=== PATIENT | male | born 1960 | race Caucasian/White ===

== ENCOUNTER → 2018-07-19 | Outpatient (CLI) | payer OTHER, SELFPAY ==
[2018-07-11 08:14] VITALS: BMI 28.7
--- NOTE | 2018-07-19 13:03 | RAD_ITS ---
STUDY: X-RAY - LUMBAR SPINE REASON FOR EXAM: Male, 58 years old. Chronic low back pain. TECHNIQUE: AP and lateral view(s) of the lumbar spine were obtained. COMPARISON: None FINDINGS: Normal lumbar lordosis. There is mild levoscoliosis. There is minimal retrolisthesis of L1 over L2 and L2 over L3. There is mild anterior wedging of T12 and L1 vertebrae with mild endplate spondylosis. Normal disc space heights. There is no demonstrated fracture. There is atherosclerotic calcification of the abdominal aorta without a demonstrated aneurysm. RAD/Lumbar Spine 2 or 3 Views IMPRESSION: Degenerative changes of the spine, as detailed above. Electronically Signed: Gordy Vogt MD at 13:05 EDT Tel , Service support ,
--- NOTE | 2018-07-19 13:12 | RAD_ITS ---
STUDY: X-RAY - SACRUM/COCCYX REASON FOR EXAM: Male, 58 years old. Chronic low back pain. TECHNIQUE: 3 view(s) of the sacrum and coccyx were obtained. COMPARISON: None. FINDINGS: Normal bilateral sacroiliac joints. Normal visualized sacral ala and fused sacral bodies. Normal sacrococcygeal junction with a normal angulation. Normal coccygeal segments. Metallic densities are seen overlying the left side of the pelvis. RAD/Sacrum-Coccyx min 2 Views IMPRESSION: No demonstrated acute changes. Electronically Signed: Gordy Vogt MD at 13:06 EDT Tel , Service support ,
== END | disposition home or self-care (01) ==
LOC: RAD 13:00
PROVIDERS: Family Provider Family Medicine; PCP Family Medicine; Referring Provider Anesthesiology Pain Medicine; Visit Provider Anesthesiology Pain Medicine
DX: M54.9 Dorsalgia, unspecified (principal)
CPT/HCPCS: 72100; 72220

== ENCOUNTER → 2018-10-02 | Outpatient (CLI) | payer OTHER, SELFPAY ==
[2018-07-25 16:03] VITALS: BMI 29.2
[2018-10-02 16:36] LABS: Amphetamine Urine VISTA NEGATIVE (<1000 ng/mL); Barbiturate Urine VISTA NEGATIVE (< 200 ng/mL); Benzodiazepine Urine VISTA NEGATIVE (< 200 ng/mL); Cocaine Urine VISTA NEGATIVE (< 300 ng/mL); Ecstacy Urine VISTA NEGATIVE (< 500 ng/mL); Methadone Urine VISTA NEGATIVE (< 300 ng/mL); PCP Urine VISTA NEGATIVE (< 25 ng/mL); THC Urine VISTA NEGATIVE (< 50 ng/mL); Vista UDS pH Range 6
== END | disposition home or self-care (01) ==
LOC: LAB 14:42
PROVIDERS: Family Provider Family Medicine; PCP Family Medicine; Referring Provider Anesthesiology Pain Medicine; Visit Provider Anesthesiology Pain Medicine
DX: F11.20 Opioid dependence, uncomplicated (principal)
CPT/HCPCS: 80307

== ENCOUNTER → 2019-07-02 | Outpatient (CLI) | payer OTHER, SELFPAY ==
[2019-07-02 11:38] VITALS: BMI 29.2
[2019-07-02 13:54] LABS: ALB/GLOB Ratio 0.9 RATIO (0.9-2.4); AST(SGOT) 19 U/L (15-37); Alanine Aminotransfer ALT/SGPT 36 U/L (16-61); Albumin, Serum 3.7 g/dL (3.2-5.0); Alkaline Phosphatase 107 U/L (45-117); Anion Gap 4 (5-15); BUN 7 mg/dL (7-18); BUN/Creat Ratio 6.1 RATIO (10-20); Calcium,Total 9.7 mg/dL (8.5-10.1); Chloride 101 mmol/L (98-107); Creatinine, Serum 1.15 mg/dL (0.70-1.30); EST Glomerular Filtration Rate 69 mL/min (>60); Est Glom Filt Rate - Afr Amer 83 mL/min (>60); Globulin 4.2 g/dL (2.2-4.2); Glucose 264 mg/dL (74-106); Protein, Total 7.9 g/dL (6.4-8.2); Sodium Level 136 mmol/L (136-145); Uric Acid 6.1 mg/dL (3.5-7.2)
== END | disposition home or self-care (01) ==
LOC: LABSPEC 12:43
PROVIDERS: PCP Family Medicine; Referring Provider Family Medicine; Visit Provider Family Medicine
DX: M10.9 Gout, unspecified (principal)
CPT/HCPCS: 80053; 84550

== ENCOUNTER → 2019-11-06 08:49 | Outpatient (CLI) | payer OTHER, SELFPAY ==
[2019-08-13 15:53] VITALS: BMI 29.2
[2019-11-06 13:02] LABS: Hemoglobin A1c 6.3 % (3.8-5.6)
== END ==
LOC: BIMLAB 08:50
PROVIDERS: PCP Family Medicine; Referring Provider Family Medicine; Visit Provider Family Medicine
DX: E11.65 Type 2 diabetes mellitus with hyperglycemia (principal)
CPT/HCPCS: 36415; 83036

== ENCOUNTER → 2021-12-28 | Outpatient (CLI) | payer OTHER, SELFPAY ==
[2021-12-28 08:17] LABS: Bacteria 0 SEEN /hpf (None Seen); Mucous, Urine 0 SEEN /hpf (<or=2+); Squamous Epithelial Cells - UA 0 SEEN /hpf (0-5); White Blood Cells 0 SEEN /hpf (0-5)
[2021-12-28 12:02] LABS: Color, Urine Yellow (Yellow); Glucose, Dipstick Normal (Normal); Ketone-Dipstick Negative (Negative); Leukocyte Esterase-Dipstick Negative /ul (Negative); Nitrite-Dipstick Negative (Negative); Occult Blood-Urine 50 /ul (Negative); Protein-Dipstick 500 mg/dl (Negative); Specific Gravity, Urine 1.015 (1.002-1.030); Urine Bilirubin Dipstick Negative (Negative); Urine Clarity Clear (Clear); Urine Urobilinogen Normal (Normal)
[2021-12-28 12:19] LABS: BNP,B-Type NATRIURETIC PEPTIDE 41.8 pg/mL (0-100)
[2021-12-28 12:28] LABS: Red Blood Cells-Urine 0-5 SEEN /hpf (0-5)
[2021-12-28 12:35] LABS: ALB/GLOB Ratio 0.7 RATIO (0.9-2.4); AST(SGOT) 11 U/L (15-37); Alanine Aminotransfer ALT/SGPT 18 U/L (16-61); Albumin, Serum 2.7 g/dL (3.2-5.0); Alkaline Phosphatase 142 U/L (45-117); Anion Gap 5 (5-15); BUN 18 mg/dL (7-18); BUN/Creat Ratio 8.1 RATIO (10-20); Calcium,Total 8.8 mg/dL (8.5-10.1); Chloride 113 mmol/L (98-107); Creatinine, Serum 2.23 mg/dL (0.70-1.30); EST Glomerular Filtration Rate 32 mL/min (>60); Est Glom Filt Rate - Afr Amer 39 mL/min (>60); Globulin 3.7 g/dL (2.2-4.2); Glucose 125 mg/dL (74-106); Potassium 3.7 mmol/L (3.5-5.1); Protein, Total 6.4 g/dL (6.4-8.2); Sodium Level 143 mmol/L (136-145); Thyroid Stim Hormone (TSH) 5.42 uIU/mL (0.358-3.74)
== END | disposition home or self-care (01) ==
LOC: BIMLAB 08:17
PROVIDERS: PCP Family Medicine; Referring Provider Family Medicine; Visit Provider Family Medicine
DX: R60.9 Edema, unspecified (principal); E11.9 Type 2 diabetes mellitus without complications; I10 Essential (primary) hypertension
CPT/HCPCS: 36415; 80053; 81001; 82043; 82570; 83880; 84443

== ENCOUNTER 2022-01-26 09:41 | Outpatient (CLI) | payer OTHER, SELFPAY ==
[2022-01-26 13:30] LABS: Protein, Urine (Random) 1451.7 mg/dL (<11.9); Protein:Creat Ratio 9809 mg/g CRE (0-200); Uric Acid 6.4 mg/dL (3.5-7.2)
[2022-01-27 20:27] LABS: ANTINUCLEAR ANTIBODIES DIRECT Negative (Negative)
[2022-01-30 13:07] LABS: PROEL- A/G Ratio 0.7 (0.7-1.7); PROEL- Albumin 2.5 g/dL (2.9-4.4); PROEL- Alpha-1 Globulin 0.3 g/dL (0.0-0.4); PROEL- Gamma Globulin 1.4 g/dL (0.4-1.8); PROEL- Globulin, Total 3.7 g/dL (2.2-3.9); PROEL- TOTAL PROTEIN 6.2 g/dL (6.0-8.5); PROELU- Albumin, Urine 64.2 % (.); PROELU- Alpha-1-Globulin,Ur 6.9 % (.); PROELU- Alpha-2-Globulin,Ur 8.4 % (.); PROELU- Beta Globulin, Ur 10.8 % (.); PROELU- Gamma Globulin, Ur 9.7 % (.)
[2022-01-30 17:39] LABS: Complement C3 147 mg/dL (82-167)
[2022-02-01 14:38] LABS: Anti-Nuclear Antibody Test Negative (.)
== END 2022-01-26 23:59 | disposition home or self-care (01) ==
LOC: POLAB3 09:42
PROVIDERS: PCP Family Medicine; Visit Provider Internal Medicine Nephrology
DX: N18.32 Chronic kidney disease, stage 3b (principal); R80.9 Proteinuria, unspecified; M10.9 Gout, unspecified
CPT/HCPCS: 36415; 82570; 84156; 84165; 84166; 84550; 86038; 86160

== ENCOUNTER 2022-02-13 14:15 | Outpatient (CLI) | payer OTHER, SELFPAY ==
--- NOTE | 2022-02-13 14:21 | US_ITS ---
HISTORY: KIDNEY DISEASE. TECHNIQUE: Velazquez scale and color doppler images were obtained of the kidneys. 84 images. COMPARISON: None. FINDINGS: RIGHT KIDNEY: 13.2 cm in length with a cortical thickness of 2.2 cm. Echogenicity unremarkable. No hydronephrosis. 3 mm lower pole calculus. LEFT KIDNEY: 13.2 cm in length with a cortical thickness of 1.8 cm. Echogenicity unremarkable. No hydronephrosis. 3 mm upper pole calculus. URINARY BLADDER: Partially distended at 134 cc with 3-4 mm wall thickness. Bilateral ureteral jets visualized. PROSTATE GLAND: 3.7 x 3.7 x 5.5 cm. SPLEEN:15.1 cm in length. Mild perisplenic free fluid. US/Kidney and Bladder IMPRESSION: Small nonobstructing bilateral renal calculi. Mildly enlarged prostate gland. Splenomegaly with mild perisplenic ascites. Electronically Signed: Christiana Antony MD at 15:15 EST ,
== END 2022-02-13 23:59 | disposition home or self-care (01) ==
LOC: US 14:18
PROVIDERS: PCP Family Medicine; Referring Provider Internal Medicine Nephrology; Visit Provider Internal Medicine Nephrology
DX: N18.32 Chronic kidney disease, stage 3b (principal)
CPT/HCPCS: 76770

== ENCOUNTER → 2022-02-28 | Outpatient (CLI) | payer OTHER, SELFPAY ==
[2022-02-28 07:39] LABS: Albumin, Serum 2.3 g/dL (3.2-5.0); BUN 15 mg/dL (7-18); BUN/Creat Ratio 5.9 RATIO (10-20); Calcium,Total 8.6 mg/dL (8.5-10.1); Chloride 112 mmol/L (98-107); Creatinine, Serum 2.53 mg/dL (0.70-1.30); EST Glomerular Filtration Rate 28 mL/min (>60); Est Glom Filt Rate - Afr Amer 33 mL/min (>60); Glucose 110 mg/dL (74-106); Phosphorus 3.2 mg/dL (2.5-4.9); Potassium 2.9 mmol/L (3.5-5.1); Sodium Level 144 mmol/L (136-145)
== END | disposition home or self-care (01) ==
PROVIDERS: PCP Family Medicine; Referring Provider Internal Medicine Nephrology; Visit Provider Internal Medicine Nephrology
DX: N04.9 Nephrotic syndrome with unspecified morphologic changes (principal)
CPT/HCPCS: 36415; 80069

== ENCOUNTER 2024-06-27 04:57 | Inpatient (IN) | payer MEDICAID, SELFPAY ==
[2024-06-27] VITALS (52 sets, daily range): BP systolic 78–166; BP diastolic 48–85; PULSE 55–124; RESP 12–34; TEMP 36.2–36.9; O2SAT 88–100; BMI 28.4; BMI 28.5; BMI 28.3
--- NOTE | 2024-06-27 05:03 | RAD_ITS ---
PROCEDURE: CHEST 1 VIEW (PORTABLE) 06/27/2024 REASON FOR EXAM: SOB TECHNIQUE: Frontal view of the chest. COMPARISON: None. FINDINGS: The cardiac silhouette is mildly enlarged. Moderate interstitial pulmonary congestion. Minimal bilateral pleural effusions. Passive atelectatic airspace disease in the lower lobes. Mild degenerative joint disease. Normal mediastinum and jordy. Normal visualized pulmonary arteries. Normal visualized aortic arch and descending thoracic aorta. Mild diffuse spondylosis of the visualized thoracic spine. Normal visualized ribs, clavicles, and shoulders. There is no demonstrated abnormality of the visualized soft tissue structures of the upper abdomen. RAD/Chest 1 View (Portable) IMPRESSION: 1. The cardiac silhouette is mildly enlarged. 2. Moderate interstitial pulmonary congestion. 3. Minimal bilateral pleural effusions. 4. Passive atelectatic airspace disease in the lower lobes. 5. Mild degenerative joint disease. Reading Location[facility] [address]
--- NOTE | 2024-06-27 05:03 | EKG12_ITS ---
Test Reason : DYSRHYTHMIA Blood Pressure : */* mmHG Vent. Rate : 91 BPM Atrial Rate : 91 BPM P-R Int : 106 ms QRS Dur : 118 ms QT Int : 392 ms P-R-T Axes : 41 11 228 degrees QTcB Int : 482 ms Sinus rhythm with short AL Non-specific intra-ventricular conduction delay Marked ST abnormality, possible inferior subendocardial injury Marked ST abnormality, possible anterior subendocardial injury Prolonged QT Abnormal ECG Confirmed by OCTAVIANO BALDWIN, ORTEGA ([id number]), features editor JAMES SMITH ([id number]) on 06/30/2024 8:41:46 AM Referred By: Confirmed By: ORTEGA BRUMFIELD MD
--- NOTE | 2024-06-27 05:06 | EDS_ITS ---
HPI History of Present Illness Chief Complaint: Shortness of Breath Informant: patient Narrative Narrative: Patient is 64-year-old male with history of type 2 diabetes mellitus, hypertension, nephrotic syndrome, CKD 4 and tobacco use presenting with shortness of breath. Patient woke his up early this morning because he was having a hard time breathing. called 911. When EMS arrived patient was in the low 70s on room air (he does not wear home air at baseline). He was not responding well to nonrebreather and was placed on CPAP for EMS. They did give him a breathing treatment with no significant improvement of symptoms for the patient. His O2 saturation did finally come up with CPAP. Patient tells me that he felt fine yesterday. He notes he has had a cough but states he had pneumonia in April to them a while to recover from that. He has chronic swelling of his legs but denies any acute change in it. No fevers or chills reported. Denies any recent sick contacts URI symptoms. Denies any history of DVT or PE. He denies any chest pain and just states that he is having a hard time breathing. EMS does report that he was very diaphoretic when they arrived. [facility] Medical History Tobacco use HTN (hypertension) HTN (hypertension) Hearing problem Back problem Seasonal allergies Home Medications ?Medication ?Instructions ?Recorded ?Last Taken ?Type blood sugar diagnostic (Accu-Chek #10 ea 07/09/19 Unkn own History Erika Plus test strips) blood-glucose meter (Accu-Chek #1 ea 07/09/19 Unknown History Erika Plus Meter) blood pressure monitor (Blood #1 ea 09/29/21 Unknown R x Pressure Kit) compr.stocking,knee,long,large #12 ea 09/29/21 Unknown Rx amlodipine 10 mg tablet 10 mg PO DAILY #30 tabs 07/04 Unknown Rx valsartan 320 mg tablet 320 mg PO DAILY #30 tabs 07/04 Unknown Rx Allergy/AdvReac Type Severity Reaction Status Date / Time ciprofloxacin (From Cipro) Allergy Hives Verified 06/27/24 05:05 ciprofloxacin HCl (From Allergy Hives Verified 06/27/24 05:05 Cipro) meperidine HCl (From Demerol) AdvReac Other Verified 06/27/24 05:05 Family History Other Hypertension Surgical History History of hernia repair Social History Smoking Status: Heavy Smoker (>10/day) Tobacco: How many years used: 20 second hand exposure: Yes alcohol intake: never substance use type: does not use what type of physical activity do you participate in: walking frequency: daily duration: 60-90 minutes/day ROS ROS ED ROS Narrative Review of systems is limited secondary to patient's acute respiratory distress Constitutional Constitutional ED: Reports sweats Cardiovascular Cardiovascular: Denies chest pain or palpitations Respiratory/Chest Respiratory/Chest: Reports cough and dyspnea Gastrointestinal Gastrointestinal: Denies vomiting EXAM Physical Exam Const Vital Signs: 06/27/24 04:58 06/27/24 05:00 06/27/24 05:02 Temperature 97.2 F L 97.2 F L Temperature Source Oral Oral Pulse Rate 91 92 91 Respiratory Rate 33 H 34 H 30 H Respiratory Effort Respiratory Pattern Tachypnea Blood Pressure 166/67 H 166/67 H Blood Pressure Mean 100 100 Pulse Ox 100 99 100 Oxygen Delivery Method Bi-pap Bi-pap Oxygen Flow Rate (L/min) Fraction of Inspired Oxygen (FIO2) 70 06/27/24 05:03 06/27/24 05:07 06/27/24 05:28 Temperature Temperature Source Pulse Rate 92 Respiratory Rate 21 H Respiratory Effort Short of Breath Labored Respiratory Pattern Tachypnea Blood Pressure 154/66 H Blood Pressure Mean 95 Pulse Ox 96 Oxygen Delivery Method Bi-pap Bi-pap Bi-pap Oxygen Flow Rate (L/min) Fraction of Inspired Oxygen (FIO2) 06/27/24 05:30 06/27/24 05:54 06/27/24 06:00 Temperature Temperature Source Pulse Rate 90 89 90 Respiratory Rate 22 H 23 H 21 H Respiratory Effort Respiratory Pattern Blood Pressure 162/67 H 135/64 H Blood Pressure Mean 98 87 Pulse Ox 96 95 96 Oxygen Delivery Method Bi-pap Bi-pap Bi-pap Oxygen Flow Rate (L/min) Fraction of Inspired Oxygen (FIO2) 06/27/24 06:03 06/27/24 06:28 06/27/24 06:30 Temperature 97.2 F L Temperature Source Pulse Rate 88 88 94 Respiratory Rate 21 H 24 H Respiratory Effort Respiratory Pattern Blood Pressure 135/64 H 142/69 H 142/69 H Blood Pressure Mean 87 93 Pulse Ox 96 91 Oxygen Delivery Method Nasal Cannula Oxygen Flow Rate (L/min) 2 Fraction of Inspired Oxygen (FIO2) 06/27/24 06:30 06/27/24 06:52 06/27/24 06:58 Temperature Temperature Source Pulse Rate 85 87 Respiratory Rate 19 H 23 H Respiratory Effort Respiratory Pattern Blood Pressure 144/63 H 144/63 H Blood Pressure Mean 90 90 Pulse Ox 93 95 94 Oxygen Delivery Method Nasal Cannula Nasal Cannula Nasal Cannula Oxygen Flow Rate (L/min) 2 2 2 Fraction of Inspired Oxygen (FIO2) Constitutional Narrative: Patient is in acute respiratory distress upon arrival HEENT Reports moist mucous membranes Eyes PERRL and EOMs intact bilaterally Neck Neck Narrative: JVD present Resp Resp Narrative: Tachypneic. Coarse breath sounds at the bases. No wheezing appreciated. Cardio regular rate and regular rhythm GI non-tender and non-distended Extremity Extremity Narrative: Chronic appearing pitting edema of the lower extremities General Extremety ED: Yes edema; Negative for tenderness General Extremity: edema Neuro oriented x3 Sensorium / Orientation: alert Motor Exam: general weakness Psych mental status grossly normal Skin Skin Narrative: Sallow complexion. Changes of the stomach consistent with erythema ab igne MDM MDM MDM Narrative Medical decision making narrative: Patient evaluated for acute onset of difficulty breathing. Upon arrival patient is acute respiratory distress requiring BiPAP. His breath sounds are coarse but not overly wet. They are diminished at the bases. Do not appreciate any wheezing. Suspect this is more fluid or cardiogenic. Patient's vital signs otherwise significant for mild tachycardia and hype rtension. He is tachypneic. EKG shows a strain pattern. Chart review shows that patient has not had blood work in years does of a history of nephrotic syndrome but due to financial constraints has not been able to follow-up or have any blood work. He was treated for pneumonia at the beginning of April. Differential includes flash pulmonary edema, CHF exacerbation, nephrotic syndrome, fluid overload, metabolic acidosis, acute renal failure, sepsis (suspect less likely as he does not have fever or report any recent infectious symptoms), symptomatic anemia and COPD exacerbation/pneumonia. Chest x-ray 1 view reviewed by myself shows pleural effusions and pulmonary vascular congestion. Patient is given IV Lasix and started on nitro drip to decrease preload. CBC shows a leukocytosis as well as anemia with hemoglobin 8.2. Patient denies any abnormal bleeding. Does not know of any history of anemia. Suspect the leukocytosis reactive at this point. BMP shows renal failure with a creatinine of 9.20 and a BUN of 70. His anion gap is 18 and his bicarb is 8.6. Potassium is actually normal. Lactate elevated at 2.6 however I do not think this is sepsis I think this is more secondary to his acute respiratory decompensation. While in the ER patient's work of breathing significantly improved. Transitioned to nasal cannula. He continues to be tachypneic but I suspect this is compensation for his metabolic acidosis and associated with fluid overload/pulmonary vascular congestion. I spoke with Dr. Rush, nephrology. He will see the patient. He recommends 2 amps of bicarb (100 mill equivalents). He will provide further recommendations when he sees the patient. Page out for admission to hospitalist. Lab Data Labs: Laboratory Results - last 24 hr 06/27/24 05:05 WBC 13.6 H RBC 2.85 L Hgb 8.2 L Hct 25.7 L MCV 90.2 MCH 28.8 MCHC 31.9 L RDW Std Deviation 54.5 H RDW Coeff of Hallie 16.4 H Plt Count 290 MPV 10.6 Immature Gran % (Auto) 0.700 Neut % (Auto) 62.9 Lymph % (Auto) 22.5 Ramsey % (Auto) 4.4 Eos % (Auto) 8.6 H Baso % (Auto) 0.9 Absolute Neuts (auto) 8.6 H Absolute Lymphs (auto) 3.07 Nucleated RBC % 0 Sodium 137 Potassium 4.6 Chloride 110 H Carbon Dioxide 8.6 L* Anion Gap 18 H BUN 70 H Creatinine 9.20 H* Estim Creat Clear Calc 8.76 L* Est GFR (MDRD) Non-Af 6 L BUN/Creatinine Ratio 7.6 L Glucose 198 H Lactic Acid 2.6 H* Calcium 8.0 ABG Data ABG results: ABG 06/27/24 05:20 Specimen Type ART Sample Site R Radial pH 7.02 L* Bicarbonate Actual 9.5 L Total CO2 11 Base Excess -22 L O2 Saturation 99 O2 % 70.0 ABG pCO2 37.2 ABG pO2 214 H Alberto Test Positive O2 Delivery Device BiPAP Vent Mode Not entered Crit Call To/Read Back Yes Blood Gas Notified Whom [facility] Blood Gas Notified Time 05:22:20 Clinical Comments 25/12 14 70% Radiography Diagnostic Testing: Clinical Impression(s) from Imaging Studies Chest X-Ray 06/27/24 05:03 IMPRESSION: 1. The cardiac silhouette is mildly enlarged. 2. Moderate interstitial pulmonary congestion. 3. Minimal bilateral pleural effusions. 4. Passive atelectatic airspace disease in the lower lobes. 5. Mild degenerative joint disease. Reading Location: [place] [address] Rhythm Strip Rhythm Strip: Sinus Rhythm Rate: 91 Ectopy: None EKG Initial EKG: Attestation: I personally reviewed and interpreted this EKG as follows: Comments: Normal sinus rhythm at a rate of 91 bpm Normal axis Strain pattern with ST depressions in the inferior as well as precordial leads with no reciprocal changes No prior EKG available for comparison Critical Care Time Critical Care Time: Yes Critical care time (excluding procedures): 30-74 minutes (50), Discussing w/Patient &/or Family/Licensed Dispensing Optician, Discussing w/Consultants (Nephrology ), Arranging Admission or Transfer and Performing Direct Patient Care at Bedside (Titrating bipap/ O2 ) Discharge Plan Triage Chief Complaint: Shortness of Breath ED Provider: Radhika Solano Dx/Rx/DC Orders Clinical Impression: Acute hypoxemic respiratory failure, Acute renal failure, Metabolic acidosis, Pulmonary vascular congestion Prescriptions: No Action (DME) blood-glucose meter [Accu-Chek Erika Plus Meter] Misc See Rx Instructions .ROUTE .MEDSUPPLY Qty: 1 Rx Instructions: As directed once daily (DME) blood sugar diagnostic [Accu-Chek Erika Plus test strp] Strip See Rx Instructions .ROUTE .MEDSUPPLY Qty: 10 Rx Instructions: As directed once daily (DME) blood pressure monitor [Blood Pressure Kit] Kit See Rx Instructions .Route Qty: 1 0RF Rx Instructions: Check blood pressure twice a day (DME) compr.stocking,knee,long,large Misc See Rx Instructions .Route Qty: 12 0RF Rx Instructions: wear daily 20-30mmHg valsartan 320 mg tablet 320 mg PO DAILY Qty: 30 2RF amlodipine 10 mg tablet 10 mg PO DAILY Qty: 30 2RF Primary Care Provider: Omar Trejo Referrals: Omar Trejo, [Primary Care Provider] - Print Language: [place] Disposition Disposition: Acute Care [facility]
[2024-06-27 05:12] LABS: Absolute Lymphocyte Count 3.07 X10^3/uL (0.83-4.51); Absolute Neutrophil Count 8.6 X10^3/uL (2.0-7.7); Basophil# 0.12 X10^3/uL; Basophil% 0.9 % (0-1); Eosinophil# 1.17 X10^3/uL; Eosinophils% 8.6 % (0-5); Hematocrit 25.7 % (40-54); Hemoglobin 8.2 g/dL (13.0-16.5); Lymphocyte # 3.07 X10^3/ul (0.83-4.51); Lymphocyte % 22.5 % (19-41); Mean Corp Hgb Conc 31.9 g/dL (32-36); Mean Corpuscular Hgb 28.8 pg (27.0-32.0); Mean Corpuscular Volume 90.2 fL (80-94); Mean Platelet Vol. 10.6 fl (6.2-12.0); Monocyte% 4.4 % (0-10); NRBC Flagged by Analyzer 0 % (0-5); Neutrophil # 8.58 X10^3/uL (2.7-7.7); Neutrophil % 62.9 % (47-70); Platelet Count 290 K/mm3 (150-450); RBC Distribution Width CV 16.4 % (11.6-14.6); RBC Distribution Width SD 54.5 fl (35.1-43.9); Red Blood Count 2.85 M/mm3 (4.6-6.2); White Blood Count 13.6 K/mm3 (4.4-11.0)
[2024-06-27 05:25] LABS: Allen Test Positive; Base Excess -22 mmol/L (-2 to +2); Bicarbonate 9.5 mmol/L (22-26); Blood Gas Specimen Type ART; Comment 16/10 14 70%; Mode Not entered; O2 Delivery Device BiPAP; PO2 214 mmHG (75-100); SITE R Radial; SO2 99 % (95-99); Total Carbon Dioxide 11 mmol/L; pCO2 37.2 mmHg (35-45); pH 7.02 (7.35-7.45)
[2024-06-27] MEDS: Furosemide 40 MG/4 ML Vial IV (05:44)
[2024-06-27 06:23] LABS: Lactic Acid 2.6 mmol/L (0.0-2.0)
[2024-06-27 06:24] LABS: Anion Gap 18 (5-15); BUN 70 mg/dL (4-19); BUN/Creat Ratio 7.6 RATIO (10-20); Carbon Dioxide 8.6 mmol/L (21.0-32.0); Chloride 110 mmol/L (98-108); EST Glomerular Filtration Rate 6 (>60); Estimated Creatinine Clearance 8.76 ml/min (50-250); Glucose 198 mg/dL (70-99); Potassium 4.6 mmol/L (3.3-5.1); Sodium Level 137 mmol/L (133-145)
[2024-06-27] MEDS: Nitroglycerin Infusion 250 ML 3 MG CONT INF (06:28)
--- NOTE | 2024-06-27 07:11 | ED.RN ---
Nitro IV administration time delayed due to no functioning IV pumps being in the ER. Hospitalist was made aware and brought more pumps upon request.
[2024-06-27 07:23] LABS: Pro- Brain NATRIURETIC PEPTIDE 48591 pg/mL (<=900); Troponin T High Sensitivity 67 ng/L (<=22)
[2024-06-27] MEDS: Sodium Bicarbonate 8.4% 50 ML Syringe 100 MEQ IV (07:52)
--- NOTE | 2024-06-27 08:16 | PCM.CONS.R ---
Assessment & Plan Assessment/Plan (1) LG (acute kidney injury): (2) CKD (chronic kidney disease) stage 4, GFR 15-29 ml/min: (3) Acute metabolic acidosis: (4) Acute hypoxic respiratory failure: PLAN: Plan Assessment/Plan: The patient is a 64-year-old male with past history of CKD stage G4, type 2 diabetes mellitus, and hypertension. Patient presents to the hospital with acute hypoxic respiratory failure. Checks x-ray shows bilateral pleural effusion with pulmonary vascular congestion. He was also found to have severe renal dysfunction with creatinine of 9.20 mg/dL and severe acute metabolic acidosis with bicarbonate level of 9 mmol/L. Nephrology is asked to see the patient because of LG on CKD. Acute kidney injury on chronic kidney disease stage G4. Patient has known CKD although he has not been followed by nephrology as outpatient. Based on review of available record it appears that he has been resistant to laboratory checks to monitor renal function as outpatient as well. Serum creatinine was already 3.53 mg/dL, EGFR 28 mL/min on 02/28/2022. Patient had 2+ proteinuria in February 2022 as well. Urine albumin to creatinine ratio was already 9.8 g/g at that time. My suspicion is that he has progression of CKD which is likely due to diabetic kidney disease given prior history of proteinuria. Disease. Given pulmonary edema and pleural effusion along with severe metabolic acidosis, the patient would benefit from starting dialysis today. His respiratory status will be easier to control with volume removal with hemodialysis. Metabolic acidosis will be treated with hemodialysis which will help decrease the work of breathing as well. Once vascular access is established, we will plan on dialyzing the patient today with volume removal. We will start with 2.5-hour treatment time and lower blood flow to avoid dialysis disequilibrium. We will dialyze patient again tomorrow as well with longer treatment time and higher blood flow. I have low suspicion for reversible causes of LG. However, I will check UA and renal ultrasound to be complete. Acute metabolic acidosis. Patient presented with serum bicarbonate level of 9 mmol/L. Metabolic acidosis was likely due to LG on CKD. Patient denies diarrhea. Current severe metabolic acidosis is likely contributing to increased work of breathing. Hemodialysis will help control acidosis without giving him more volume with sodium bicarbonate particularly since he is already volume overloaded. Acute hypoxic respiratory failure. Patient is likely volume overloaded due to kidney failure. Will dialyze patient today. Will remove excess fluid with hemodialysis. Treatment of acute metabolic acidosis should also help with work of breathing. Patient does have high troponin, and cardiology reconsulted. I suspect he has type II NSTEMI given significantly decreased renal function. He will probably need echocardiogram as well. Nephrology plan was discussed with Christopher Hatfield RN and Gaston MORALES from hemodialysis. HPI Consult Data Date of Consult: 06/27/24 HPI Narrative Reason for Consultation: LG on CKD HPI Narrative: The patient is a 64-year-old male with past history of CKD stage G4, type 2 diabetes mellitus, and hypertension. The patient presented to hospital on 06/27/2024 with shortness of breath that woke him up from sleep. The patient denies chest pain, nausea, vomiting or significant change in edema to lower extremities. Chest x-ray showed bilateral pleural effusion with moderate interstitial congestion. Laboratory test showed serum creatinine of 9.20 mg/dL and serum bicarbonate level of 9 mmol/L. Nephrology is asked see the patient because of LG on CKD. Last available serum creatinine prior to this admission was from 02/28/2022. Serum creatinine was 2.53 mg/dL at that time. Last available ultrasound of the kidney was from February 2022 as well. At that time, there were no hydronephrosis of the kidneys but there was enlarged prostate. The patient denies lower urinary tract symptoms such as urinary frequency, urgency or hesitancy. There is no incontinence. [facility] Medical History Tobacco use HTN (hypertension) HTN (hypertension) Hearing problem Back problem Seasonal allergies Home Medications ?Medication ?Instructions ?Recorded ?Last Taken ?Type blood sugar diagnostic (Accu-Chek #10 ea 07/09/19 Unknown History Erika Plus test strips) blood-glucose meter (Accu-Chek #1 ea 07/09/19 Unknown History Erika Plus Meter) blood pressure monitor (Blood #1 ea 09/29/21 Unknown Rx Pressure Kit) compr.stocking,knee,long,large #12 ea 09/29/21 Unknown Rx amlodipine 10 mg tablet 10 mg PO DAILY #30 tabs 04/15/24 Unknown Rx valsartan 320 mg tablet 320 mg PO DAILY #30 tabs 04/15/24 Unknown Rx Allergy/AdvReac Type Severity Reaction Status Date / Time ciprofloxacin (From Cipro) Allergy Hives Verified 06/27/24 05:05 ciprofloxacin HCl (From Allergy Hives Verified 06/27/24 05:05 Cipro) meperidine HCl (From Demerol) AdvReac Other Verified 06/27/24 05:05 Family History Other Hypertension Surgical History History of hernia repair Social History Smoking Status: Heavy Smoker (>10/day) Tobacco: How many years used: 20 second hand exposure: Yes alcohol intake: never substance use type: does not use what type of physical activity do you participate in: walking frequency: daily duration: 60-90 minutes/day ROS ROS Narrative As per HPI, otherwise noncontributory. Physical Exam Narrative General: Alert and oriented x3, NAD. HEENT: Normocephalic, atraumatic. Mucous membrane moist without erythema. PERRLA, EOMI. Hearing is intact. Neck: Supple, no JVD. Trachea is midline. No thyromegaly or lymphadenopathy. Cardiovascular: Normal S1, S2. No rubs, murmurs, or gallops. Respiratory: Decreased breath sound at bases bilaterally. Abdomen: Normal bowel sounds, soft, nontender, no guarding or rebound, no organomegaly. Extremities: There is 1+ edema of the lower extremities. There is no clubbing or cyanosis. Musculoskeletal: Full passive range of motion, no joint swelling. Psychiatric: Depressed mood and flat affect. Skin: Warm and dry, no rash. Neurologic: Cranial nerve II to XII are grossly intact. No focal neurologic deficits. Lab / Micro Data 06/27/24 05:05 06/27/24 05:05 Labs: Laboratory Results - last 24 hr 06/27/24 05:05: WBC 13.6 H, RBC 2.85 L, Hgb 8.2 L, Hct 25.7 L, MCV 90.2, MCH 28.8, MCHC 31.9 L, RDW Std Deviation 54.5 H, RDW Coeff of Hallie 16.4 H, Plt Count 290, MPV 10.6, Immature Gran % (Auto) 0.700, Neut % (Auto) 62.9, Lymph % (Auto) 22.5, Orange % (Auto) 4.4, Eos % (Auto) 8.6 H, Baso % (Auto) 0.9, Absolute Neuts (auto) 8.6 H, Absolute Lymphs (auto) 3.07, Nucleated RBC % 0, Sodium 137, Potassium 4.6, Chloride 110 H, Carbon Dioxide 8.6 L*, Anion Gap 18 H, BUN 70 H, Creatinine 9.20 H*, Estim Creat Clear Calc 8.76 L*, Est GFR (MDRD) Non-Af 6 L, BUN/Creatinine Ratio 7.6 L, Glucose 198 H, Lactic Acid 2.6 H*, Calcium 8.0, Troponin T High Sens 67 H*, [place] [address] H 06/27/24 05:55: Blood Type A POSITIVE, Antibody Screen NEGATIVE ABG Data ABG results: ABG 06/27/24 05:20 Specimen Type ART Sample Site R Radial pH 7.02 L* Bicarbonate Actual 9.5 L Total CO2 11 Base Excess -22 L O2 Saturation 99 O2 % 70.0 ABG pCO2 37.2 ABG pO2 214 H Alberto Test Positive O2 Delivery Device BiPAP Vent Mode Not entered Crit Call To/Read Back Yes Blood Gas Notified Whom [facility] Blood Gas Notified Time 05:22:20 Clinical Comments 25/12 14 70% Rhythm Strip Rhythm Strip: Sinus Rhythm Rate: 91 Ectopy: None Imaging Radiology Impression Chest X-Ray 06/27/24 05:03 IMPRESSION: 1. The cardiac silhouette is mildly enlarged. 2. Moderate interstitial pulmonary congestion. 3. Minimal bilateral pleural effusions. 4. Passive atelectatic airspace disease in the lower lobes. 5. Mild degenerative joint disease. Reading Location: [place] [address]
[2024-06-27 08:21] LABS: Troponin T High Sens 2 HR 218 ng/L (<=22)
--- NOTE | 2024-06-27 08:53 | ECHOL_ITS ---
Reason For Study Reason For Study: DYSPNEA/SOB Procedure This was a limited 2D transthoracic echocardiogram. DR. Marinelli present for STAT limited echo. The study was technically difficult. Exam performed with patient sitting upright due to dyspnea/SOB. Exam performed portable in ICU/CCU. Left Ventricle Normal left ventricle. The left ventricular ejection fraction is 35 %. There is moderate to severe global hypokinesis of the left ventricle. Right Ventricle Normal RV size. Normal systolic function. Atria Normal left atrium. Normal right atrium. Mitral Valve Normal mitral valve. Mild-Moderate (1-2+) eccentric mitral valve insufficiency. Tricuspid Valve Normal tricuspid valve. Aortic Valve The aortic valve is not well visualized. Pulmonic Valve The pulmonic valve is not well visualized. Great Vessels Normal aortic root. Pericardium/Pleural No pericardial effusion. MMode/2D Measurements & Calculations LVAd ap4: 34.4 cm2 LVAd ap2: 43.5 cm2 SV(MOD-sp4): 57.1 ml LVLd ap4: 7.7 cm LVLd ap2: 8.9 cm SI(MOD-sp4): 28.1 ml/m2 EDV(MOD-sp4): 131.2 ml EDV(MOD-sp2): 176.2 ml EDV(sp4-el): 131.4 ml EDV(sp2-el): 181.4 ml LVAs ap4: 24.7 cm2 LVAs ap2: 30.3 cm2 LVLs ap4: 6.9 cm LVLs ap2: 7.4 cm ESV(MOD-sp4): 74.1 ml ESV(MOD-sp2): 104.2 ml ESV(sp4-el): 74.6 ml ESV(sp2-el): 105.8 ml EF(MOD-sp4): 43.5 % EF(MOD-sp2): 40.8 % EF(sp4-el): 43.2 % SV(MOD-sp2): 71.9 ml SV(sp4-el): 56.8 ml SI(MOD-sp2): 35.4 ml/m2 Doppler Measurements & Calculations MR max shabnam: 558.8 cm/sec MR max P.9 mmHg MR mean shabnam: 449.8 cm/sec MR mean P.4 mmHg MR VTI: 159.4 cm ECHO/Echo, Limited Study Interpretation Summary The left ventricular ejection fraction is 35 %. Mild-Moderate (1-2+) eccentric mitral valve insufficiency. Normal left ventricle. Ordering Physician: Leonardo Trejo Referring Physician: Omar Trejo Performed By: Stephanie Watt, LAVONNE, RVT
--- NOTE | 2024-06-27 08:58 | EX.PCM.CONCC ---
Assessment & Plan Assessment/Plan (1) Acute hypoxic respiratory failure: (2) Acute metabolic acidosis: (3) LG (acute kidney injury): (4) Elevated troponin: PLAN: Plan RECOMMENDATIONS: 1. Initiate assist-control mode mechanical ventilation. Wean FiO2 and PEEP as tolerated. 2. Obtain follow-up ABG following completion of dialysis. 3. Fentanyl and propofol for sedation. 4. Okay to discontinue sodium bicarbonate. 5. Repeat echocardiogram once respiratory status has improved. 6. Initiate appropriate ICU prophylaxis. IMPRESSIONS: 1. Acute on chronic kidney disease with concurrent metabolic acidosis Likely secondary to progressive chronic kidney disease in the setting of diabetes mellitus with history of proteinuria. Nephrology is currently following. Given the patient's significant metabolic derangements, I agree with proceeding with emergent dialysis. Urine analysis and renal ultrasound are pending. Once dialysis is initiated, sodium bicarbonate infusion can be discontinued. Given the patient's need for ongoing dialysis support on an outpatient basis, general surgery was consulted for tunneled dialysis catheter placement, which has been tentatively scheduled for Sunday. 2. Acute hypoxemic respiratory failure Secondary to pulmonary edema in the setting of progressive kidney disease, hypervolemia and hypertension. Anticipate improvement with volume optimization via hemodialysis. I would hold off on extubating the patient until his underlying metabolic derangements have improved. He will be continued on assist-control mode of mechanical ventilation, with a goal to wean FiO2 and PEEP to maintain saturations at or above 90%. Will obtain follow-up ABG once dialysis is completed today. Appropriate ICU prophylaxis has been initiated. 3. Troponin elevation Clinical concern for underlying demand ischemia. Cardiology consultation will be obtained along with stat echocardiogram. 4. History of hypertension/diabetes mellitus/chronic back pain Complicates care, management, recovery and prognosis. Continue to hold home medications for now. Continue supportive care as noted above. TIME: 45 minutes of critical care time, independent of procedures, was spent addressing the patient's acute on chronic kidney disease with concurrent metabolic acidosis, acute hypoxemic respiratory failure, troponin elevation, review of all data and collaboration with the care team. HPI Consult Data Date of Consult: 06/27/24 HPI Narrative Reason for Consultation: Acute kidney injury, respiratory failure HPI Narrative: The patient is a 64-year-old male, with a history as outlined below, who presented to the emergency department via EMS on June 27 after awakening this morning with shortness of breath. The patient has a previously established diagnosis of nephrotic syndrome, for which she was previously referred to a wildlife refuge specialist in [place] by his PCP several years ago. However, due to a lack of employment, the patient never followed up with the wildlife refuge specialist. His medical history is also significant for hypertension and diabetes mellitus. The patient was last noted to have a creatinine of 2.53 in February 2022, according to information in our system. On presentation to the emergency department, the patient was documented to be afebrile but was notably tachypneic and hypoxemic. He was initially placed empirically on BiPAP for respiratory support. Laboratory evaluation revealed a white blood cell count of 13,000 with a hemoglobin of 8.2 g/dL and platelet count of 290,000. Arterial blood gas was notable for a pH of 7.02 with a pCO2 of 37 and pO2 of 214. Chemistry profile was notable for a bicarbonate of 8.6 with a BUN of 70 and creatinine of 9.2. Lactate was elevated at 2.6. Troponin was increased at 67. BNP was elevated at 48,591. Chest x-ray demonstrated stigmata of congestive heart failure. The patient was ultimately placed on a sodium bicarbonate infusion and admitted to the medical intensive care unit. On arrival to the ICU, the patient was initially weaned from BiPAP and appeared relatively comfortable. However, a short time later, he again developed significant respiratory distress with increased work of breathing and tachypnea. Given the patient's significant underlying metabolic derangements and concern for his ability to compensate from a respiratory perspective, the decision was made to proceed with intubation. Once intubated, a temporary hemodialysis catheter was placed and dialysis was initiated. General surgery was consulted for tunneled dialysis catheter placement, which has been tentatively scheduled for Sunday. [facility] Medical History Tobacco use HTN (hypertension) HTN (hypertension) Hearing problem Back problem Seasonal allergies Home Medications ?Medication ?Instructions ?Recorded ?Last Taken ?Type blood sugar diagnostic (Accu-Chek #10 ea 07/09/19 Unknown History Erika Plus test strips) blood-glucose meter (Accu-Chek #1 ea 07/09/19 Unknown History Reika Plus Meter) blood pressure monitor (Blood #1 ea 09/29/21 Unknown Rx Pressure Kit) compr.stocking,knee,long,large #12 ea 09/29/21 Unknown Rx amlodipine 10 mg tablet 10 mg PO DAILY #30 tabs 04/15/24 Unknown Rx valsartan 320 mg tablet 320 mg PO DAILY #30 tabs 04/15/24 Unknown Rx Allergy/AdvReac Type Severity Reaction Status Date / Time ciprofloxacin (From Cipro) Allergy Hives Verified 06/27/24 05:05 ciprofloxacin HCl (From Allergy Hives Verified 06/27/24 05:05 Cipro) meperidine HCl (From Demerol) AdvReac Other Verified 06/27/24 05:05 Family History Other Hypertension Surgical History History of hernia repair Social History Smoking Status: Heavy Smoker (>10/day) Tobacco: How many years used: 20 second hand exposure: Yes alcohol intake: never substance use type: does not use what type of physical activity do you participate in: walking frequency: daily duration: 60-90 minutes/day ROS ROS Narrative 10 systems were reviewed with pertinent positives as noted in the HPI above. Physical Exam Const alert Constitutional Narrative: Currently on BiPAP General Appearance: in distress and ill appearing HEENT normocephalic and head/scalp atraumatic Eyes PERRL, EOMs intact bilaterally and conjunctivae normal Neck supple General: trachea midline Chest inspection of chest normal Resp Effort and Inspection: tachypneic and labored Auscultation: rales and diminished lung sounds Cardio S1 normal heart sound and S2 normal heart sound Rate: tachycardic GI soft to palpation and non-tender Extremity General Extremity: edema; Negative for clubbing Skin no rashes or lesions noted Neuro CN's II-XII intact bilaterally, moves all extremities and no focal motor deficits Psych cooperative and affect normal Lab / Micro Data 06/27/24 05:05 06/27/24 05:05 Labs: Laboratory Results - last 24 hr 06/27/24 05:05: WBC 13.6 H, RBC 2.85 L, Hgb 8.2 L, Hct 25.7 L, MCV 90.2, MCH 28.8, MCHC 31.9 L, RDW Std Deviation 54.5 H, RDW Coeff of Hallie 16.4 H, Plt Count 290, MPV 10.6, Immature Gran % (Auto) 0.700, Neut % (Auto) 62.9, Lymph % (Auto) 22.5, [place] % (Auto) 4.4, Eos % (Auto) 8.6 H, Baso % (Auto) 0.9, Absolute Neuts (auto) 8.6 H, Absolute Lymphs (auto) 3.07, Nucleated RBC % 0, Sodium 137, Potassium 4.6, Chloride 110 H, Carbon Dioxide 8.6 L*, Anion Gap 18 H, BUN 70 H, Creatinine 9.20 H*, Estim Creat Clear Calc 8.76 L*, Est GFR (MDRD) Non-Af 6 L, BUN/Creatinine Ratio 7.6 L, Glucose 198 H, Lactic Acid 2.6 H*, Calcium 8.0, Troponin T High Sens 67 H*, [place] [address] H 06/27/24 05:55: Blood Type A POSITIVE, Antibody Screen NEGATIVE 06/27/24 07:20: Troponin T Hi Sens 2 Hr 218 H* ABG Data ABG results: ABG 06/27/24 05:20 Specimen Type ART Sample Site R Radial pH 7.02 L* Bicarbonate Actual 9.5 L Total CO2 11 Base Excess -22 L O2 Saturation 99 O2 % 70.0 ABG pCO2 37.2 ABG pO2 214 H Alberto Test Positive O2 Delivery Device BiPAP Vent Mode Not entered Crit Call To/Read Back Yes Blood Gas Notified Whom [facility] Blood Gas Notified Time 05:22:20 Clinical Comments 25/12 14 70% Rhythm Strip Rhythm Strip: Sinus Rhythm Rate: 91 Ectopy: None Imaging Radiology Impression Chest X-Ray 06/27/24 05:03 IMPRESSION: 1. The cardiac silhouette is mildly enlarged. 2. Moderate interstitial pulmonary congestion. 3. Minimal bilateral pleural effusions. 4. Passive atelectatic airspace disease in the lower lobes. 5. Mild degenerative joint disease. Reading [facility] [address] Charges/Coding Procedures Hospitalists Procedures: 88118 Critical Care 1st Hr
--- NOTE | 2024-06-27 09:08 | EKG12_ITS ---
Test Reason : SOB Blood Pressure : */* mmHG Vent. Rate : 107 BPM Atrial Rate : 107 BPM P-R Int : 126 ms QRS Dur : 122 ms QT Int : 360 ms P-R-T Axes : 47 15 192 degrees QTcB Int : 480 ms Sinus tachycardia Non-specific intra-ventricular conduction delay ST & T wave abnormality, consider inferior ischemia ST & T wave abnormality, consider anterolateral ischemia Abnormal ECG When compared with ECG of 27-Jun-2024 05:09, MANUAL COMPARISON REQUIRED DATA IS UNCONFIRMED Confirmed by Willem Marinelli ([id number]), mapping editor JAMES SMITH ([id number]) on 06/30/2024 8:47:40 AM Referred By: JADYN Confirmed By: Willem Marinelli
[2024-06-27 09:10] LABS: Reflex Lactate? Y
--- NOTE | 2024-06-27 09:23 | US_ITS ---
PROCEDURE: KIDNEY AND BLADDER 06/27/2024 REASON FOR EXAM: LG TECHNIQUE: Bilateral renal ultrasound. COMPARISON: None FINDINGS: Kidneys: Normal renal sizes, parenchymal thicknesses, and echotextures. [place]: No evidence of hydronephrosis. Cysts or Masses: No cysts or large solid renal masses. RIGHT Kidney Size: 10.1 cm x 6.4 cm x 4.1 cm Volume: 139.7 mL Cortical Thickness (if discernible): 1.1 cm (>6mm is normal) LEFT Kidney Size: 10.2 cm x 4.5 cm x 4 cm Volume: 96.5 mL Cortical Thickness (if discernible): 1.1 cm (>6mm is normal) US/Kidney and Bladder IMPRESSION: NORMAL RENAL ULTRASOUND. Reading Location: [id number]
--- NOTE | 2024-06-27 09:30 | NURSING ---
Dr Trejo at bedside to evaluate patient. Patient appears distressed, diaphoretic and tachypneic with mild relief on BiPap. Patient stating I can't breath repeatedly over and over. RR=30, Spo2= 93 on Bipap 35% FiO2, KJ=935 TF=211/82. ABG was obtained by respiratory therapy and Dr Trejo made decision to intubate the patient. Dr Trejo discussed this with the patient and his who agreed to with intubation. Family went to waiting room and patient was intubated by Dr Trejo with this RN and RT Michelle at bedside. Patient tolerated intubation without complication and OG tube was also placed by Dr Trejo at this time with good clinical verification of placement for both. After patient was intubated, patient was prepared for the insertion of right IJ temporary dialysis catheter. Dr Rush had previously discussed dialysis with the patient and family who agreed and signed consent. Right IJ Temporary Dialysis catheter inserted by Dr Trejo without complication. Portable X-ray was obtained to verify placement of Endotracheal tube, OG tube, and Temporary Dialysis catheter. ventilation mechanic at bedside prepared to begin treatment once verification of placement is confirmed.
[2024-06-27 09:34] LABS: Allen Test Positive; Base Excess -18 mmol/L (-2 to +2); Bicarbonate 10.5 mmol/L (22-26); Blood Gas Specimen Type ART; Mode Not entered; O2 Delivery Device BiPAP; PEEP 10; PO2 82 mmHG (75-100); SITE R Radial; SO2 93 % (95-99); Total Carbon Dioxide 11 mmol/L; pCO2 29.2 mmHg (35-45); pH 7.16 (7.35-7.45)
--- NOTE | 2024-06-27 09:34 | CON.PCM.CA_ITS ---
Assessment & Plan Assessment/Plan (1) Acute hypoxic respiratory failure: PLAN: Patient presenting with progressive shortness of breath and dyspnea on exertion as well as resting hypoxia with O2 saturation measured at 70% in his home by EMS. The patient is now being maintained on BiPAP but he is struggling with increased respiratory rate given his metabolic acidosis. This is being managed by the wind site manager service. (2) Acute metabolic acidosis: PLAN: Patient's metabolic acidosis appears to be related to acute renal insufficiency on chronic renal failure. The patient's stat echocardiogram did show apical hypokinesis with an EF estimated 45% but is difficult to interpret given the patient's respiratory status. (3) LG (acute kidney injury): PLAN: The acute renal injury will require dialysis per the intensive care service. The patient is not hyperkalemic but he is uremic and acidotic. By physical exam he does appear to be volume overloaded. Placement of dialysis catheters to be deferred to the intensive care service. Once the patient's respiratory status is better controlled from a cardiovascular standpoint the patient could proceed with more permanent tunneled catheter replacement. (4) HTN (hypertension): QUALIFIERS: Hypertension type: primary hypertension Qualified Code(s): I10 - Essential (primary) hypertension PLAN: Patient's blood pressure is being maintained adequately at this time. He does carry a history of hypertension he is treated with amlodipine and valsartan in his home environment. The valsartan should be discontinued until he are able to determine the patient's long-term renal status. (5) Elevated troponin: PLAN: Patient's troponins were minimally elevated at 67 on his first set into 18 on the 2-hour delta troponin. This would be expected for someone with a history of hypertension diabetes mellitus and profound hypoxia. The patient does have some segmental wall motion abnormality in the apex of the left ventricle that has the appearance of [place] believe Takotsubo syndrome. This will have to be more definitively evaluated when his respiratory status is optimized. PLAN: Plan 1. Once respiratory status is optimized from a cardiovascular pant standpoint the patient should be able to proceed with surgical intervention to place his tunneled catheter. 2. Agree with need for urgent volume removal and dialysis for the patient's acidosis. 3. Will follow-up with a formal echocardiogram once respiratory status is stabilized and we can get better images. 4. I will follow-up as you direct. HPI Consult Data Date of Consult: 06/27/24 HPI Narrative Reason for Consultation: Elevated troponins HPI Narrative: ELSIE VILLALPANDO, is a 64 M who presents with progressive shortness of breath. He has a history of nephrotic syndrome and had been lost to follow-up for the last couple years. Patient does have a history of type 2 diabetes, hypertension, and nephrotic syndrome. The patient awoke his early this morning complaining of progressive shortness of breath that he could not recover from. He has a long history of chronic lower extremity edema. This really has not changed. His breathing is what has deteriorated recently. He has reported having pneumonia in April 2024 and is never really completely gotten back to baseline. Patient's O2 saturation was 70% on arrival of the EMS that his home. He required BiPAP to get him up to the acceptable ranges. The patient has no prior cardiac history that he is aware of. A stat limited echo shows apical hypokinesis and ejection fraction of approximately 45%. The initial echocardiogram is difficult to interpret but it appears it could be consistent with Takotsubo's. The patient does not have a family history of early coronary disease, he is diabetic, he does have a history of hypertension, and he is an active smoker. Not aware of his lipid status. [facility] Medical History Tobacco use HTN (hypertension) HTN (hypertension) Hearing problem Back problem Seasonal allergies Home Medications ?Medication ?Instructions ?Recorded ?Last Taken ?Type blood sugar diagnostic (Accu-Chek #10 ea 07/09/19 Unkn own History Erika Plus test strips) blood-glucose meter (Accu-Chek #1 ea 07/09/19 Unknown History Erika Plus Meter) blood pressure monitor (Blood #1 ea 09/29/21 Unknown R x Pressure Kit) compr.stocking,knee,long,large #12 ea 09/29/21 Unknown Rx amlodipine 10 mg tablet 10 mg PO DAILY #30 tabs 07/04 Unknown Rx valsartan 320 mg tablet 320 mg PO DAILY #30 tabs 07/04 Unknown Rx Allergy/AdvReac Type Severity Reaction Status Date / Time ciprofloxacin (From Cipro) Allergy Hives Verified 06/27/24 05:05 ciprofloxacin HCl (From Allergy Hives Verified 06/27/24 05:05 Cipro) meperidine HCl (From Demerol) AdvReac Other Verified 06/27/24 05:05 Family History Other Hypertension Surgical History History of hernia repair Social History Smoking Status: Heavy Smoker (>10/day) Tobacco: How many years used: 20 second hand exposure: Yes alcohol intake: never substance use type: does not use what type of physical activity do you participate in: walking frequency: daily duration: 60-90 minutes/day ROS Review of Systems ROS Unobtainable: other Details: Patient working very hard to breathe on CPAP. Constitutional Constitutional: Reports as per HPI Eyes Eyes: Reports systems reviewed and no addt'l complaints, except as documented ENT HEENT: Reports systems reviewed and no addt'l complaints, except as documented Cardiovascular Cardiovascular: Reports as per HPI Respiratory/Chest Respiratory/Chest: Reports as per HPI Gastrointestinal Gastrointestinal: Reports systems reviewed and no addt'l complaints, except as documented Genitourinary Genitourinary: Reports as per HPI Musculoskeletal Musculoskeletal: Reports as per HPI Integumentary Integumentary: Reports systems reviewed and no addt'l complaints, except as documented Neurologic Neurologic: Reports systems reviewed and no addt'l complaints, except as documented Psychiatric Psychiatric: Reports systems reviewed and no addt'l complaints, except as documented Endocrine Endocrinology: Reports as per HPI Hematologic/Lymphatic Hematologic/Lymphatic: Reports systems reviewed and no addt'l complaints, except as documented Allergic/Immunologic Allergic/Immunologic: Reports systems reviewed and no addt'l complaints, except as documented Physical Exam Const Constitutional Narrative: Lethargic but answers single word questions. Working very hard to breathe. HEENT normocephalic Eyes EOMs intact bilaterally Neck Neck Narrative: Thick neck unable to appreciate JVD. Cannot auscultate carotid bruits due to BiPAP. Chest inspection of chest normal Resp Resp Narrative: Patient is tachypneic using accessory muscles. Effort and Inspection: uses accessory muscles Auscultation: rhonchi throughout Cardio Cardio Narrative: Difficult to auscultate due to the respiratory noise. Rate: regular rate Rhythm: regular rhythm Heart Sounds: S1 normal, S2 normal and murmur systolic II/ blowing; Negative for click or gallop Extremity General Extremity: edema bilateral lower extremity Details: moderate Skin Skin Narrative: Hyperpigmentation of the lower extremities. Psych Psych Narrative: Patient lethargic but answers questions with one-word. Risk Stratification Risk Stratification Applicable: Yes Age >/= 65: Yes >/= 3 CAD Risk Factors (HTN, HLD, DM, family hx of CAD, or current smoker): Yes Aspirin Use in the Past 7 Days: No Severe Angina (>/= episodes in 24 hours): No EKG ST Changes >/= 0.5mm: Yes Positive Cardiac Marker: Yes PABLO Risk Stratification Score: 4 PABLO % Risk: 20% Risk Charges/Coding Visit Charges Inpatient E&M: 63903 Init Hosp L3 Objective Data Vital Signs: Vital Signs Temp Pulse Resp BP Pulse Ox O2 Del Method O2 Flow Rate 97.2 F L 99 27 H 142/73 H 97 Nasal Cannula 2 06/27/24 06:03 06/27/24 09:15 06/27/24 09:15 06/27/24 08:05 06/27/24 09:15 06/27/24 08:04 06/27/24 08:04 FiO2 30 06/27/24 09:15 Oxygen Flow Rate (L/min) 2 Oxygen Delivery Method Nasal Cannula Weight: 192 lb 10.944 oz Body Mass Index (BMI) 28.4 Intake & Output: Intake and Output for Last 24 Hours 06/25/24 06/26/24 06/27/24 23:59 23:59 23:59 Intake Total 4.85 / 4.85 Balance 4.85 / 4.85 Lab / Micro Data Attestation: I reviewed the patient's lab results. 06/27/24 05:05 06/27/24 05:05 Labs: Laboratory Results - last 24 hr 06/27/24 05:05: WBC 13.6 H, RBC 2.85 L, Hgb 8.2 L, Hct 25.7 L, MCV 90.2, MCH 28.8, MCHC 31.9 L, RDW Std Deviation 54.5 H, RDW Coeff of Hallie 16.4 H, Plt Count 290, MPV 10.6, Immature Gran % (Auto) 0.700, Neut % (Auto) 62.9, Lymph % (Auto) 22.5, [place] % (Auto) 4.4, Eos % (Auto) 8.6 H, Baso % (Auto) 0.9, Absolute Neuts (auto) 8.6 H, Absolute Lymphs (auto) 3.07, Nucleated RBC % 0, Sodium 137, Potassium 4.6, Chloride 110 H, Carbon Dioxide 8.6 L*, Anion Gap 18 H, BUN 70 H, Creatinine 9.20 H*, Estim Creat Clear Calc 8.76 L*, Est GFR (MDRD) Non-Af 6 L, B UN/Creatinine Ratio 7.6 L, Glucose 198 H, Lactic Acid 2.6 H*, Calcium 8.0, T roponin T High Sens 67 H*, [place] [address] H 06/27/24 05:55: Blood Type A POSITIVE, Antibody Screen NEGATIVE 06/27/24 07:20: Troponin T Hi Sens 2 Hr 218 H* ABG Data ABG results: ABG 06/27/24 06/27/24 05:20 09:28 Specimen Type ART ART Sample Site R Radial R Radial pH 7.02 L* 7.16 L* Bicarbonate Actual 9.5 L 10.5 L Total CO2 11 11 Base Excess -22 L -18 L O2 Saturation 99 93 L O2 % 70.0 30.0 ABG pCO2 37.2 29.2 L ABG pO2 214 H 82 Alberto Test Positive Positive O2 Delivery Device BiPAP BiPAP Vent Mode Not entered Not entered POC PEEP 10 Crit Call To/Read Back Yes Yes Blood Gas Notified Whom Xiomara minor Blood Gas Notified Time 05:22:20 09:30:01 Clinical Comments 25/12 14 70% Rhythm Strip Rhythm Strip: Sinus Rhythm Rate: 91 Ectopy: None Cardiology Labs/Tests 06/27/24 05:05: WBC 13.6 H, RBC 2.85 L, Hgb 8.2 L, Hct 25.7 L, MCV 90.2, MCH 28.8, MCHC 31.9 L, Plt Count 290, MPV 10.6, Immature Gran % (Auto) 0.700, Neut % (Auto) 62.9, Lymph % (Auto) 22.5, [place] % (Auto) 4.4, Eos % (Auto) 8.6 H, Baso % (Auto) 0.9, Absolute Neuts (auto) 8.6 H, Nucleated RBC % 0, Sodium 137, Potassium 4.6, Chloride 110 H, Carbon Dioxide 8.6 L*, Anion Gap 18 H, BUN 70 H, Creatinine 9.20 H*, Est GFR (MDRD) Non-Af 6 L, BUN/Creatinine Ratio 7.6 L, G lucose 198 H, Lactic Acid 2.6 H*, Calcium 8.0 06/27/24 05:20: pH 7.02 L*, Bicarbonate Actual 9.5 L, Base Excess -22 L, O2 Saturation 99, ABG pCO2 37.2, ABG pO2 214 H, Alberto Test Positive 06/27/24 09:28: pH 7.16 L*, Bicarbonate Actual 10.5 L, Base Excess -18 L, O2 Saturation 93 L, ABG pCO2 29.2 L, ABG pO2 82, Alberto Test Positive Rhythm: EKG: ECHO: Stress Test: Cardiac Cath: PCI: CT Surgery: Holter monitor: EPS: PPM: CXR: Chest CT Scan: Radiography Diagnostic Testing: Radiology Impression Chest X-Ray 06/27/24 05:03 IMPRESSION: 1. The cardiac silhouette is mildly enlarged. 2. Moderate interstitial pulmonary congestion. 3. Minimal bilateral pleural effusions. 4. Passive atelectatic airspace disease in the lower lobes. 5. Mild degenerative joint disease. Reading Location: [place] [id number] EKG Follow-up EKG: Attestation: I personally reviewed and interpreted this EKG as follows: (Normal sinus rhythm with nonspecific prominent ST segment depressions. This may be related to LVH.)
[2024-06-27] MEDS: Midazolam 2 MG/2 ML Syringe IV (09:46)
[2024-06-27] MEDS: Etomidate 20 MG/10 ML Vial IV ×2 (09:48→10:10)
[2024-06-27] MEDS: Propofol 10MG/Ml 1,000 MG/100 ML Bottle 5.2 MG CONT INF (09:57)
[2024-06-27] MEDS: fentaNYL drip 100 ML 5 MCG CONT INF (09:58)
--- NOTE | 2024-06-27 10:16 | RAD_ITS ---
EXAM: Chest portable. CLINICAL HISTORY: Shortness of breath. Endotracheal tube placement. COMPARISON: Comparison is made with prior study dated June 27 2024 done earlier in the day. TECHNIQUE: Portable chest radiograph. FINDINGS: An endotracheal tube has been placed. The tip is at 4 cm proximal the rayne. An orogastric tube is placed with the tip in the proximal portion of the body of the stomach. EKG electrodes are seen. A right- sided central venous catheter has been placed with the tip at the junction of the superior vena cava and right atrium. The patient is rotated. There is evidence of vascular congestion and CHF with bibasilar atelectasis. Cardiomegaly. RAD/CXR for Line Placement IMPRESSION: All the support lines are in good position. Mild cardiomegaly with vascular congestion and CHF and bibasilar atelectasis. Reading Location: [place]
--- NOTE | 2024-06-27 10:28 | PCM.OP.PRO2 ---
Procedures Hospitalists Procedures: [id number] Insert Emergency Airway Non-invasive Procedural Procedure Information Date of Procedure: 06/27/24 Description of procedure: Intubation Indication: Respiratory Failure Consent was obtained from: Patient The patient was placed in the appropriate sniffing position. Preoxygenated sedation via BIPAP was provided for a minimum of 3 minutes. The patient had continuous cardiac as well as pulse oximetry monitoring during the procedure. Procedure sedation was provided by the administration of 4mg of versed and 20 mg of etomidate. Direct laryngoscopy was then performed using a number 4 MAC blade, which revealed a grade 1 view. A 7.5 mm endotracheal tube was visualized advancing between the cords to the level of 24 cm at the lip. The stylette was then removed and discarded. Tube placement was confirmed by fogging in the tube along with equal and bilateral breath sounds. Colorimetric change was visualized on the CO2 meter. The cuff was then inflated and the tube secured using a commercially available device. A good pulse oximetry waveform was seen on the monitor throughout the procedure. A portable chest x-ray has been ordered to confirm appropriate placement. The patient tolerated the procedure well.
--- NOTE | 2024-06-27 11:04 | CASEMGMT ---
Addendum entered by Larissa Garg 06/27/24 12:05: Rosemary states that the talked to the family and that the pt qualified for HCAP for the hospital stay. Rosemary states the pt has been using [facility] [employer] for prescription coverage and that the pt applied for MCR recently (pt turned 64 in late April). Rosemary states that she applied the pt for RENATE during this time and that they can help with Rx coverage if he gets approved. Original Note: RN CM Assessment Pt is currently sedated and intubated and is unable to participate in the initial RN CM assessment. Pt family ( and Son) are in the waiting room and willing to help answer this RN CM questions for assessment. Care providers, pharmacy, and demographics verified. Admitting dx: Renal Failure LACE Strata: 2 PCP: Omar Trejo Specialists: Denies Preferred Pharmacy: [facility] Insurance: SP. Family states that they would like to speak with Rosemary (Pt financial coach). Rosemary notified. Prescription Benefit: None at this time LNOK: Caro Stroud (), Frank Stroud (Son) Living Arrangements: Pt lives with his in a 2 story home with one step to enter ADLs/IADLs: Pt states that the pt is independent at baseline Transportation: Pt and pt normally drive DME: Pt states that the pt has a BGM with sufficient supplies but deny all other DME uses at home. CM to follow for needs. HHC/SNF: Denies history Pt?s goal: TBD Plan: TBD. Pt was just recently intubated for RF. Per facilities engineer, pt may have a pneumothorax and may require chest tube placement. Follow for HD needs. Pt family declines further questions or needs at this time. Care Management to follow. Donovan Garg RN CM
--- NOTE | 2024-06-27 11:13 | PCM.OP.PRO2 ---
Procedures Hospitalists Procedures: [id number] Insert Non-tunnel CV Cath Non-invasive Procedural Procedure Information Date of Procedure: 06/27/24 Description of procedure: Temporary Hemodialysis Catheter Indication: Dialysis Consent was obtained from: Patient A time-out was completed verifying correct patient, procedure, site, positioning, and special equipment if applicable. The patient was placed in a dependent position appropriate for hemodialysis line placement based on the vein to be cannulated. The patient's right neck was prepped and draped in the sterile fashion. 1% Lidocaine was used and emphasized the surrounding skin area. A 16 cm cm catheter was introduced into the right internal jugular vein, following sequential dilations, using the Seldinger technique and under ultrasound guidance. The catheter was threaded smoothly over the guidewire and appropriate blood return was obtained. Each lumen of the catheter was evacuated of air and flushed with sterile saline. The catheter was then sutured in place to the skin and a sterile dressing applied. Chest x-ray to confirm appropriate positioning is pending. ULTRASOUND GUIDANCE STATEMENT (Vascular Access): I performed an ultrasound image acquisition and interpretation for needle placement during the procedure. The vessel was identified and was found to be free of thrombosis by compression technique. A safe point of entry was marked at the skin in an angle for axis was determined. The needle was guided by obtaining free-flowing fluid and by real-time visualization.
[2024-06-27] MEDS: 0.9% Normal Saline 1,000 ML IV.SOLN. 1000 ML OPERA.SITE (11:49)
[2024-06-27] MEDS: PureFlow B 2K Dialysis Soln 1 BAG 6 BAG PF (11:54)
--- NOTE | 2024-06-27 12:04 | CASEMGMT ---
Social Work Rosemary from [employer] saw family and started the Medicaid paperwork, as pt is listed as self pay. SW met w/pt's and son, offered support. SW provided additional resources to family, including prescription assistance programs, [employer], [facility] assist, [employer], and [facility] Card. SW continues to be available for resources and support to family. DEMAR Mo
[2024-06-27] MEDS: Heparin 10,000 UNITS/10 ML Vial IV (13:28)
[2024-06-27] MEDS: Propofol 10MG/Ml 1,000 MG/100 ML Bottle 10.5 MG CONT INF ×2 (14:07→23:57)
[2024-06-27 14:16] LABS: Allen Test Positive; Base Excess -10 mmol/L (-2 to +2); Bicarbonate 17.3 mmol/L (22-26); Blood Gas Specimen Type ART; Mode AC; O2 Delivery Device Adult Vent; PEEP 5; PO2 76 mmHG (75-100); RR 20; SITE R Radial; SO2 93 % (95-99); Total Carbon Dioxide 19 mmol/L; pCO2 38.9 mmHg (35-45); pH 7.26 (7.35-7.45)
[2024-06-27] MEDS: Heparin Injection (Vial) 5,000 UNIT/ML VIAL 5000 UNIT SC ×2 (14:24→21:30)
[2024-06-27] MEDS: Pantoprazole Sodium 40 MG in 0.9% Normal Saline (100mL MB+) 100 ML 330 MG IV (14:25)
--- NOTE | 2024-06-27 15:42 | CHAPLAIN ---
Type of Pastoral Visit _x__ Initial Visit ___ Follow-up Visit ___ On-call Visit ___ General Patient Visit ___ Spiritual Assessment ___ Family Conference ___ Bereavement ___ Rapid Response ___ Code Blue ___ Other (describe below) Pastoral Care Referral From ___ Patient _x__ Family ___ Nurse ___ Physician ___ City Collector ___ Mounting Machine Operator ___ Other (describe below) Sacrament/Intervention _x__ Active listening ___ Anointing ___ Restorationism ___ Bereavement ___ Communion ___ Gabriela exploration ___ _x__ Life review _x__ Prayer ___ Reconciliation ___ Sacrament of Sick _x__ Supportive presence ___ Wedding ___ Other (describe below) Pastoral Comments patient is intubated but the is at the bedside; offer of support to as she explains what happened earlier this morning and his admission to the hospital; spouse is able to explain the plan of treatment; spouse admits how scary this is and has been for her; she is asked about her support and what she has in place for her care in these days; pt was still hoping to work and had been looking for another job; pt is of the [employer] gabriela; prayer and presence were welcomed; a visit on Sunday by this telehealth director is planned
--- NOTE | 2024-06-27 15:50 | HP.PCM.HOS_ITS ---
HPI - General General Date of Admission: 06/27/24 HPI Narrative ELSIE VILLALPANDO, is a 64 M who presents to the hospital with increasing shortness of breath. In the ER he was found to be in acute hypoxic respiratory failure, when EMS arrived to his house he was not 70% on room air he does not see a primary care physician at baseline, approximately 2019 he was told by his PCP that he needs to see a major account representative however he lost his job so he never followed up, at that time there is concern for nephrotic syndrome. In the ER he was found to have a significantly elevated BNP, and his chest x-ray was concerning for flash pulmonary edema, he was given a dose of Lasix. He was found to also have significant renal failure as well as metabolic acidosis, with a bicarb of 8.6. He was given 2 amps of bicarb in the ER. He was also found to have elevated troponins he was not complaining of any significant chest pains or shortness of breath. This is likely related to his hypoxia. [facility] Medical History Tobacco use HTN (hypertension) HTN (hypertension) Hearing problem Back problem Seasonal allergies Home Medications ?Medication ?Instructions ?Recorded ?Last Taken ?Type blood sugar diagnostic (Accu-Chek #10 ea 07/09/19 Unkn own History Reika Plus test strips) blood-glucose meter (Accu-Chek #1 ea 07/09/19 Unknown History Erika Plus Meter) blood pressure monitor (Blood #1 ea 09/29/21 Unknown R x Pressure Kit) compr.stocking,knee,long,large #12 ea 09/29/21 Unknown Rx amlodipine 10 mg tablet 10 mg PO DAILY #30 tabs 02/07/04 Unknown Rx valsartan 320 mg tablet 320 mg PO DAILY #30 tabs 07/04 Unknown Rx Allergy/AdvReac Type Severity Reaction Status Date / Time ciprofloxacin (From Cipro) Allergy Hives Verified 06/27/24 05:05 ciprofloxacin HCl (From Allergy Hives Verified 06/27/24 05:05 Cipro) meperidine HCl (From Demerol) AdvReac Other Verified 06/27/24 05:05 Family History Other Hypertension Surgical History History of hernia repair Social History Smoking Status: Heavy Smoker (>10/day) Tobacco: How many years used: 20 second hand exposure: Yes alcohol intake: never substance use type: does not use what type of physical activity do you participate in: walking frequency: daily duration: 60-90 minutes/day ROS Constitutional Constitutional: Denies chills, fatigue, fever(s) or malaise Eyes Eyes: Denies blurry vision ENT HEENT: Denies headache(s) or nasal discharge Cardiovascular Cardiovascular: Denies chest pain, dyspnea on exertion or syncope Respiratory/Chest Respiratory/Chest: Reports shortness of breath at rest and shortness of breath with exertion; Denies cough Gastrointestinal Gastrointestinal: Denies constipation, diarrhea, nausea or vomiting Genitourinary Genitourinary: Denies dysuria Neurologic Neurologic: Denies focal weakness, numbness or tremor(s) Psychiatric Psychiatric: Denies anxiety or depression Vital Signs Vital Signs Vital Signs: 06/27/24 04:58 06/27/24 05:00 06/27/24 05:02 Temperature 97.2 F L 97.2 F L Temperature Source Oral Oral Pulse Rate 91 92 91 Respiratory Rate 33 H 34 H 30 H Respiratory Effort Respiratory Pattern Tachypnea Blood Pressure 166/67 H 166/67 H Blood Pressure Mean 100 100 Blood Pressure Source Blood Pressure Position Blood Pressure Location Pulse Ox 100 99 100 Oxygen Delivery Method Bi-pap Bi-pap Oxygen Flow Rate (L/min) Fraction of Inspired Oxygen (FIO2) 70 06/27/24 05:03 06/27/24 05:07 06/27/24 05:28 Temperature Temperature Source Pulse Rate 92 Respiratory Rate 21 H Respiratory Effort Short of Breath Labored Respiratory Pattern Tachypnea Blood Pressure 154/66 H Blood Pressure Mean 95 Blood Pressure Source Blood Pressure Position Blood Pressure Location Pulse Ox 96 Oxygen Delivery Method Bi-pap Bi-pap Bi-pap Oxygen Flow Rate (L/min) Fraction of Inspired Oxygen (FIO2) 06/27/24 05:30 06/27/24 05:54 06/27/24 06:00 Temperature Temperature Source Pulse Rate 90 89 90 Respiratory Rate 22 H 23 H 21 H Respiratory Effort Respiratory Pattern Blood Pressure 162/67 H 135/64 H Blood Pressure Mean 98 87 Blood Pressure Source Blood Pressure Position Blood Pressure Location Pulse Ox 96 95 96 Oxygen Delivery Method Bi-pap Bi-pap Bi-pap Oxygen Flow Rate (L/min) Fraction of Inspired Oxygen (FIO2) 06/27/24 06:03 06/27/24 06:28 06/27/24 06:30 Temperature 97.2 F L Temperature Source Pulse Rate 88 88 94 Respiratory Rate 21 H 24 H Respiratory Effort Respiratory Pattern Blood Pressure 135/64 H 142/69 H 142/69 H Blood Pressure Mean 87 93 Blood Pressure Source Blood Pressure Position Blood Pressure Location Pulse Ox 96 91 Oxygen Delivery Method Nasal Cannula Oxygen Flow Rate (L/min) 2 Fraction of Inspired Oxygen (FIO2) 06/27/24 06:30 06/27/24 06:52 06/27/24 06:58 Temperature Temperature Source Pulse Rate 85 87 Respiratory Rate 19 H 23 H Respiratory Effort Respiratory Pattern Blood Pressure 144/63 H 144/63 H Blood Pressure Mean 90 90 Blood Pressure Source Blood Pressure Position Blood Pressure Location Pulse Ox 93 95 94 Oxygen Delivery Method Nasal Cannula Nasal Cannula Nasal Cannula Oxygen Flow Rate (L/min) 2 2 2 Fraction of Inspired Oxygen (FIO2) 06/27/24 07:30 06/27/24 07:34 06/27/24 08:04 Temperature Temperature Source Pulse Rate 91 92 96 Respiratory Rate 20 H 21 H 22 H Respiratory Effort Respiratory Pattern Blood Pressure 132/81 H 151/79 H 142/73 H Blood Pressure Mean 98 103 96 Blood Pressure Source Blood Pressure Position Blood Pressure Location Pulse Ox 95 94 94 Oxygen Delivery Method Nasal Cannula Nasal Cannula Nasal Cannula Oxygen Flow Rate (L/min) 2 2 2 Fraction of Inspired Oxygen (FIO2) 06/27/24 08:05 06/27/24 09:00 06/27/24 09:15 Temperature Temperature Source Pulse Rate 99 Respiratory Rate 27 H Respiratory Effort Respiratory Pattern Blood Pressure 142/73 H 131/65 H Blood Pressure Mean 96 87 Blood Pressure Source Blood Pressure Position Blood Pressure Location Pulse Ox 97 Oxygen Delivery Method Oxygen Flow Rate (L/min) Fraction of Inspired Oxygen (FIO2) 30 06/27/24 10:00 06/27/24 10:05 06/27/24 11:00 Temperature Temperature Source Pulse Rate 99 61 Respiratory Rate 34 H 20 H Respiratory Effort Mechanically Ventilated Respiratory Pattern Tachypnea Blood Pressure 115/63 86/48 L Blood Pressure Mean 80 60 Blood Pressure Source Monitor Blood Pressure Position Semi-Fowlers Blood Pressure Location Right Arm Pulse Ox 90 95 Oxygen Delivery Method Mechanical Ventilator Oxygen Flow Rate (L/min) Fraction of Inspired Oxygen (FIO2) 50 50 06/27/24 11:32 06/27/24 11:43 06/27/24 11:58 Temperature Temperature Source Pulse Rate 61 60 58 L Respiratory Rate 20 H 20 H 20 H Respiratory Effort Respiratory Pattern Blood Pressure 84/62 L 92/54 L 98/58 L Blood Pressure Mean 69 66 71 Blood Pressure Source Monitor Monitor Monitor Blood Pressure Position Semi-Fowlers Semi-Fowlers Semi-Fowlers Blood Pressure Location Right Arm Right Arm Right Arm Pulse Ox 97 98 100 Oxygen Delivery Method Mechanical Ventilator Mechanical Ventilator Oxygen Flow Rate (L/min) Fraction of Inspired Oxygen (FIO2) 25 25 06/27/24 12:13 06/27/24 12:30 06/27/24 12:45 Temperature Temperature Source Pulse Rate 59 L 58 L 59 L Respiratory Rate 20 H 20 H 20 H Respiratory Effort Respiratory Pattern Blood Pressure 101/60 106/58 L 111/63 Blood Pressure Mean 73 74 79 Blood Pressure Source Monitor Monitor Monitor Blood Pressure Position Semi-Fowlers Semi-Fowlers Semi-Fowlers Blood Pressure Location Right Arm Right Arm Right Arm Pulse Ox 100 100 100 Oxygen Delivery Method Mechanical Ventilator Mechanical Ventilator Mechanical Ventilator Oxygen Flow Rate (L/min) Fraction of Inspired Oxygen (FIO2) 50 50 50 06/27/24 13:00 06/27/24 13:09 06/27/24 13:14 Temperature Temperature Source Pulse Rate 60 61 61 Respiratory Rate 20 H 20 H 20 H Respiratory Effort Respiratory Pattern Normal Blood Pressure 116/67 117/64 Blood Pressure Mean 83 81 Blood Pressure Source Monitor Monitor Blood Pressure Position Semi-Fowlers Semi-Fowlers Blood Pressure Location Right Arm Right Arm Pulse Ox 100 100 98 Oxygen Delivery Method Mechanical Ventilator Mechanical Ventilator Oxygen Flow Rate (L/min) Fraction of Inspired Oxygen (FIO2) 50 30 50 06/27/24 13:49 Temperature Temperature Source Pulse Rate 61 Respiratory Rate 16 Respiratory Effort Mechanically Ventilated Respiratory Pattern Blood Pressure 118/65 Blood Pressure Mean 82 Blood Pressure Source Monitor Blood Pressure Position Semi-Fowlers Blood Pressure Location Right Arm Pulse Ox 98 Oxygen Delivery Method Mechanical Ventilator Oxygen Flow Rate (L/min) Fraction of Inspired Oxygen (FIO2) 50 Weight Weight: 191 lb 9.307 oz Body Mass Index (BMI) 28.3 Physical Exam Narrative General: Alert, Oriented x3, Cooperative, moderate respiratory distress HEENT: Atraumatic, PERRLA, EOMI, Normocephalic Oral: Moist Mucosa Neck: Supple, No JVD Lungs: Diminished, Normal air movement, No rhonchi, No wheeze, rales, tachypneic Cardiovascular: Regular rate, Regular Rhythm, Normal S1, Normal S2, No murmurs Abdomen: Soft, Non Tender, Non-Distended, No Hepato-splenomegaly Extremities: Edema, Capillary Refill Less than 3 Seconds Skin: No rashes, No breakdown Musculoskeletal: No Tenderness to Palpation of Joints or Extremities Neurological: No focal neurological deficits, moves all extremities Psych/Mental Status: Flat Results Lab / Micro Data 06/27/24 05:05 06/27/24 05:05 Labs: Laboratory Results - last 24 hr 06/27/24 05:05: WBC 13.6 H, RBC 2.85 L, Hgb 8.2 L, Hct 25.7 L, MCV 90.2, MCH 28.8, MCHC 31.9 L, RDW Std Deviation 54.5 H, RDW Coeff of Hallie 16.4 H, Plt Count 290, MPV 10.6, Immature Gran % (Auto) 0.700, Neut % (Auto) 62.9, Lymph % (Auto) 22.5, [place] % (Auto) 4.4, Eos % (Auto) 8.6 H, Baso % (Auto) 0.9, Absolute Neuts (auto) 8.6 H, Absolute Lymphs (auto) 3.07, Nucleated RBC % 0, Sodium 137, Potassium 4.6, Chloride 110 H, Carbon Dioxide 8.6 L*, Anion Gap 18 H, BUN 70 H, Creatinine 9.20 H*, Estim Creat Clear Calc 8.76 L*, Est GFR (MDRD) Non-Af 6 L, B UN/Creatinine Ratio 7.6 L, Glucose 198 H, Lactic Acid 2.6 H*, Calcium 8.0, T roponin T High Sens 67 H*, [place] [address] H 06/27/24 05:55: Blood Type A POSITIVE, Antibody Screen NEGATIVE 06/27/24 07:20: Troponin T Hi Sens 2 Hr 218 H* ABG Data ABG results: ABG 06/27/24 06/27/24 06/27/24 05:20 09:28 14:13 Specimen Type ART ART ART Sample Site R Radial R Radial R Radial pH 7.02 L* 7.16 L* 7.26 L Bicarbonate Actual 9.5 L 10.5 L 17.3 L Total CO2 11 11 19 Base Excess -22 L -18 L -10 L O2 Saturation 99 93 L 93 L O2 % 70.0 30.0 30.0 ABG pCO2 37.2 29.2 L 38.9 ABG pO2 214 H 82 76 Alberto Test Positive Positive Positive Respiration Rate 20 O2 Delivery Device BiPAP BiPAP Adult Vent Vent Mode Not entered Not entered AC Tidal Volume 450.0 POC PEEP 10 5 Crit Call To/Read Back Yes Yes Blood Gas Notified Whom Xiomara trejo Blood Gas Notified Time 05:22:20 09:30:01 Clinical Comments 25/12 14 70% Rhythm Strip Rhythm Strip: Sinus Rhythm Rate: 91 Ectopy: None Imaging Radiology Impression Chest X-Ray 06/27/24 05:03 IMPRESSION: 1. The cardiac silhouette is mildly enlarged. 2. Moderate interstitial pulmonary congestion. 3. Minimal bilateral pleural effusions. 4. Passive atelectatic airspace disease in the lower lobes. 5. Mild degenerative joint disease. Reading Location: [place] [id number] Echocardiogram 06/27/24 08:53 Interpretation Summary The left ventricular ejection fraction is 35 %. Mild-Moderate (1-2+) eccentric mitral valve insufficiency. Normal left ventricle. Ordering Physician: Leonardo Trejo Referring Physician: Omar Trejo Performed By: Stephanie Watt, LAVONNE, RVT Renal Ultrasound 06/27/24 09:23 IMPRESSION: NORMAL RENAL ULTRASOUND. Reading Location: [id number] Chest X-Ray 06/27/24 10:16 IMPRESSION: All the support lines are in good position. Mild cardiomegaly with vascular congestion and CHF and bibasilar atelectasis. Reading Location: [id number] Assessment & Plan Assessment/Plan (1) Acute hypoxic respiratory failure: PLAN: Plan 1. Acute hypoxic respiratory failure secondary to flash pulmonary edema from acute systolic CHF exacerbation precipitated by untreated nephrotic syndrome with metabolic acidosis ? Will consult the fruit thinner as well as nephrology for dialysis ? Plan for tunneled catheter on Sunday ? Given his recurrent respiratory distress, he has been weaned down to 2 L nasal cannula but be placed back on BiPAP he was intubated ? Metabolic acidosis is due to his renal failure, was temporarily placed on a bicarb drip until he could have run of dialysis today ? He was given a dose of Lasix in the ER, will consult cardiology given his elevated troponins, this is likely due to demand ischemia from his significant hypoxia and volume overload ? Echocardiogram with an EF of 35% with apical hypokinesis, once he is more stable and extubated may need further cardiac evaluation with cardiac cath but to be determined whether to be done inpatient or as an outpatient ? pH on admission was 7.02 with a bicarb of 9.5, after intubation his pH was 7.16 with a bicarb of 10.5 and after dialysis his pH was 7.26 with a bicarb of 17.3 ? She does have a lactic acid is 2.6, he is not septic 2. Type 2 diabetes ? Will place him on every 4 sliding scale insulin ? Accu-Cheks every 4 ? Will monitor and make adjustments as necessary 3. Essential HTN ? Will hold his home blood pressure medications while he is on dialysis ? Will monitor make adjustments as necessary DVT: Heparin Charges/Coding Visit Charges Inpatient E&M: 33197 Init Hosp L3
[2024-06-27 17:12] LABS: International Normalized Ratio 1.2; Prothrombin Time (Protime)PT. 15.8 SECONDS (11.7-14.9)
[2024-06-27 17:13] LABS: Partial Thromboplast Time 26.9 Seconds (24.1-36.2)
[2024-06-27 17:41] LABS: CPK Total, Creatine Kinase 268 U/L (24-195); Triglycerides 112 mg/dL
[2024-06-27] MEDS: Dextrose 10%-Water 250 ML 999 ML IV (18:25)
[2024-06-27 18:38] LABS: Bedside Glucose 62 mg/dL (74-106)
[2024-06-27 18:44] LABS: Troponin T High Sens 4 HR 521 ng/L (<=22)
[2024-06-27] MEDS: fentaNYL drip 100 ML 10 MCG CONT INF (18:44)
[2024-06-27 19:08] LABS: Bedside Glucose 85 mg/dL (74-106)
[2024-06-27 20:12] LABS: Hemoglobin A1c < 4.2 % (<=5.6)
[2024-06-27 21:52] LABS: Mucous, Urine 0 SEEN /hpf (<or=2+); Squamous Epithelial Cells - UA 0 SEEN /hpf (0-5); White Blood Cells 0 SEEN /hpf (0-5)
[2024-06-27 22:32] LABS: Glucose, Dipstick Normal (Normal); Ketone-Dipstick Negative (Negative); Leukocyte Esterase-Dipstick Negative /ul (Negative); Nitrite-Dipstick Negative (Negative); Occult Blood-Urine 50 /ul (Negative); Protein-Dipstick 500 mg/dl (Negative); Specific Gravity, Urine 1.015 (1.002-1.030); Urine Bilirubin Dipstick Negative (Negative); Urine Urobilinogen Normal (Normal)
[2024-06-27 23:30] LABS: Color, Urine Straw (Yellow); Urine Clarity Clear (Clear)
[2024-06-27 23:44] LABS: Bedside Glucose 65 mg/dL (74-106)
[2024-06-27 23:44] LABS: Bedside Glucose 58 mg/dL (74-106)
[2024-06-27] MEDS: 0.9% Saline Lock 10 ML Syringe IV (23:57)
[2024-06-28] VITALS (54 sets, daily range): BP systolic 102–163; BP diastolic 49–89; PULSE 56–97; RESP 13–26; TEMP 37.1–38.8; O2SAT 87–100; BMI 27.5; BMI 26.9
[2024-06-28 00:02] LABS: Bacteria 3+ /hpf (None Seen); Red Blood Cells-Urine 5-10 SEEN /hpf (0-5)
[2024-06-28] MEDS: Dextrose 10%-Water 250 ML 999 ML IV ×2 (02:07→11:27)
[2024-06-28 02:25] LABS: Bedside Glucose 59 mg/dL (74-106)
[2024-06-28] MEDS: fentaNYL drip 100 ML 10 MCG CONT INF (04:48)
--- NOTE | 2024-06-28 05:05 | RAD_ITS ---
PROCEDURE: CHEST 1 VIEW (PORTABLE) 06/28/2024 REASON FOR EXAM: RESPIRATORY FAILURE TECHNIQUE: Frontal view of the chest. COMPARISON: Chest radiograph 1 day prior. FINDINGS: Hardware: Stable right IJ central venous catheter with tip overlying the SVC. Endotracheal tube in place terminating approximately 5 cm above the level of the rayne. Gastric tube with side hole and tip coursing below the level of the diaphragm, terminating outside the field of view. Heart: Heart size is moderately enlarged with unchanged rightward mediastinal shift. Lungs: The right heart border obscures the right costophrenic angle. Probable small right pleural effusion. Bibasilar atelectasis. No obvious pneumothorax. Bones: Degenerative changes are identified within the thoracic spine. RAD/Chest 1 View (Portable) IMPRESSION: Cardiomegaly with persistent rightward mediastinal shift. Probable small right pleural effusion. Support devices as described. Reading Location: [id number]
[2024-06-28 05:30] LABS: Base Excess -11 mmol/L (-2 to +2); Bicarbonate 15.3 mmol/L (22-26); Blood Gas Specimen Type ART; Mode AC; O2 Delivery Device Adult Vent; PEEP 5; PO2 73 mmHG (75-100); RR 20; SITE L Radial; SO2 94 % (95-99); Total Carbon Dioxide 16 mmol/L; pCO2 28.5 mmHg (35-45); pH 7.34 (7.35-7.45)
[2024-06-28 06:12] LABS: Bedside Glucose 54 mg/dL (74-106)
[2024-06-28 06:14] LABS: Absolute Lymphocyte Count 0.93 X10^3/uL (0.83-4.51); Absolute Neutrophil Count 5.6 X10^3/uL (2.0-7.7); Basophil# 0.05 X10^3/uL; Basophil% 0.7 % (0-1); Eosinophil# 0.51 X10^3/uL; Eosinophils% 6.6 % (0-5); Hematocrit 18.5 % (40-54); Lymphocyte # 0.93 X10^3/ul (0.83-4.51); Lymphocyte % 12.1 % (19-41); Mean Corp Hgb Conc 32.4 g/dL (32-36); Mean Corpuscular Hgb 28.6 pg (27.0-32.0); Mean Corpuscular Volume 88.1 fL (80-94); Mean Platelet Vol. 11.5 fl (6.2-12.0); Monocyte# 0.51 X10^3/uL; Monocyte% 6.6 % (0-10); NRBC Flagged by Analyzer 0 % (0-5); Neutrophil # 5.64 X10^3/uL (2.7-7.7); Neutrophil % 73.6 % (47-70); Platelet Count 136 K/mm3 (150-450); RBC Distribution Width CV 16.5 % (11.6-14.6); RBC Distribution Width SD 53.3 fl (35.1-43.9); White Blood Count 7.7 K/mm3 (4.4-11.0)
[2024-06-28 06:18] LABS: Differential Indicated SCAN CRITERIA MET
--- NOTE | 2024-06-28 06:47 | PCM.HOSP.N ---
Hospitalist Note Hemoglobin dropped from 8.2 yesterday to 6.0 this morning. Will transfuse 1 unit of blood at this time.
[2024-06-28 06:49] LABS: Anion Gap 15 (5-15); BUN 62 mg/dL (4-19); BUN/Creat Ratio 8.2 RATIO (10-20); Calcium,Total 7.5 mg/dL (7.6-11.0); Carbon Dioxide 15.5 mmol/L (21.0-32.0); Chloride 109 mmol/L (98-108); Creatinine, Serum 7.64 mg/dL (0.70-1.20); Differential Comment SCANNED; EST Glomerular Filtration Rate 7 (>60); Estimated Creatinine Clearance 9.64 ml/min (50-250); Glucose 65 mg/dL (70-99); Potassium 4.4 mmol/L (3.3-5.1); Sodium Level 139 mmol/L (133-145)
[2024-06-28 08:26] LABS: Ferritin 133 ng/mL (37-417); Iron 22 ug/dL (65-175); Iron Binding Capacity,Unsat 161 ug/dL (228-428)
[2024-06-28] MEDS: Propofol 10MG/Ml 1,000 MG/100 ML Bottle 10.5 MG CONT INF ×2 (08:35→17:41)
--- NOTE | 2024-06-28 08:45 | PCMCONS.TICU ---
HPI Consult Data Date of Consult: 06/28/24 HPI Narrative HPI Narrative: ELSIE VILLALPANDO is a 64yo with depressed EF 35% presenting in acute hypoxemic RF, failed trial of NIPPV 2/2 orthopnea and hypoxemic respiratory failure. Intubated, getting HD, which is new for him. CXR showing dextrotation, pulmonary edema, effusion and atelectasis. 06/28 - today, patient getting HD first shift and transfusion 2/2 anemia, presumed related to hypervolemia. Fi25% on vent, but SpO2 89-91%. Bucking vent 2/2 dyssynchrony and higher inflow than vent delivering. sedated on propofol and fentanyl. ROS could not be obtain 2/2 intubation and sedation. [facility] Medical History Tobacco use HTN (hypertension) HTN (hypertension) Hearing problem Back problem Seasonal allergies Home Medications ?Medication ?Instructions ?Recorded ?Last Taken ?Type blood sugar diagnostic (Accu-Chek #10 ea 07/09/19 Unknown History Erika Plus test strips) blood-glucose meter (Accu-Chek #1 ea 07/09/19 Unknown History Erika Plus Meter) blood pressure monitor (Blood #1 ea 09/29/21 Unknown Rx Pressure Kit) compr.stocking,knee,long,large #12 ea 09/29/21 Unknown Rx amlodipine 10 mg tablet 10 mg PO DAILY #30 tabs 04/15/24 Unknown Rx valsartan 320 mg tablet 320 mg PO DAILY #30 tabs 04/15/24 Unknown Rx Allergy/AdvReac Type Severity Reaction Status Date / Time ciprofloxacin (From Cipro) Allergy Hives Verified 06/27/24 05:05 ciprofloxacin HCl (From Allergy Hives Verified 06/27/24 05:05 Cipro) meperidine HCl (From Demerol) AdvReac Other Verified 06/27/24 05:05 Family History Other Hypertension Surgical History History of hernia repair Social History Smoking Status: Heavy Smoker (>10/day) Tobacco: How many years used: 20 second hand exposure: Yes alcohol intake: never substance use type: does not use what type of physical activity do you participate in: walking frequency: daily duration: 60-90 minutes/day ROS Review of Systems ROS Unobtainable: due to endotracheal tube; Denies due to mental status Objective Data Objective Data Vital Signs: Vital Signs Last response Temperature 37.9 C H 06/28/24 08:40 Temperature Source Core 06/28/24 08:40 Pulse Rate 89 06/28/24 08:40 Respiratory Rate 17 06/28/24 08:40 Respiratory Effort Normal, Non-Labored 06/28/24 08:00 Respiratory Depth Normal 06/28/24 04:00 Respiratory Pattern Normal 06/28/24 07:40 Blood Pressure 136/72 H 06/28/24 08:40 Blood Pressure Mean 93 06/28/24 08:40 Blood Pressure Source Monitor 06/28/24 08:40 Blood Pressure Position Semi-Fowlers 06/28/24 08:40 Blood Pressure Location Right Arm 06/28/24 08:40 Pulse Ox 87 06/28/24 08:40 Oxygen Delivery Method Mechanical Ventilator 06/28/24 08:40 Oxygen Flow Rate (L/min) 40 06/27/24 09:45 Fraction of Inspired Oxygen (FIO2) 06/28/24 07:40 I&O: I&O Last 24 Hours 06/27/24 06/27/24 06/28/24 11:59 23:59 11:59 Intake Total 250.00 / 846.61 586.08 / 846.61 403.36 / 403.36 Output Total 550 / 1200 825 / 825 Balance 250.00 / -353.39 36.08 / -353.39 -421.64 / -421.64 I&O: Total Stay 06/27/24 04:57 thru 06/28/24 08:40 Intake Total 1239.44 Output Total 1375 Balance -135.56 Current Meds Ordered / Administered: Current meds ordered / Administered Generic Name Dose Route Start Last Admin Trade Name Freq PRN Reason Stop Dose Admin Glucagon 1 mg 06/27/24 16:17 Glucagon 1 Mg/Ml Syringe IM X1 PRN Hypoglycemia Protocol Hemodialysis Solution 6 bag 06/28/24 07:00 Pureflow B 2k Dialysis Soln 1 Bag PF 06/28/24 23:50 UD INOCENTE Protocol Heparin Sodium (Porcine) 5,000 unit 06/27/24 10:00 06/27/24 21:30 Heparin Injection (Vial) 5,000 Unit/Ml Vial SC 5,000 unit Q12 INOCENTE Administration Heparin Sodium (Porcine) 1,000 - 3,000 units 06/28/24 07:00 Heparin 10,000 Units/10 Ml Vial IV 06/28/24 23:50 X1 PRN HD catheter closing Propofol 1,000 mg in 100 mls @ 5.244 mls/hr 06/27/24 09:35 06/28/24 07:00 Diprivan CONT INF 20 mcg/kg/min .Q12H INOCENTE 10.5 mls/hr Titration Protocol 10 MCG/KG/MIN Fentanyl 100 mls @ 5 mls/hr 06/27/24 09:35 06/28/24 07:00 CONT INF 100 mcg/hr UD INOCENTE 10 mls/hr Titration Protocol 50 MCG/HR Pantoprazole Sodium 40 mg/ 110 mls @ 330 mls/hr 06/27/24 10:00 06/27/24 16:28 Sodium Chloride IV Infused Q24 INOCENTE Infusion Dexmedetomidine HCl 400 mcg/ 100 mls @ 10.925 mls/hr 06/27/24 12:15 06/28/24 05:26 Sodium Chloride CONT INF Not Given .Q9H10M INOCENTE Protocol 0.5 MCG/KG/HR Dextrose 250 mls @ 0 mls/hr 06/27/24 16:17 06/28/24 06:19 Dextrose 10%-Water IV Infused .Q0M PRN Infusion HYPOGLYCEMIA Protocol As Directed Insulin Human Lispro 0 unit 06/27/24 18:00 06/28/24 06:10 Insulin Lispro 100 Unit/Ml Insuln.Pen SC Not Given Q4 INOCENTE Protocol Sodium Chloride 10 - 40 ml 06/27/24 13:18 06/27/24 23:57 0.9% Saline Lock 10 Ml Syringe IV 20 ml UD PRN Administration SALINE FLUSH Sodium Chloride 1,000 ml 06/28/24 07:00 0.9% Normal Saline 1,000 Ml Iv.Soln. OPERA.SITE 06/28/24 23:50 X1 [facility] Physical Exam Const no apparent distress General Appearance: patient mechanically ventilated HEENT normocephalic, head/scalp atraumatic and moist oral mucous membranes General Ear: hearing grossly impaired Eyes PERRL, EOMs intact bilaterally, conjunctivae normal and no scleral icterus Neck full ROM Chest inspection of chest normal Resp normal respiratory effort and no use of accessory muscles Auscultation: diminished lung sounds Cardio regular rate and regular rhythm GI normal to inspection, nondistended, normoactive bowel sounds no CVA tenderness Extremity no clubbing, cyanosis or edema Neuro Sensorium / Orientation: sedated on vent Psych cooperative Lab / Micro Data Attestation: I reviewed the patient's lab results. 06/28/24 06:00 06/28/24 06:00 Labs: Laboratory Results - last 24 hr 06/27/24 05:55: Crossmatch See Detail 06/27/24 16:45: PT 15.8 H, INR 1.2, APTT 26.9, Total Creatine Kinase 268 H, Troponin T Hi Sens 4Hr 521 H*, Triglycerides 112 06/27/24 16:49: Hemoglobin A1c < 4.2 06/27/24 18:20: POC Glucose 62 L 06/27/24 18:44: POC Glucose 85 06/27/24 21:28: POC Glucose 58 L 06/27/24 21:45: Urine Color Straw, Urine Clarity Clear, Urine pH 6.0, Ur Specific [place] 1.015, Urine Protein 500 H, Urine Glucose (UA) Normal, Urine Ketones Negative, Urine Occult Blood 50 H, Urine Nitrite Negative, Urine Bilirubin Negative, Urine Urobilinogen Normal, Ur Leukocyte Esterase Negative, Urine RBC 5-10 SEEN, Urine WBC 0 SEEN, Ur Squamous Epith Cells 0 SEEN, Urine Bacteria 3+, Urine Mucus 0 SEEN 06/27/24 23:27: POC Glucose 65 L 06/28/24 02:03: POC Glucose 59 L 06/28/24 05:54: POC Glucose 54 L 06/28/24 06:00: WBC 7.7, RBC 2.10 L, Hgb 6.0 L*, Hct 18.5 L, MCV 88.1, MCH 28.6, MCHC 32.4, RDW Std Deviation 53.3 H, RDW Coeff of Hallie 16.5 H, Plt Count 136 L, MPV 11.5, Immature Gran % (Auto) 0.400, Neut % (Auto) 73.6 H, Lymph % (Auto) 12.1 L, [place] % (Auto) 6.6, Eos % (Auto) 6.6 H, Baso % (Auto) 0.7, Absolute Neuts (auto) 5.6, Absolute Lymphs (auto) 0.93, Nucleated RBC % 0, Differential Comment SCANNED, Sodium 139, Potassium 4.4, Chloride 109 H, Carbon Dioxide 15.5 L, Anion Gap 15, BUN 62 H, Creatinine 7.64 H*, Estim Creat Clear Calc 9.64 L*, Est GFR (MDRD) Non-Af 7 L, BUN/Creatinine Ratio 8.2 L, Glucose 65 L, Calcium 7.5 L 06/28/24 06:12: Iron 22 L, Iron Saturation 12.0, Unsaturated IBC 161 L, Ferritin 133 ABG Data ABG results: ABG 06/27/24 06/27/24 06/28/24 09:28 14:13 05:26 Specimen Type ART ART ART Sample Site R Radial R Radial L Radial pH 7.16 L* 7.26 L 7.34 L Bicarbonate Actual 10.5 L 17.3 L 15.3 L Total CO2 11 19 16 Base Excess -18 L -10 L -11 L O2 Saturation 93 L 93 L 94 L O2 % 30.0 30.0 25.0 ABG pCO2 29.2 L 38.9 28.5 L ABG pO2 82 76 73 L Alberto Test Positive Positive N/A Respiration Rate 20 20 O2 Delivery Device BiPAP Adult Vent Adult Vent Vent Mode Not entered AC AC Tidal Volume 450.0 450.0 POC PEEP 10 5 5 Crit Call To/Read Back Yes Blood Gas Notified Whom mily Blood Gas Notified Time 09:30:01 Rhythm Strip Rhythm Strip: Sinus Rhythm Rate: 91 Ectopy: None Imaging Radiology Impression Echocardiogram 06/27/24 08:53 Interpretation Summary The left ventricular ejection fraction is 35 %. Mild-Moderate (1-2+) eccentric mitral valve insufficiency. Normal left ventricle. Ordering Physician: Leonardo Trejo Referring Physician: Omar Trejo Performed By: Stephanie Watt, RDCS, RVT Renal Ultrasound 06/27/24 09:23 IMPRESSION: NORMAL RENAL ULTRASOUND. Reading Location: [id number] Chest X-Ray 06/27/24 10:16 IMPRESSION: All the support lines are in good position. Mild cardiomegaly with vascular congestion and CHF and bibasilar atelectasis. Reading Location: [facility] =- CXR from 06/28 personally reviewed Heart is dextrorotated Severe edema on the left effusion on the right atelectasis in retrocardiac space Assessment and Plan . Assessment and plan: ICU Problem List: acute hypoxemic respiratory failure mechanical ventilation acute congestive heart failure exacerbation, syostolic EF 35% acute renal failure atelectasis effusion, pleural Plan: HD today SAT and SBT after HD, DC Fentanyl now If extubated, will extubated to NIPPV regardless 2/2 low EF Bernardo Rodríguez MD [facility] Critical Care Time: 60 min The entirety of this encounter was done via Telemedicine
[2024-06-28] MEDS: PureFlow B 2K Dialysis Soln 1 BAG 6 BAG PF (08:48)
[2024-06-28] MEDS: 0.9% Normal Saline 1,000 ML IV.SOLN. 1000 ML OPERA.SITE (08:49)
[2024-06-28] MEDS: Heparin 10,000 UNITS/10 ML Vial IV (08:49)
--- NOTE | 2024-06-28 08:53 | PN.HOSP_ITS ---
Subjective Subjective Intubated and sedated. Hemoglobin down to 6.0 today Objective Data Objective Data Vital Signs: Vital Signs Temp Pulse Resp BP Pulse Ox O2 Del Method O2 Flow Rate 100.2 F H 85 17 148/65 H 87 Mechanical Ventilator 40 06/28/24 08:40 06/28/24 08:45 06/28/24 08:40 06/28/24 08:45 06/28/24 08:40 06/28/24 08:40 06/27/24 09:45 FiO2 25 06/28/24 07:40 Oxygen Flow Rate (L/min) 40 Oxygen Delivery Method Mechanical Ventilator Weight: 185 lb 10.067 oz Body Mass Index (BMI) 27.5 Intake & Output: Intake and Output for Last 24 Hours 06/27/24 06/28/24 06/29/24 03:59 03:59 03:59 Intake Total 1041.31 / 1061.81 198.13 / 198.13 Output Total 1200 / 1200 175 / 175 Balance -158.69 / -138.19 23.13 / 23.13 Lab / Micro Data 06/28/24 06:00 06/28/24 06:00 Labs: Laboratory Results - last 24 hr 06/27/24 05:55: Crossmatch See Detail 06/27/24 16:45: PT 15.8 H, INR 1.2, APTT 26.9, Total Creatine Kinase 268 H, T roponin T Hi Sens 4Hr 521 H*, Triglycerides 112 06/27/24 16:49: Hemoglobin A1c < 4.2 06/27/24 18:20: POC Glucose 62 L 06/27/24 18:44: POC Glucose 85 06/27/24 21:28: POC Glucose 58 L 06/27/24 21:45: Urine Color Straw, Urine Clarity Clear, Urine pH 6.0, Ur Specific [place] 1.015, Urine Protein 500 H, Urine Glucose (UA) Normal, Urine Ketones Negative, Urine Occult Blood 50 H, Urine Nitrite Negative, Urine Bilirubin Negative, Urine Urobilinogen Normal, Ur Leukocyte Esterase Negative, Urine RBC 5-10 SEEN, Urine WBC 0 SEEN, Ur Squamous Epith Cells 0 SEEN, Urine Bacteria 3+, Urine Mucus 0 SEEN 06/27/24 23:27: POC Glucose 65 L 06/28/24 02:03: POC Glucose 59 L 06/28/24 05:54: POC Glucose 54 L 06/28/24 06:00: WBC 7.7, RBC 2.10 L, Hgb 6.0 L*, Hct 18.5 L, MCV 88.1, MCH 28.6, MCHC 32.4, RDW Std Deviation 53.3 H, RDW Coeff of Hallie 16.5 H, Plt Count 136 L, MPV 11.5, Immature Gran % (Auto) 0.400, Neut % (Auto) 73.6 H, Lymph % (Auto) 12.1 L, [place] % (Auto) 6.6, Eos % (Auto) 6.6 H, Baso % (Auto) 0.7, Absolute Neuts (auto) 5.6, Absolute Lymphs (auto) 0.93, Nucleated RBC % 0, Differential Comment SCANNED, Sodium 139, Potassium 4.4, Chloride 109 H, Carbon Dioxide 15.5 L, Anion Gap 15, BUN 62 H, Creatinine 7.64 H*, Estim Creat Clear Calc 9.64 L*, Est GFR (MDRD) Non-Af 7 L, BUN/Creatinine Ratio 8.2 L, Glucose 65 L, Calcium 7.5 L 06/28/24 06:12: Iron 22 L, Iron Saturation 12.0, Unsaturated IBC 161 L, Ferritin 133 ABG Data ABG results: ABG 06/27/24 06/27/24 06/28/24 09:28 14:13 05:26 Specimen Type ART ART ART Sample Site R Radial R Radial L Radial pH 7.16 L* 7.26 L 7.34 L Bicarbonate Actual 10.5 L 17.3 L 15.3 L Total CO2 11 19 16 Base Excess -18 L -10 L -11 L O2 Saturation 93 L 93 L 94 L O2 % 30.0 30.0 25.0 ABG pCO2 29.2 L 38.9 28.5 L ABG pO2 82 76 73 L Alberto Test Positive Positive N/A Respiration Rate 20 20 O2 Delivery Device BiPAP Adult Vent Adult Vent Vent Mode Not entered AC AC Tidal Volume 450.0 450.0 POC PEEP 10 5 5 Crit Call To/Read Back Yes Blood Gas Notified Whom brown Blood Gas Notified Time 09:30:01 Radiography Diagnostic Testing: Radiology Impression Echocardiogram 06/27/24 08:53 Interpretation Summary The left ventricular ejection fraction is 35 %. Mild-Moderate (1-2+) eccentric mitral valve insufficiency. Normal left ventricle. Ordering Physician: Leonardo Trejo Referring Physician: Omar Trejo Performed By: Stephanie Watt, LAVONNE, RVT Renal Ultrasound 06/27/24 09:23 IMPRESSION: NORMAL RENAL ULTRASOUND. Reading Location: [id number] Chest X-Ray 06/27/24 10:16 IMPRESSION: All the support lines are in good position. Mild cardiomegaly with vascular congestion and CHF and bibasilar atelectasis. Reading Location: [id number] Rhythm Strip Rhythm Strip: Sinus Rhythm Rate: 91 Ectopy: None Physical Exam Const General Appearance: intubated and patient mechanically ventilated HEENT normocephalic Eyes PERRL and conjunctivae normal Neck supple and no JVD Resp normal respiratory effort, no retractions and no use of accessory muscles Auscultation: Negative for crackles, rales, rhonchi or wheezes Cardio regular rate, regular rhythm, S1 normal heart sound, S2 normal heart sound and no murmurs GI soft to palpation and non-distended; Negative for hepatosplenomegaly Extremity Extremity Narrative: 2+ pitting edema Skin no rashes or lesions noted Neuro Sensorium / Orientation: sedated on vent Psych Appearance: intubated Assessment & Plan Assessment/Plan (1) Acute hypoxic respiratory failure: PLAN: Plan 1. Acute hypoxic respiratory failure secondary to flash pulmonary edema from acute systolic CHF exacerbation precipitated by untreated nephrotic syndrome with metabolic acidosis/anemia ? Will consult the precision structural metal fitter as well as nephrology for dialysis ? Plan for tunneled catheter on Sunday ? Given his recurrent respiratory distress, he has been weaned down to 2 L nasal cannula but be placed back on BiPAP he was intubated ? Metabolic acidosis is due to his renal failure, was temporarily placed on a bicarb drip until he could have run of dialysis today ? He was given a dose of Lasix in the ER, will consult cardiology given his elevated troponins, this is likely due to demand ischemia from his significant hypoxia and volume overload ? Echocardiogram with an EF of 35% with apical hypokinesis, once he is more stable and extubated may need further cardiac evaluation with cardiac cath but to be determined whether to be done inpatient or as an outpatient ? pH on admission was 7.02 with a bicarb of 9.5, after intubation his pH was 7.16 with a bicarb of 10.5 and after dialysis his pH was 7.26 with a bicarb of 17.3 ? Unclear as to the etiology of his anemia, will transfuse 2 units ? Also start tube feeds today to help control his blood sugars better and to limit IV fluids given his heart failure 2. Type 2 diabetes ? Will place him on every 4 sliding scale insulin ? Accu-Cheks every 4 ? Will monitor and make adjustments as necessary 3. Essential HTN ? Will hold his home blood pressure medications while he is on dialysis ? Will monitor make adjustments as necessary DVT: Heparin Charges/Coding Visit Charges Inpatient E&M: 70999 Subs Hosp L2
[2024-06-28] MEDS: 0.9% Saline Lock 10 ML Syringe IV (10:48)
--- NOTE | 2024-06-28 11:14 | PCM.PN.CARD ---
Subjective Subjective Patient is currently intubated but alert and following commands. He is currently undergoing dialysis. Since yesterday he is -2.165 L. His hemoglobin did drop down to 6 and he received a unit of packed red cells during dialysis today. There is no obvious bleeding site is NG tube is clear he has had no bowel movements there is no obvious bleeding with the line placements. Patient's echocardiogram showed an EF of 35% with global systolic dysfunction. The RV was normal both atria are of normal size and there was 1-2+ mitral regurgitation. The patient's and son were in attendance I did discuss the situation with them and answered their questions. Objective Data Vital Signs: Vital Signs Temp Pulse Resp BP Pulse Ox O2 Del Method O2 Flow Rate 99.7 F H 97 15 147/74 H 93 Mechanical Ventilator 40 06/28/24 11:01 06/28/24 11:01 06/28/24 11:01 06/28/24 11:01 06/28/24 11:01 06/28/24 11:01 06/27/24 09:45 FiO2 06/28/24 10:33 Oxygen Flow Rate (L/min) 40 Oxygen Delivery Method Mechanical Ventilator Weight: 181 lb 14.102 oz Body Mass Index (BMI) 26.9 Intake & Output: Intake and Output for Last 24 Hours 06/26/24 06/27/24 06/28/24 23:59 23:59 23:59 Intake Total 836.08 / 846.61 443.49 / 443.49 Output Total 550 / 1200 2645 / 2645 Balance 286.08 / -353.39 -2201.51 / -2201.51 Lab / Micro Data Attestation: I reviewed the patient's lab results. 06/28/24 06:00 06/28/24 06:00 Labs: Laboratory Results - last 24 hr 06/27/24 05:55: Crossmatch See Detail 06/27/24 16:45: PT 15.8 H, INR 1.2, APTT 26.9, Total Creatine Kinase 268 H, Troponin T Hi Sens 4Hr 521 H*, Triglycerides 112 06/27/24 16:49: Hemoglobin A1c < 4.2 06/27/24 18:20: POC Glucose 62 L 06/27/24 18:44: POC Glucose 85 06/27/24 21:28: POC Glucose 58 L 06/27/24 21:45: Urine Color Straw, Urine Clarity Clear, Urine pH 6.0, Ur Specific [place] 1.015, Urine Protein 500 H, Urine Glucose (UA) Normal, Urine Ketones Negative, Urine Occult Blood 50 H, Urine Nitrite Negative, Urine Bilirubin Negative, Urine Urobilinogen Normal, Ur Leukocyte Esterase Negative, Urine RBC 5-10 SEEN, Urine WBC 0 SEEN, Ur Squamous Epith Cells 0 SEEN, Urine Bacteria 3+, Urine Mucus 0 SEEN 06/27/24 23:27: POC Glucose 65 L 06/28/24 02:03: POC Glucose 59 L 06/28/24 05:54: POC Glucose 54 L 06/28/24 06:00: WBC 7.7, RBC 2.10 L, Hgb 6.0 L*, Hct 18.5 L, MCV 88.1, MCH 28.6, MCHC 32.4, RDW Std Deviation 53.3 H, RDW Coeff of Hallie 16.5 H, Plt Count 136 L, MPV 11.5, Immature Gran % (Auto) 0.400, Neut % (Auto) 73.6 H, Lymph % (Auto) 12.1 L, [place] % (Auto) 6.6, Eos % (Auto) 6.6 H, Baso % (Auto) 0.7, Absolute Neuts (auto) 5.6, Absolute Lymphs (auto) 0.93, Nucleated RBC % 0, Differential Comment SCANNED, Sodium 139, Potassium 4.4, Chloride 109 H, Carbon Dioxide 15.5 L, Anion Gap 15, BUN 62 H, Creatinine 7.64 H*, Estim Creat Clear Calc 9.64 L*, Est GFR (MDRD) Non-Af 7 L, BUN/Creatinine Ratio 8.2 L, Glucose 65 L, Calcium 7.5 L 06/28/24 06:12: Iron 22 L, TIBC TNP, Iron Saturation 12.0, Unsaturated IBC 161 L, Ferritin 133 Micro: Microbiology 06/27/24 14:15 Sputum, Induced/Lukens Respiratory Culture - Preliminary Appears to be normal respiratory michael. Further studies to follow. ABG Data ABG results: ABG 06/27/24 06/28/24 14:13 05:26 Specimen Type ART ART Sample Site R Radial L Radial pH 7.26 L 7.34 L Bicarbonate Actual 17.3 L 15.3 L Total CO2 19 16 Base Excess -10 L -11 L O2 Saturation 93 L 94 L O2 % 30.0 25.0 ABG pCO2 38.9 28.5 L ABG pO2 76 73 L Alberto Test Positive N/A Respiration Rate 20 20 O2 Delivery Device Adult Vent Adult Vent Vent Mode AC AC Tidal Volume 450.0 450.0 POC PEEP 5 5 Rhythm Strip Rhythm Strip: Sinus Rhythm Rate: 90 Ectopy: None Cardiology Labs/Tests 06/27/24 14:13: pH 7.26 L, Bicarbonate Actual 17.3 L, Base Excess -10 L, O2 Saturation 93 L, ABG pCO2 38.9, ABG pO2 76, Alberto Test Positive 06/27/24 16:45: PT 15.8 H, INR 1.2, APTT 26.9, Triglycerides 112 06/27/24 16:49: Hemoglobin A1c < 4.2 06/27/24 21:45: Urine Color Straw, Urine Clarity Clear, Urine pH 6.0, Ur Specific [place] 1.015, Urine Protein 500 H, Urine Glucose (UA) Normal, Urine Ketones Negative, Urine Occult Blood 50 H, Urine Nitrite Negative, Urine Bilirubin Negative, Urine Urobilinogen Normal, Ur Leukocyte Esterase Negative, Urine RBC 5-10 SEEN, Urine WBC 0 SEEN 06/28/24 05:26: pH 7.34 L, Bicarbonate Actual 15.3 L, Base Excess -11 L, O2 Saturation 94 L, ABG pCO2 28.5 L, ABG pO2 73 L, Alberto Test N/A 06/28/24 06:00: WBC 7.7, RBC 2.10 L, Hgb 6.0 L*, Hct 18.5 L, MCV 88.1, MCH 28.6, MCHC 32.4, Plt Count 136 L, MPV 11.5, Immature Gran % (Auto) 0.400, Neut % (Auto) 73.6 H, Lymph % (Auto) 12.1 L, [place] % (Auto) 6.6, Eos % (Auto) 6.6 H, Baso % (Auto) 0.7, Absolute Neuts (auto) 5.6, Nucleated RBC % 0, Sodium 139, Potassium 4.4, Chloride 109 H, Carbon Dioxide 15.5 L, Anion Gap 15, BUN 62 H, Creatinine 7.64 H*, Est GFR (MDRD) Non-Af 7 L, BUN/Creatinine Ratio 8.2 L, Glucose 65 L, Calcium 7.5 L 06/28/24 06:12: Iron 22 L, TIBC TNP, Iron Saturation 12.0, Ferritin 133 Rhythm: EKG: ECHO: Stress Test: Cardiac Cath: PCI: CT Surgery: Holter monitor: EPS: PPM: CXR: Chest CT Scan: Radiography Diagnostic Testing: Radiology Impression Echocardiogram 06/27/24 08:53 Interpretation Summary The left ventricular ejection fraction is 35 %. Mild-Moderate (1-2+) eccentric mitral valve insufficiency. Normal left ventricle. Ordering Physician: Leonardo Trejo Referring Physician: Omar Trejo Performed By: Stephanie Watt RDCS, RVT Renal Ultrasound 06/27/24 09:23 IMPRESSION: NORMAL RENAL ULTRASOUND. Reading Location: [facility] Physical Exam Const alert Constitutional Narrative: Intubated but alert and able to nod yes and no HEENT normocephalic Eyes EOMs intact bilaterally Neck Neck Narrative: Endotracheal NG tube in place. Chest inspection of chest normal Resp normal respiratory effort Auscultation: rhonchi throughout Cardio Rate: regular rate Rhythm: regular rhythm Heart Sounds: S1 normal, S2 normal and other Other Details: . Difficult to auscultate due to the respiratory noise. ; Negative for click, gallop or murmur Extremity General Extremity: edema bilateral lower extremity (2+ bilateral) Neuro Neuro Narrative: Intubated but alert. Psych Psych Narrative: Intubated. Assessment & Plan Assessment/Plan (1) HFrEF (heart failure with reduced ejection fraction): PLAN: The patient's echocardiogram shows an EF of 35% in the globally depressed fashion. Both atria are normal size and there is 1-2+ mitral regurgitation probably related to the LV dysfunction. The patient's decompensation is probably related to acute renal failure. Hemodynamically the dialysis. The patient is now 2.165 L negative during the first 2 dialysis runs. Electrolytes are improving the metabolic acidosis is resolving. Once the patient's metabolic derangements are completely corrected would recommend repeating a limited echocardiogram. If that shows persistent LV dysfunction will need to address this with guideline directed medical therapy for LV dysfunction. If blood pressure control is needed at this time we recommend starting Coreg as blood pressure and heart rate will tolerate. And then adding afterload reduction therapy either an ARB or combination of hydralazine and nitrates which ever the nephrology team prefers. I did review these plans with the patient's and son who are in the room today. (2) Acute hypoxic respiratory failure: PLAN: The patient is responding well to dialysis and fluid removal. Further treatment and decision on extubation is per the willow machine operator service. (3) Acute metabolic acidosis: PLAN: The metabolic acidosis is markedly improved. Continues to do improved with dialysis. (4) Acute renal failure: QUALIFIERS: Acute renal failure type: unspecified Qualified Code(s): N17.9 - Acute kidney failure, unspecified PLAN: Patient is currently finishing his second hemodialysis runs in the last 24 hours. Further treatment and recommendations per the nephrology team. PLAN: Plan 1. Will continue to monitor the patient from a cardiovascular standpoint. 2. Once the patient's metabolic status is at baseline and controlled with dialysis would repeat a limited echocardiogram. 3. If there is persistent LV dysfunction which is likely, would recommend addition of Coreg and afterload reduction therapy. 4. Would request nephrology's input on appropriate afterload reduction therapy from their perspective, an DREA or ARB or alternatively hydralazine nitrate combination therapy. Charges/Coding Visit Charges Inpatient E&M: 55954 [facility] Hosp L3
[2024-06-28] MEDS: Heparin Injection (Vial) 5,000 UNIT/ML VIAL 5000 UNIT SC ×2 (11:20→22:16)
[2024-06-28] MEDS: Pantoprazole Sodium 40 MG in 0.9% Normal Saline (100mL MB+) 100 ML 330 MG IV (11:26)
[2024-06-28 11:46] LABS: Bedside Glucose 67 mg/dL (74-106)
[2024-06-28] MEDS: NEPRO 1,000 ML 45 ML GT (12:44)
--- NOTE | 2024-06-28 12:54 | CPS ---
patient experiencing frequent episodes of apnea. He states that he is tired.
[2024-06-28 13:23] LABS: Hemoglobin 6.5 g/dL (13.0-16.5)
[2024-06-28 13:51] LABS: Anion Gap 13 (5-15); BUN 43 mg/dL (4-19); BUN/Creat Ratio 7.9 RATIO (10-20); Calcium,Total 7.8 mg/dL (7.6-11.0); Carbon Dioxide 18.6 mmol/L (21.0-32.0); Chloride 103 mmol/L (98-108); Creatinine, Serum 5.41 mg/dL (0.70-1.20); EST Glomerular Filtration Rate 11 (>60); Estimated Creatinine Clearance 13.61 ml/min (50-250); Glucose 141 mg/dL (70-99); Potassium 3.6 mmol/L (3.3-5.1); Sodium Level 135 mmol/L (133-145)
[2024-06-28 18:32] LABS: Bedside Glucose 86 mg/dL (74-106)
--- NOTE | 2024-06-28 20:23 | NURSING ---
With pt permission, gold wedding band taken off patients left hand and placed into denture cup by this RN. Denture cup was then labeled w/ pt information label and placed into locked medication work measurement engineer CVICU 204.
[2024-06-28] MEDS: Chlorhexidine 15 ML PO (22:00)
[2024-06-28 22:36] LABS: Bedside Glucose 76 mg/dL (74-106)
[2024-06-29] VITALS (34 sets, daily range): BP systolic 115–162; BP diastolic 52–78; PULSE 55–87; RESP 14–24; TEMP 37.7–38.6; O2SAT 91–98; BMI 27.5
[2024-06-29] MEDS: Propofol 10MG/Ml 1,000 MG/100 ML Bottle 15.7 MG CONT INF (00:12)
[2024-06-29] MEDS: CHLORHEXIDINE GLUC 2% CLOTH 1 EACH TOWELETTE TOPICAL (03:52)
[2024-06-29 04:52] LABS: Absolute Lymphocyte Count 0.89 X10^3/uL (0.83-4.51); Absolute Neutrophil Count 6.3 X10^3/uL (2.0-7.7); Basophil# 0.05 X10^3/uL; Basophil% 0.6 % (0-1); Eosinophil# 0.66 X10^3/uL; Eosinophils% 7.6 % (0-5); Hematocrit 25.4 % (40-54); Hemoglobin 8.6 g/dL (13.0-16.5); Lymphocyte # 0.89 X10^3/ul (0.83-4.51); Lymphocyte % 10.3 % (19-41); Mean Corp Hgb Conc 33.9 g/dL (32-36); Mean Corpuscular Hgb 29.1 pg (27.0-32.0); Mean Corpuscular Volume 85.8 fL (80-94); Mean Platelet Vol. 10.9 fl (6.2-12.0); Monocyte# 0.68 X10^3/uL; Monocyte% 7.9 % (0-10); NRBC Flagged by Analyzer 0 % (0-5); Neutrophil # 6.31 X10^3/uL (2.7-7.7); Neutrophil % 73.1 % (47-70); Platelet Count 122 K/mm3 (150-450); RBC Distribution Width CV 15.5 % (11.6-14.6); RBC Distribution Width SD 47.8 fl (35.1-43.9); Red Blood Count 2.96 M/mm3 (4.6-6.2); White Blood Count 8.6 K/mm3 (4.4-11.0)
[2024-06-29 05:12] LABS: Anion Gap 14 (5-15); BUN 52 mg/dL (4-19); BUN/Creat Ratio 7.8 RATIO (10-20); Calcium,Total 7.5 mg/dL (7.6-11.0); Carbon Dioxide 17.6 mmol/L (21.0-32.0); Chloride 105 mmol/L (98-108); Creatinine, Serum 6.63 mg/dL (0.70-1.20); EST Glomerular Filtration Rate 9 (>60); Estimated Creatinine Clearance 11.11 ml/min (50-250); Glucose 108 mg/dL (70-99); Potassium 3.7 mmol/L (3.3-5.1); Sodium Level 137 mmol/L (133-145)
[2024-06-29] MEDS: 0.9% Saline Lock 10 ML Syringe IV ×2 (05:33→21:36)
[2024-06-29] MEDS: fentaNYL drip 100 ML 5 MCG CONT INF (05:33)
[2024-06-29] MEDS: Propofol 10MG/Ml 1,000 MG/100 ML Bottle 15.2 MG CONT INF (06:00)
[2024-06-29 06:22] LABS: Bedside Glucose 97 mg/dL (74-106)
[2024-06-29 06:22] LABS: Bedside Glucose 99 mg/dL (74-106)
[2024-06-29] MEDS: Heparin Injection (Vial) 5,000 UNIT/ML VIAL 5000 UNIT SC ×2 (07:41→21:36)
[2024-06-29] MEDS: Pantoprazole Sodium 40 MG in 0.9% Normal Saline (100mL MB+) 100 ML 330 MG IV (07:42)
[2024-06-29] MEDS: Chlorhexidine 15 ML PO ×2 (07:42→21:35)
--- NOTE | 2024-06-29 08:32 | CON.PCM.SX_ITS ---
Assessment & Plan Assessment/Plan (1) LG (acute kidney injury): PLAN: The patient has been receiving dialysis through his temporary catheter. I was consulted to tunnel a catheter for him. I had him scheduled for tomorrow morning but the patient has become febrile. I am unsure about implanting a device if he is still having fevers of 102. We will see how his temperatures do over the next 24 hours and or waiting his sputum culture. If the patient continues to be febrile we may hold off till later in the week. If the patient is doing well, dialysis catheter tomorrow. Franklin Edge MD Pager: [facility] [address] [place] [address], [address] [place] [address] Office: HPI Consult Data Date of Consult: 06/29/24 HPI Narrative HPI Narrative: ELSIE VILLALPANDO, is a 64 M who presents with nephrotic syndrome. The patient came in with fluid overload and was intubated for respiratory distress. He had a temporary catheter placed for dialysis and he has been getting dialysis through this. I am consulted for a tunneled dialysis catheter. [facility] Medical History Tobacco use HTN (hypertension) HTN (hypertension) Hearing problem Back problem Seasonal allergies Home Medications ?Medication ?Instructions ?Recorded ?Last Taken ?Type blood sugar diagnostic (Accu-Chek #10 ea 07/09/19 Unkn own History Erika Plus test strips) blood-glucose meter (Accu-Chek #1 ea 07/09/19 Unknown History Erika Plus Meter) blood pressure monitor (Blood #1 ea 09/29/21 Unknown R x Pressure Kit) compr.stocking,knee,long,large #12 ea 09/29/21 Unknown Rx amlodipine 10 mg tablet 10 mg PO DAILY #30 tabs 07/04 Unknown Rx valsartan 320 mg tablet 320 mg PO DAILY #30 tabs 07/04 Unknown Rx Allergy/AdvReac Type Severity Reaction Status Date / Time ciprofloxacin (From Cipro) Allergy Hives Verified 06/27/24 05:05 ciprofloxacin HCl (From Allergy Hives Verified 06/27/24 05:05 Cipro) meperidine HCl (From Demerol) AdvReac Other Verified 06/27/24 05:05 Family History Other Hypertension Surgical History History of hernia repair Social History Smoking Status: Heavy Smoker (>10/day) Tobacco: How many years used: 20 second hand exposure: Yes alcohol intake: never substance use type: does not use what type of physical activity do you participate in: walking frequency: daily duration: 60-90 minutes/day ROS Review of Systems ROS Unobtainable: due to endotracheal tube Physical Exam Const alert and healthy appearing HEENT normocephalic Cardio Rate: regular rate Rhythm: regular rhythm GI soft to palpation and non-tender Lab / Micro Data 06/29/24 04:41 06/29/24 04:41 Labs: Laboratory Results - last 24 hr 06/27/24 05:55: Crossmatch See Detail 06/27/24 05:55: Crossmatch See Detail 06/28/24 06:12: TIBC TNP 06/28/24 11:17: POC Glucose 67 L 06/28/24 13:10: Hgb 6.5 L, Hct 19.0 L, Sodium 135, Potassium 3.6, Chloride 103, Carbon Dioxide 18.6 L, Anion Gap 13, BUN 43 H, Creatinine 5.41 H, Estim Creat Clear Calc 13.61 L, Est GFR (MDRD) Non-Af 11 L, BUN/Creatinine Ratio 7.9 L, G lucose 141 H, Calcium 7.8 06/28/24 18:12: POC Glucose 86 06/28/24 22:14: POC Glucose 76 06/29/24 02:18: POC Glucose 97 06/29/24 04:41: WBC 8.6, RBC 2.96 L, Hgb 8.6 L, Hct 25.4 L, MCV 85.8, MCH 29.1, MCHC 33.9, RDW Std Deviation 47.8 H, RDW Coeff of Hallie 15.5 H, Plt Count 122 L, MPV 10.9, Immature Gran % (Auto) 0.500, Neut % (Auto) 73.1 H, Lymph % (Auto) 10.3 L, [place] % (Auto) 7.9, Eos % (Auto) 7.6 H, Baso % (Auto) 0.6, Absolute Neuts (auto) 6.3, Absolute Lymphs (auto) 0.89, Nucleated RBC % 0, Sodium 137, Potassium 3.7, Chloride 105, Carbon Dioxide 17.6 L, Anion Gap 14, BUN 52 H, C reatinine 6.63 H, Estim Creat Clear Calc 11.11 L, Est GFR (MDRD) Non-Af 9 L, B UN/Creatinine Ratio 7.8 L, Glucose 108 H, Calcium 7.5 L 06/29/24 05:59: POC Glucose 99 Micro: Microbiology 06/27/24 05:55 Blood Culture (Wb) - Left Forearm Blood Culture - Preliminary No growth in 48 hours. 06/27/24 05:40 Blood Culture (Wb) - Anticubital Left Blood Culture - Preliminary No growth in 48 hours. 06/27/24 14:15 Sputum, Induced/Lukens Gram Stain - Final 06/27/24 14:15 Sputum, Induced/Lukens Respiratory Culture - Preliminary Appears to be normal respiratory michael. Further studies to follow. Rhythm Strip Rhythm Strip: Sinus Rhythm Rate: 90 Ectopy: None Imaging Radiology Impression Chest X-Ray 06/28/24 05:05 IMPRESSION: Cardiomegaly with persistent rightward mediastinal shift. Probable small right pleural effusion. Support devices as described. Reading Location: [facility]
--- NOTE | 2024-06-29 08:44 | PN.HOSP_ITS ---
Subjective Subjective Intubated and sedated, he did spike a temp overnight. Hemoglobin has stabilized at 8.6 after 3 units of blood. He has not had a bowel movement so unclear as to where the blood loss is from. He has anemia of chronic disease Objective Data Objective Data Vital Signs: Vital Signs Temp Pulse Resp BP Pulse Ox O2 Del Method O2 Flow Rate 100.3 F H 59 L 20 H 124/59 H 97 Mechanical Ventilator 40 06/29/24 08:00 06/29/24 08:00 06/29/24 08:00 06/29/24 08:00 06/29/24 08:00 06/29/24 08:00 06/27/24 09:45 FiO2 25 06/29/24 08:00 Oxygen Flow Rate (L/min) 40 Oxygen Delivery Method Mechanical Ventilator Weight: 186 lb 1.122 oz Body Mass Index (BMI) 27.5 Intake & Output: Intake and Output for Last 24 Hours 06/28/24 06/29/24 06/30/24 03:59 03:59 03:59 Intake Total 1041.31 / 1061.81 1112.62 / 1163.32 241.50 / 241.50 Output Total 1200 / 1200 2555 / 2555 220 / 220 Balance -158.69 / -138.19 -1442.38 / -1391.68 21.50 / 21.50 Lab / Micro Data 06/29/24 04:41 06/29/24 04:41 Labs: Laboratory Results - last 24 hr 06/27/24 05:55: Crossmatch See Detail 06/27/24 05:55: Crossmatch See Detail 06/28/24 06:12: TIBC TNP 06/28/24 11:17: POC Glucose 67 L 06/28/24 13:10: Hgb 6.5 L, Hct 19.0 L, Sodium 135, Potassium 3.6, Chloride 103, Carbon Dioxide 18.6 L, Anion Gap 13, BUN 43 H, Creatinine 5.41 H, Estim Creat Clear Calc 13.61 L, Est GFR (MDRD) Non-Af 11 L, BUN/Creatinine Ratio 7.9 L, G lucose 141 H, Calcium 7.8 06/28/24 18:12: POC Glucose 86 06/28/24 22:14: POC Glucose 76 06/29/24 02:18: POC Glucose 97 06/29/24 04:41: WBC 8.6, RBC 2.96 L, Hgb 8.6 L, Hct 25.4 L, MCV 85.8, MCH 29.1, MCHC 33.9, RDW Std Deviation 47.8 H, RDW Coeff of Hallie 15.5 H, Plt Count 122 L, MPV 10.9, Immature Gran % (Auto) 0.500, Neut % (Auto) 73.1 H, Lymph % (Auto) 10.3 L, [place] % (Auto) 7.9, Eos % (Auto) 7.6 H, Baso % (Auto) 0.6, Absolute Neuts (auto) 6.3, Absolute Lymphs (auto) 0.89, Nucleated RBC % 0, Sodium 137, Potassium 3.7, Chloride 105, Carbon Dioxide 17.6 L, Anion Gap 14, BUN 52 H, C reatinine 6.63 H, Estim Creat Clear Calc 11.11 L, Est GFR (MDRD) Non-Af 9 L, B UN/Creatinine Ratio 7.8 L, Glucose 108 H, Calcium 7.5 L 06/29/24 05:59: POC Glucose 99 Micro: Microbiology 06/27/24 05:55 Blood Culture (Wb) - Left Forearm Blood Culture - Preliminary No growth in 48 hours. 06/27/24 05:40 Blood Culture (Wb) - Anticubital Left Blood Culture - Preliminary No growth in 48 hours. 06/27/24 14:15 Sputum, Induced/Lukens Gram Stain - Final 06/27/24 14:15 Sputum, Induced/Lukens Respiratory Culture - Preliminary Appears to be normal respiratory michael. Further studies to follow. Radiography Diagnostic Testing: Radiology Impression Chest X-Ray 06/28/24 05:05 IMPRESSION: Cardiomegaly with persistent rightward mediastinal shift. Probable small right pleural effusion. Support devices as described. Reading Location: [facility] Rhythm Strip Rhythm Strip: Sinus Rhythm Rate: 90 Ectopy: None Physical Exam Const General Appearance: intubated and patient mechanically ventilated HEENT normocephalic Eyes PERRL and conjunctivae normal Neck supple and no JVD Resp normal respiratory effort, no retractions and no use of accessory muscles Auscultation: Negative for crackles, rales, rhonchi or wheezes Cardio regular rate, regular rhythm, S1 normal heart sound, S2 normal heart sound and no murmurs GI soft to palpation and non-distended; Negative for hepatosplenomegaly Extremity Extremity Narrative: 2+ pitting edema Skin no rashes or lesions noted Neuro Sensorium / Orientation: sedated on vent Psych Appearance: intubated Assessment & Plan Assessment/Plan (1) Acute hypoxic respiratory failure: PLAN: Plan 1. Acute hypoxic respiratory failure secondary to flash pulmonary edema from acute systolic CHF exacerbation precipitated by untreated nephrotic syndrome with metabolic acidosis/anemia ? Will consult the sorter upholstery parts as well as nephrology for dialysis ? Plan for tunneled catheter on Sunday ? Given his recurrent respiratory distress, he has been weaned down to 2 L nasal cannula but be placed back on BiPAP he was intubated ? Metabolic acidosis is due to his renal failure, was temporarily placed on a bicarb drip until he could have run of dialysis today ? He was given a dose of Lasix in the ER, will consult cardiology given his elevated troponins, this is likely due to demand ischemia from his significant hypoxia and volume overload ? Echocardiogram with an EF of 35% with apical hypokinesis, once he is more stable and extubated may need further cardiac evaluation with cardiac cath but to be determined whether to be done inpatient or as an outpatient ? pH on admission was 7.02 with a bicarb of 9.5, after intubation his pH was 7.16 with a bicarb of 10.5 and after dialysis his pH was 7.26 with a bicarb of 17.3 ? Unclear as to the etiology of his anemia, he was transfused 3 units ? Continue with tube feeds 2. Type 2 diabetes ? Will place him on every 4 sliding scale insulin ? Accu-Cheks every 4 ? Will monitor and make adjustments as necessary 3. Essential HTN ? Will hold his home blood pressure medications while he is on dialysis ? Will monitor make adjustments as necessary DVT: Heparin Charges/Coding Visit Charges Inpatient E&M: 61075 Subs Hosp L2
--- NOTE | 2024-06-29 10:37 | PN.CC_ITS ---
Objective Data Objective Data Vital Signs: Vital Signs Last response 3 Temperature 38.0 C H 06/29/24 10:00 Temperature Source Core 06/29/24 10:00 Pulse Rate 68 06/29/24 10:00 Pulse Strength Weak (1+) 06/29/24 08:09 Respiratory Rate 19 H 06/29/24 10:00 Respiratory Effort Mechanically Ventilated 06/29/24 08:00 Respiratory Depth Normal 06/29/24 08:00 Respiratory Pattern Normal 06/29/24 09:55 Blood Pressure 146/71 H 06/29/24 10:00 Blood Pressure Mean 96 06/29/24 10:00 Blood Pressure Source Monitor 06/29/24 10:00 Blood Pressure Position Semi-Fowlers 06/29/24 10:00 Blood Pressure Location Right Arm 06/29/24 10:00 Pulse Ox 97 06/29/24 10:00 Oxygen Delivery Method Mechanical Ventilator 06/29/24 10:00 Oxygen Flow Rate (L/min) 40 06/27/24 09:45 Fraction of Inspired Oxygen (FIO2) 06/29/24 10:00 I&O: I&O Last 24 Hours 3 06/28/24 06/28/24 06/29/24 11:59 23:59 11:59 Intake Total 458.40 / 1255.75 751.65 / 1255.75 409.60 / 409.60 Output Total 2645 / 3205 435 / 3205 345 / 345 Balance -2186.60 / -1949.25 316.65 / -1949.25 64.60 / 64.60 I&O: Total Stay 3 06/27/24 04:57 thru 06/29/24 10:15 Intake Total 2455.73 Output Total 3975 Balance -1519.27 Current Meds Ordered / Administered: Current meds ordered / Administered 3 Generic Name Dose Route Start Last Admin Trade Name Freq PRN Reason Stop Dose Admin Chlorhexidine Gluconate 15 ml 06/29/24 10:00 06/29/24 07:42 Chlorhexidine 15 Ml PO 15 ml BID INOCENTE Administration Chlorhexidine Gluconate 1 each 06/29/24 10:00 06/29/24 03:52 Chlorhexidine Gluc 2% Cloth 1 Each [place] TOPICAL 1 each DAILY INOCENTE Administration Glucagon 1 mg 06/27/24 16:17 Glucagon 1 Mg/Ml Syringe IM X1 PRN Hypoglycemia Protocol Heparin Sodium (Porcine) 5,000 unit 06/27/24 10:00 06/29/24 07:41 Heparin Injection (Vial) 5,000 Unit/Ml Vial SC 5,000 unit Q12 INOCENTE Administration Propofol 1,000 mg in 100 mls @ 5.064 mls/hr 06/27/24 09:35 06/29/24 10:15 Diprivan CONT INF 0 mcg/kg/min .Q12H INOCENTE 0 mls/hr Titration Protocol 10 MCG/KG/MIN Fentanyl 100 mls @ 5 mls/hr 06/27/24 09:35 06/29/24 10:00 CONT INF 0 mcg/hr UD INOCENTE 0 mls/hr Titration Protocol 50 MCG/HR Pantoprazole Sodium 40 mg/ 110 mls @ 330 mls/hr 06/27/24 10:00 06/29/24 08:15 Sodium Chloride IV Infused Q24 INOCENTE Infusion Dexmedetomidine HCl 400 mcg/ 100 mls @ 10.925 mls/hr 06/27/24 12:15 06/29/24 07:37 Sodium Chloride CONT INF Not Given .Q9H10M INOCENTE Protocol 0.5 MCG/KG/HR Dextrose 250 mls @ 0 mls/hr 06/27/24 16:17 06/28/24 12:00 Dextrose 10%-Water IV 0 mls/hr .Q0M PRN Infusion HYPOGLYCEMIA Protocol As Directed Enteral Nutritional Formula 1,000 mls @ 45 mls/hr 06/28/24 11:15 06/29/24 07:36 Nepro Carb Steady GT Not Given .[id number] INOCENTE Insulin Human Lispro 0 unit 06/27/24 18:00 06/29/24 06:02 Insulin Lispro 100 Unit/Ml Insuln.Pen SC Not Given Q4 INOCENTE Protocol Sodium Chloride 10 - 40 ml 06/27/24 13:18 06/29/24 05:33 0.9% Saline Lock 10 Ml Syringe IV 10 ml UD PRN Administration SALINE FLUSH Lab / Micro Data Attestation: I reviewed the patient's lab results. 06/29/24 04:41 06/29/24 04:41 Labs: Laboratory Results - last 24 hr 06/27/24 05:55: Crossmatch See Detail 06/28/24 11:17: POC Glucose 67 L 06/28/24 13:10: Hgb 6.5 L, Hct 19.0 L, Sodium 135, Potassium 3.6, Chloride 103, Carbon Dioxide 18.6 L, Anion Gap 13, BUN 43 H, Creatinine 5.41 H, Estim Creat Clear Calc 13.61 L, Est GFR (MDRD) Non-Af 11 L, BUN/Creatinine Ratio 7.9 L, G lucose 141 H, Calcium 7.8 06/28/24 18:12: POC Glucose 86 06/28/24 22:14: POC Glucose 76 06/29/24 02:18: POC Glucose 97 06/29/24 04:41: WBC 8.6, RBC 2.96 L, Hgb 8.6 L, Hct 25.4 L, MCV 85.8, MCH 29.1, MCHC 33.9, RDW Std Deviation 47.8 H, RDW Coeff of Hallie 15.5 H, Plt Count 122 L, MPV 10.9, Immature Gran % (Auto) 0.500, Neut % (Auto) 73.1 H, Lymph % (Auto) 10.3 L, [place] % (Auto) 7.9, Eos % (Auto) 7.6 H, Baso % (Auto) 0.6, Absolute Neuts (auto) 6.3, Absolute Lymphs (auto) 0.89, Nucleated RBC % 0, Sodium 137, Potassium 3.7, Chloride 105, Carbon Dioxide 17.6 L, Anion Gap 14, BUN 52 H, C reatinine 6.63 H, Estim Creat Clear Calc 11.11 L, Est GFR (MDRD) Non-Af 9 L, B UN/Creatinine Ratio 7.8 L, Glucose 108 H, Calcium 7.5 L 06/29/24 05:59: POC Glucose 99 Micro: Microbiology 06/27/24 05:55 Blood Culture (Wb) - Left Forearm Blood Culture - Preliminary No growth in 48 hours. 06/27/24 05:40 Blood Culture (Wb) - Anticubital Left Blood Culture - Preliminary No growth in 48 hours. 06/27/24 14:15 Sputum, Induced/Lukens Gram Stain - Final 06/27/24 14:15 Sputum, Induced/Lukens Respiratory Culture - Preliminary Appears to be normal respiratory michael. Further studies to follow. Rhythm Strip Rhythm Strip: Sinus Rhythm Rate: 90 Ectopy: None Imaging Radiology Impression Chest X-Ray 06/28/24 05:05 IMPRESSION: Cardiomegaly with persistent rightward mediastinal shift. Probable small right pleural effusion. Support devices as described. Reading Location: [facility] Assessment and Plan . Assessment and plan: ICU Problem List: acute hypoxemic respiratory failure mechanical ventilation acute congestive heart failure exacerbation, syostolic EF 35% acute renal failure atelectasis effusion, pleural tracheitis Plan: DC sedation for SAT NIF and VC measurement ~1200pm Hold TFs PSV 5/5 time pressure to extubate 2/2 tracheitis, not yet VAP/HCAP Bernardo Rodríguez MD PCCM [facility] Critical Care Time: 60 min The entirety of this encounter was done via Telemedicine Physical Exam Const General Appearance: intubated and patient mechanically ventilated HEENT normocephalic Eyes PERRL and conjunctivae normal Neck supple and no JVD Resp normal respiratory effort, no retractions and no use of accessory muscles Auscultation: Negative for crackles, rales, rhonchi or wheezes Cardio regular rate, regular rhythm, S1 normal heart sound, S2 normal heart sound and no murmurs GI soft to palpation and non-distended; Negative for hepatosplenomegaly Extremity Extremity Narrative: 2+ pitting edema Skin no rashes or lesions noted Neuro Sensorium / Orientation: sedated on vent Psych Appearance: intubated Subjective Subjective HPI Narrative: ELSIE VILLALPANDO is a 64yo with depressed EF 35% presenting in acute hypoxemic RF, failed trial of NIPPV 2/2 orthopnea and hypoxemic respiratory failure. Intubated, getting HD, which is new for him. CXR showing dextrotation, pulmonary edema, effusion and atelectasis. 06/28 - today, patient getting HD first shift and transfusion 2/2 anemia, presumed related to hypervolemia. Fi25% on vent, but SpO2 89-91%. Bucking vent 2/2 dyssynchrony and higher inflow than vent delivering. sedated on propofol and fentanyl. 06/29 - fent at 50 and propo at 30, patient [place] and following commands; 25%FiO2 on vent, PEEP 5; secretions from ETT getting thicker, but oral cavity is foul smelling per nurse. Slight temp elevation. ROS could not be obtain 2/2 intubation and sedation.
--- NOTE | 2024-06-29 11:20 | NURSING ---
Heart rate alarming 121, this RN observed patient coughing, oral suctioned with copious secretions, ETT suctioned- mucous plugging, lavaged ETT with copious thick secretions and x2 mucoid plugs witnessed in tube. O2 sats dropped to 84% on 100% FiO2. O2 sats improved after several minutes to 91% and heart rate in the 90s. Contacted Dr. Rodríguez, waiting for call back.
[2024-06-29 11:33] LABS: Bedside Glucose 100 mg/dL (74-106)
[2024-06-29] MEDS: Acetaminophen 650 MG/20 ML UDC GT ×2 (11:40→21:48)
--- NOTE | 2024-06-29 11:57 | NURSING ---
respiratory notified to switch ventilator back to previous settings
--- NOTE | 2024-06-29 12:05 | CPS ---
patient mucas plugged, nurse suctioned out a lot of thick secretions. talked to physician, put patient back on original settings.
--- NOTE | 2024-06-29 12:16 | PCM.RX.CS ---
Consult Antibiotic Management Pharmacy has been consulted to manage selected antibiotic: Vancomycin Type of Intervention Type of Consult: New start Suspected Infection Suspected Infection: Other Labs Labs: Sodium 137 mmol/L (133-145) 06/29/24 04:41 Potassium 3.7 mmol/L (3.3-5.1) 06/29/24 04:41 Chloride 105 mmol/L (98-108) 06/29/24 04:41 Carbon Dioxide 17.6 mmol/L (21.0-32.0) L 06/29/24 04:41 Anion Gap 14 (5-15) 06/29/24 04:41 BUN 52 mg/dL (4-19) H 06/29/24 04:41 Creatinine 6.63 mg/dL (0.70-1.20) H 06/29/24 04:41 Est GFR (MDRD) Non-Af 9 (>60) L 06/29/24 04:41 BUN/Creatinine Ratio 7.8 RATIO (10-20) L 06/29/24 04:41 Glucose 108 mg/dL (70-99) H 06/29/24 04:41 Microbiology Microbiology: Microbiology 06/27/24 14:15 Sputum, Induced/Lukens Gram Stain - Final 06/27/24 14:15 Sputum, Induced/Lukens Respiratory Culture - Final Mixed normal respiratory michael. No Streptococcus pneumoniae, beta-hemolytic Streptococcus or Staphylococcus aureus isolated. 06/27/24 05:55 Blood Culture (Wb) - Left Forearm Blood Culture - Preliminary No growth in 48 hours. 06/27/24 05:40 Blood Culture (Wb) - Anticubital Left Blood Culture - Preliminary No growth in 48 hours. Dosing Weight Weight used for dosin.4 kg Estimated Creatinine Clearance Estimated Creatinine Clearance: 11.11 Goal Trough Goal Trough: 15-20 mcg/mL Pharmacy Plan for Drug Dosing Pharmacy Plan for Drug Dosing: NEW START IV VANCOMYCIN Consulting Physician: Dr. Izabella Rodríguez Indication: Empiric Goal Trough: 15-20 SrCr: 6.63 CrCl: 11.11 ml/min - received HD 06/28/24, new HD patient Comments: Standard initial dose 1250mg x1 to be given now Vancomycin Dose: by drug level - monitor HD schedule to order further Vancomycin doses Pharmacy Service will continue to monitor and adjust dosing as required.
[2024-06-29] MEDS: Cefepime HCl 1 GM in 0.9% Normal Saline (50mL MB+) 50 ML IV (13:03)
[2024-06-29] MEDS: Vancomycin HCl 1,250 MG in 0.9% Normal Saline (250mL Bag) 250 ML 167 MG IV (13:28)
[2024-06-29 13:51] LABS: Bedside Glucose 122 mg/dL (74-106)
--- NOTE | 2024-06-29 14:12 | NURSING ---
discussing with patient and family possibly d/c'ing restraints, son stated I wouldn't trust his hands untied. I think he may drift to sleep and go to rip that tube out. also agreed. Restraints maintained at this time.
[2024-06-29] MEDS: Propofol 10MG/Ml 1,000 MG/100 ML Bottle 12.7 MG CONT INF ×2 (14:46→21:51)
[2024-06-29] MEDS: 0.9% Normal Saline (100mL Bag) 100 ML 15 ML IV (17:30)
[2024-06-29] MEDS: NEPRO 1,000 ML 45 ML GT (17:32)
[2024-06-29 17:58] LABS: Bedside Glucose 121 mg/dL (74-106)
[2024-06-29 22:03] LABS: Bedside Glucose 108 mg/dL (74-106)
[2024-06-30] VITALS (42 sets, daily range): BP systolic 93–186; BP diastolic 47–92; PULSE 50–82; RESP 13–23; TEMP 37.3–38.4; O2SAT 95–100; BMI 27.8; BMI 26.9
[2024-06-30 05:19] LABS: Absolute Neutrophil Count 5.6 X10^3/uL (2.0-7.7); Basophil# 0.04 X10^3/uL; Basophil% 0.5 % (0-1); Eosinophil# 0.55 X10^3/uL; Eosinophils% 7.5 % (0-5); Hematocrit 26.2 % (40-54); Hemoglobin 8.6 g/dL (13.0-16.5); Lymphocyte % 8.1 % (19-41); Mean Corp Hgb Conc 32.8 g/dL (32-36); Mean Corpuscular Volume 88.2 fL (80-94); Mean Platelet Vol. 11.6 fl (6.2-12.0); Monocyte# 0.57 X10^3/uL; Monocyte% 7.7 % (0-10); NRBC Flagged by Analyzer 0 % (0-5); Neutrophil # 5.58 X10^3/uL (2.7-7.7); Neutrophil % 75.8 % (47-70); POSITIVE DIFFERENTIAL YES; Platelet Count 108 K/mm3 (150-450); RBC Distribution Width CV 15.4 % (11.6-14.6); RBC Distribution Width SD 49.7 fl (35.1-43.9); Red Blood Count 2.97 M/mm3 (4.6-6.2); White Blood Count 7.4 K/mm3 (4.4-11.0)
[2024-06-30] MEDS: Propofol 10MG/Ml 1,000 MG/100 ML Bottle 12.7 MG CONT INF (05:53)
[2024-06-30 06:09] LABS: Bedside Glucose 105 mg/dL (74-106)
[2024-06-30 06:36] LABS: Anion Gap 17 (5-15); BUN 55 mg/dL (4-19); BUN/Creat Ratio 7.1 RATIO (10-20); Calcium,Total 7.4 mg/dL (7.6-11.0); Carbon Dioxide 15.7 mmol/L (21.0-32.0); Chloride 107 mmol/L (98-108); Creatinine, Serum 7.66 mg/dL (0.70-1.20); EST Glomerular Filtration Rate 7 (>60); Estimated Creatinine Clearance 10.42 ml/min (50-250); Glucose 105 mg/dL (70-99); Potassium 3.7 mmol/L (3.3-5.1); Sodium Level 139 mmol/L (133-145)
--- NOTE | 2024-06-30 07:10 | PCM.PN.HOSP ---
Reason for Visit Reason for Visit: Shortness of breath Subjective Subjective No specific issues overnight however the patient still been febrile on and off with low-grade temperatures. Cultures were unremarkable thus far. He remains on broad-spectrum antibiotics. Plan is to hold off on tunneled dialysis catheter if we have a better understanding why he continues to have intermittent low-grade temperatures. Objective Data Objective Data Vital Signs: Vital Signs Temp Pulse Resp BP Pulse Ox O2 Del Method O2 Flow Rate 99.9 F H 60 20 H 130/68 H 97 Mechanical Ventilator 40 06/30/24 07:00 06/30/24 07:00 06/30/24 07:00 06/30/24 07:00 06/30/24 07:00 06/30/24 07:00 06/27/24 09:45 FiO2 25 06/30/24 07:00 Oxygen Flow Rate (L/min) 40 Oxygen Delivery Method Mechanical Ventilator Weight: 85.6 kg Body Mass Index (BMI) 27.8 Intake & Output: Intake and Output for Last 24 Hours 06/28/24 06/29/24 06/30/24 23:59 23:59 23:59 Intake Total 1210.05 / 1255.75 1821.17 / 1866.37 179.57 / 179.57 Output Total 3080 / 3205 695 / 1045 750 / 750 Balance -1869.95 / -1949.25 1126.17 / 821.37 -570.43 / -570.43 Lab / Micro Data 06/30/24 03:32 06/30/24 04:53 Labs: Laboratory Results - last 24 hr 06/29/24 11:14: POC Glucose 100 06/29/24 13:31: POC Glucose 122 H 06/29/24 17:22: POC Glucose 121 H 06/29/24 21:38: POC Glucose 108 H 06/30/24 03:32: WBC 7.4, RBC 2.97 L, Hgb 8.6 L, Hct 26.2 L, MCV 88.2, MCH 29.0, MCHC 32.8, RDW Std Deviation 49.7 H, RDW Coeff of Hallie 15.4 H, Plt Count 108 L, MPV 11.6, Immature Gran % (Auto) 0.400, Neut % (Auto) 75.8 H, Lymph % (Auto) 8.1 L, [place] % (Auto) 7.7, Eos % (Auto) 7.5 H, Baso % (Auto) 0.5, Absolute Neuts (auto) 5.6, Absolute Lymphs (auto) 0.60 L, Nucleated RBC % 0 06/30/24 04:53: Sodium 139, Potassium 3.7, Chloride 107, Carbon Dioxide 15.7 L, Anion Gap 17 H, BUN 55 H, Creatinine 7.66 H*, Estim Creat Clear Calc 10.42 L, Est GFR (MDRD) Non-Af 7 L, BUN/Creatinine Ratio 7.1 L, Glucose 105 H, Calcium 7.4 L 06/30/24 05:50: POC Glucose 105 Micro: Microbiology 06/27/24 14:15 Sputum, Induced/Lukens Gram Stain - Final 06/27/24 14:15 Sputum, Induced/Lukens Respiratory Culture - Final Mixed normal respiratory michael. No Streptococcus pneumoniae, beta-hemolytic Streptococcus or Staphylococcus aureus isolated. 06/27/24 05:55 Blood Culture (Wb) - Left Forearm Blood Culture - Preliminary No growth in 48 hours. 06/27/24 05:40 Blood Culture (Wb) - Anticubital Left Blood Culture - Preliminary No growth in 48 hours. Rhythm Strip Rhythm Strip: Sinus Rhythm Rate: 90 Ectopy: None Physical Exam Const no apparent distress and average body habitus; Negative for healthy appearing Constitutional Narrative: Upper middle-aged, white male, appears older than stated age, currently resting comfortably on the ventilator on HD, family at bedside, dialysis nurse at bedside, currently appears comfortable HEENT head/scalp atraumatic and moist oral mucous membranes HEENT Narrative: ET tube in place Head and Scalp: normocephalic Eyes Eyes Narrative: Mild conjunctival pallor bilaterally, pupils are pinpoint due to fentanyl use Resp no use of accessory muscles Resp Narrative: Scattered rhonchi, remains on ventilator with minimal settings Auscultation: rhonchi; Negative for rales or wheezes Cardio regular rate, regular rhythm, S1 normal heart sound, S2 normal heart sound, no murmurs, no rub, no gallops and no clicks GI normal to inspection, nondistended, normoactive bowel sounds, soft to palpation and non-tender Extremity no clubbing, cyanosis or edema Extremity Narrative: Pedal pulses are 2+ Neuro Neuro Narrative: Spontaneously moves extremities Psych Psych Narrative: Unable to assess due to sedation and mechanical ventilation Assessment & Plan Assessment/Plan (1) HFrEF (heart failure with reduced ejection fraction): (2) Elevated troponin: (3) Acute hypoxic respiratory failure: (4) Acute metabolic acidosis: (5) LG (acute kidney injury): (6) Pulmonary vascular congestion: (7) Metabolic acidosis: PLAN: Plan Acute hypoxic respiratory failure secondary to severe pulmonary edema - Continue mechanical ventilation - Sputum culture pending due to secretions and patient being febrile -Continue empiric antibiotics -Continue spontaneous breathing trials -Continue pulmonary toilet as able -Chest x-ray shows no infiltrate Fever -Cultures are negative thus far -Sputum cultures pending - May be from atelectasis - Continue broad-spectrum antibiotics - Check lower extremity Dopplers - Patient is not currently receiving Precedex we will discontinue order Troponin elevation - Highly suspect related to demand ischemia from above -Echocardiogram from 06/27/2024 demonstrated EF of 35% with moderate mitral valve insufficiency and severe global hypokinesis of the LV Acute HFrEF - Global hypokinesis with no wall motion abnormality -EF 35% on echo from 06/27/2024 - Plan is to initiate goal-directed therapy as tolerated -Carvedilol 3.125 initiated today with possible initiation of isosorbide and hydralazine in the future - May need repeat echocardiogram and/or stress test to make sure that this is not ischemic in origin - Cardiology is following LG on CKD stage IV with concurrent metabolic acidosis - Suspect this is related to uncontrolled DM-2 - Continue intermittent HD per nephrology - Currently receiving dialysis today with the plans for removal of 2.5 L - Will need tunneled dialysis catheter but currently on hold due to low-grade temperature - Continue to monitor and transition to tunneled dialysis catheter when able Acute on chronic anemia - Hemoglobin was 6.0 on 06/28/2024 - Patient was transfused 3 units of packed red blood cells - Current hemoglobin is stable - Suspect related to volume overload - Monitor closely - EPO per nephrology Essential hypertension - Carvedilol per cardiology - Continue PRNs -May eventually need isosorbide and hydralazine for goal-directed therapy related to his heart failure - Had previously been on amlodipine and valsartan Thrombocytopenia - Currently 108,000 - Seems to be stabilizing but will continue to monitor with repeat CBC in a.m. -if further drop may need to evaluate for HIT DM-2 - Fasting blood sugar this morning was 105 - Continue SSI every 6 hours - Tube feeds are at goal and is on Nepro DVT/GI prophylaxis -continue subcu heparin twice daily - Continue Protonix 40 mg IV daily CODE STATUS -Full code Charges/Coding Visit Charges Inpatient E&M: 42002 Subs Hosp L2
--- NOTE | 2024-06-30 07:13 | PCM.PN.CARD ---
Subjective Subjective Patient seen and evaluated. Appears to be stable and following commands. Objective Data Vital Signs: Vital Signs Temp Pulse Resp BP Pulse Ox O2 Del Method O2 Flow Rate 99.9 F H 60 20 H 130/68 H 97 Mechanical Ventilator 40 06/30/24 07:00 06/30/24 07:00 06/30/24 07:00 06/30/24 07:00 06/30/24 07:00 06/30/24 07:00 06/27/24 09:45 FiO2 25 06/30/24 07:00 Oxygen Flow Rate (L/min) 40 Oxygen Delivery Method Mechanical Ventilator Weight: 188 lb 11.451 oz Body Mass Index (BMI) 27.8 Intake & Output: Intake and Output for Last 24 Hours 06/28/24 06/29/24 06/30/24 23:59 23:59 23:59 Intake Total 1210.05 / 1255.75 1821.17 / 1866.37 179.57 / 179.57 Output Total 3080 / 3205 695 / 1045 750 / 750 Balance -1869.95 / -1949.25 1126.17 / 821.37 -570.43 / -570.43 Lab / Micro Data 06/30/24 03:32 06/30/24 04:53 Labs: Laboratory Results - last 24 hr 06/29/24 11:14: POC Glucose 100 06/29/24 13:31: POC Glucose 122 H 06/29/24 17:22: POC Glucose 121 H 06/29/24 21:38: POC Glucose 108 H 06/30/24 03:32: WBC 7.4, RBC 2.97 L, Hgb 8.6 L, Hct 26.2 L, MCV 88.2, MCH 29.0, MCHC 32.8, RDW Std Deviation 49.7 H, RDW Coeff of Hallie 15.4 H, Plt Count 108 L, MPV 11.6, Immature Gran % (Auto) 0.400, Neut % (Auto) 75.8 H, Lymph % (Auto) 8.1 L, [place] % (Auto) 7.7, Eos % (Auto) 7.5 H, Baso % (Auto) 0.5, Absolute Neuts (auto) 5.6, Absolute Lymphs (auto) 0.60 L, Nucleated RBC % 0 06/30/24 04:53: Sodium 139, Potassium 3.7, Chloride 107, Carbon Dioxide 15.7 L, Anion Gap 17 H, BUN 55 H, Creatinine 7.66 H*, Estim Creat Clear Calc 10.42 L, Est GFR (MDRD) Non-Af 7 L, BUN/Creatinine Ratio 7.1 L, Glucose 105 H, Calcium 7.4 L 06/30/24 05:50: POC Glucose 105 Micro: Microbiology 06/27/24 14:15 Sputum, Induced/Lukens Gram Stain - Final 06/27/24 14:15 Sputum, Induced/Lukens Respiratory Culture - Final Mixed normal respiratory michael. No Streptococcus pneumoniae, beta-hemolytic Streptococcus or Staphylococcus aureus isolated. 06/27/24 05:55 Blood Culture (Wb) - Left Forearm Blood Culture - Preliminary No growth in 48 hours. 06/27/24 05:40 Blood Culture (Wb) - Anticubital Left Blood Culture - Preliminary No growth in 48 hours. Rhythm Strip Rhythm Strip: Sinus Rhythm Rate: 90 Ectopy: None Cardiology Labs/Tests 06/30/24 03:32: WBC 7.4, RBC 2.97 L, Hgb 8.6 L, Hct 26.2 L, MCV 88.2, MCH 29.0, MCHC 32.8, Plt Count 108 L, MPV 11.6, Immature Gran % (Auto) 0.400, Neut % (Auto) 75.8 H, Lymph % (Auto) 8.1 L, [place] % (Auto) 7.7, Eos % (Auto) 7.5 H, Baso % (Auto) 0.5, Absolute Neuts (auto) 5.6, Nucleated RBC % 0 06/30/24 04:53: Sodium 139, Potassium 3.7, Chloride 107, Carbon Dioxide 15.7 L, Anion Gap 17 H, BUN 55 H, Creatinine 7.66 H*, Est GFR (MDRD) Non-Af 7 L, BUN/Creatinine Ratio 7.1 L, Glucose 105 H, Calcium 7.4 L Rhythm: EKG: ECHO: Stress Test: Cardiac Cath: PCI: CT Surgery: Holter monitor: EPS: PPM: CXR: Chest CT Scan: Physical Exam Const alert, oriented x3 and no apparent distress Constitutional Narrative: Intubated General Appearance: cooperative HEENT hearing grossly normal bilaterally Head and Scalp: atraumatic Eyes EOMs intact bilaterally Neck General: normal visual inspection Chest inspection of chest normal and palpation of chest normal Resp normal respiratory effort Auscultation: clear to auscultation bilaterally Cardio regular rate, regular rhythm, S1 normal heart sound and S2 normal heart sound Jugular Venous Distention: JVD GI normal to inspection, nondistended, normoactive bowel sounds Extremity normal capillary refill and no pedal edema Peripheral Pulses: Yes pulses 2+ throughout and femoral pulses present Skin no rashes or lesions noted Neuro oriented x3 and CN's II-XII intact bilaterally Psych Appearance: grossly normal and appropriate Assessment & Plan Assessment/Plan (1) HFrEF (heart failure with reduced ejection fraction): PLAN: Patient presents with heart failure with reduced ejection fraction. He is currently undergoing hemodialysis. His estimated ejection fraction is noted to be 35%. He will undergo guideline directed medical care and therapies as tolerated. At the appropriate time he may need to have a repeat echocardiogram or stress test to make sure that this is not ischemic in origin. (2) HTN (hypertension): QUALIFIERS: Hypertension type: primary hypertension Qualified Code(s): I10 - Essential (primary) hypertension PLAN: Blood pressure appears to be under good control at this time Continue current medical therapy with no major changes. Will start carvedilol 3.125 mg twice a day. Eventually may need isosorbide and hydralazine
--- NOTE | 2024-06-30 07:22 | PCM.PN.INT ---
Assessment & Plan Assessment/Plan (1) Acute hypoxic respiratory failure: (2) Acute metabolic acidosis: (3) LG (acute kidney injury): (4) Elevated troponin: PLAN: Plan RECOMMENDATIONS: 1. Continue assist-control mode mechanical ventilation. 2. Await tunneled dialysis catheter placement per general surgery. 3. Obtain repeat sputum cultures and chest x-ray. In the interim, continue empiric antibiotics. 4. Continue propofol and fentanyl for sedation. 5. Given low-grade fevers, will obtain lower extremity Doppler study. 6. Ongoing dialysis support per nephrology recommendations. 7. Continue appropriate ICU prophylaxis along with tube feeding for nutritional support. IMPRESSIONS: 1. Acute on chronic kidney disease with concurrent metabolic acidosis Likely secondary to progressive chronic kidney disease in the setting of diabetes mellitus with history of proteinuria. Nephrology is currently following to assist with ongoing hemodialysis needs. There are tentative plans to proceed with tunneled dialysis catheter placement. I do suspect that his low-grade fevers may be secondary to underlying atelectasis. Blood and sputum cultures to date have not demonstrated any growth. Chest imaging fails to demonstrate any findings concerning for underlying pneumonia. Given his low-grade fevers, will obtain repeat sputum culture and lower extremity Doppler study. 2. Acute hypoxemic respiratory failure Secondary to pulmonary edema in the setting of progressive kidney disease, hypervolemia and hypertension. Anticipate improvement with volume optimization via hemodialysis. Given these endotracheal tube secretions noted over the weekend, will send a repeat sputum culture. In the interim, empiric antibiotics will be continued. Recommend ongoing volume optimization with hemodialysis. 3. Troponin elevation Clinical concern for underlying demand ischemia in the setting of numbers 1 and 2. Continue current supportive care. 4. History of hypertension/diabetes mellitus/chronic back pain Complicates care, management, recovery and prognosis. Continue supportive care as noted above. Continue tube feeding for nutritional support. TIME: 33 minutes of critical care time, independent of procedures, was spent addressing the patient's acute on chronic kidney disease with concurrent metabolic acidosis, acute hypoxemic respiratory failure, troponin elevation, review of all data and collaboration with the care team. Subjective Subjective The patient was seen and examined at the bedside this morning. Events from the last 24 hours have been reviewed. The patient currently has a low-grade fever but remains otherwise hemodynamically stable on assist-control mode mechanical ventilation with an FiO2 requirement of 25% and PEEP of 5. White blood cell count is normal. The patient has been tolerant of dialysis. The patient remains sedated on propofol and fentanyl. Chest imaging continues to demonstrate no evidence for focal consolidation other than bibasilar atelectasis. Objective Data Objective Data The patient's most recent lab work, culture data and imaging studies have all been personally reviewed. Neither blood nor sputum cultures have demonstrated any growth to date. Vital Signs: Vital Signs Temp Pulse Resp BP Pulse Ox O2 Del Method O2 Flow Rate 99.9 F H 60 20 H 130/68 H 97 Mechanical Ventilator 40 06/30/24 07:00 06/30/24 07:00 06/30/24 07:00 06/30/24 07:00 06/30/24 07:00 06/30/24 07:00 06/27/24 09:45 FiO2 25 06/30/24 07:00 Oxygen Flow Rate (L/min) 40 Oxygen Delivery Method Mechanical Ventilator Weight: 188 lb 11.451 oz Body Mass Index (BMI) 27.8 Intake & Output: Intake and Output for Last 24 Hours 06/28/24 06/29/24 06/30/24 23:59 23:59 23:59 Intake Total 1210.05 / 1255.75 1821.17 / 1866.37 179.57 / 179.57 Output Total 3080 / 3205 695 / 1045 750 / 750 Balance -1869.95 / -1949.25 1126.17 / 821.37 -570.43 / -570.43 Lab / Micro Data Attestation: I reviewed the patient's lab results. 06/30/24 03:32 06/30/24 04:53 Labs: Laboratory Results - last 24 hr 06/29/24 11:14: POC Glucose 100 06/29/24 13:31: POC Glucose 122 H 06/29/24 17:22: POC Glucose 121 H 06/29/24 21:38: POC Glucose 108 H 06/30/24 03:32: WBC 7.4, RBC 2.97 L, Hgb 8.6 L, Hct 26.2 L, MCV 88.2, MCH 29.0, MCHC 32.8, RDW Std Deviation 49.7 H, RDW Coeff of Hallie 15.4 H, Plt Count 108 L, MPV 11.6, Immature Gran % (Auto) 0.400, Neut % (Auto) 75.8 H, Lymph % (Auto) 8.1 L, [place] % (Auto) 7.7, Eos % (Auto) 7.5 H, Baso % (Auto) 0.5, Absolute Neuts (auto) 5.6, Absolute Lymphs (auto) 0.60 L, Nucleated RBC % 0 06/30/24 04:53: Sodium 139, Potassium 3.7, Chloride 107, Carbon Dioxide 15.7 L, Anion Gap 17 H, BUN 55 H, Creatinine 7.66 H*, Estim Creat Clear Calc 10.42 L, Est GFR (MDRD) Non-Af 7 L, BUN/Creatinine Ratio 7.1 L, Glucose 105 H, Calcium 7.4 L 06/30/24 05:50: POC Glucose 105 Micro: Microbiology 06/27/24 14:15 Sputum, Induced/Lukens Gram Stain - Final 06/27/24 14:15 Sputum, Induced/Lukens Respiratory Culture - Final Mixed normal respiratory michael. No Streptococcus pneumoniae, beta-hemolytic Streptococcus or Staphylococcus aureus isolated. 06/27/24 05:55 Blood Culture (Wb) - Left Forearm Blood Culture - Preliminary No growth in 48 hours. 06/27/24 05:40 Blood Culture (Wb) - Anticubital Left Blood Culture - Preliminary No growth in 48 hours. Rhythm Strip Rhythm Strip: Sinus Rhythm Rate: 90 Ectopy: None Physical Exam Const Constitutional Narrative: Intubated, sedated and mechanically ventilated. HEENT normocephalic and head/scalp atraumatic Mouth: endotracheal tube in place and OG tube in place Eyes PERRL, EOMs intact bilaterally and conjunctivae normal Neck supple General: trachea midline and CVC in place Chest inspection of chest normal Resp normal respiratory effort Auscultation: diminished lung sounds; Negative for rales, rhonchi or wheezes Cardio regular rate, regular rhythm, S1 normal heart sound and S2 normal heart sound GI soft to palpation and non-tender Extremity General Extremity: edema; Negative for clubbing Skin no rashes or lesions noted Neuro Neuro Narrative: Alert and interactive. Sensorium / Orientation: sedated on vent Charges/Coding Procedures Hospitalists Procedures: 00730 Critical Care 1st Hr
--- NOTE | 2024-06-30 07:26 | PN.SURG_ITS ---
Subjective Subjective Patient is still febrile Objective Data Objective Data Vital Signs: Vital Signs Temp Pulse Resp BP Pulse Ox O2 Del Method O2 Flow Rate 99.9 F H 60 20 H 130/68 H 97 Mechanical Ventilator 40 06/30/24 07:00 06/30/24 07:00 06/30/24 07:00 06/30/24 07:00 06/30/24 07:00 06/30/24 07:00 06/27/24 09:45 FiO2 25 06/30/24 07:00 Oxygen Flow Rate (L/min) 40 Oxygen Delivery Method Mechanical Ventilator Weight: 188 lb 11.451 oz Body Mass Index (BMI) 27.8 Intake & Output: Intake and Output for Last 24 Hours 06/28/24 06/29/24 06/30/24 23:59 23:59 23:59 Intake Total 1210.05 / 1255.75 1821.17 / 1866.37 179.57 / 179.57 Output Total 3080 / 3205 695 / 1045 750 / 750 Balance -1869.95 / -1949.25 1126.17 / 821.37 -570.43 / -570.43 Lab / Micro Data 06/30/24 03:32 06/30/24 04:53 Labs: Laboratory Results - last 24 hr 06/29/24 11:14: POC Glucose 100 06/29/24 13:31: POC Glucose 122 H 06/29/24 17:22: POC Glucose 121 H 06/29/24 21:38: POC Glucose 108 H 06/30/24 03:32: WBC 7.4, RBC 2.97 L, Hgb 8.6 L, Hct 26.2 L, MCV 88.2, MCH 29.0, MCHC 32.8, RDW Std Deviation 49.7 H, RDW Coeff of Hallie 15.4 H, Plt Count 108 L, MPV 11.6, Immature Gran % (Auto) 0.400, Neut % (Auto) 75.8 H, Lymph % (Auto) 8.1 L, [place] % (Auto) 7.7, Eos % (Auto) 7.5 H, Baso % (Auto) 0.5, Absolute Neuts (auto) 5.6, Absolute Lymphs (auto) 0.60 L, Nucleated RBC % 0 06/30/24 04:53: Sodium 139, Potassium 3.7, Chloride 107, Carbon Dioxide 15.7 L, Anion Gap 17 H, BUN 55 H, Creatinine 7.66 H*, Estim Creat Clear Calc 10.42 L, E st GFR (MDRD) Non-Af 7 L, BUN/Creatinine Ratio 7.1 L, Glucose 105 H, Calcium 7.4 L 06/30/24 05:50: POC Glucose 105 Micro: Microbiology 06/27/24 14:15 Sputum, Induced/Lukens Gram Stain - Final 06/27/24 14:15 Sputum, Induced/Lukens Respiratory Culture - Final Mixed normal respiratory michael. No Streptococcus pneumoniae, beta-hemolytic Streptococcus or Staphylococcus aureus isolated. 06/27/24 05:55 Blood Culture (Wb) - Left Forearm Blood Culture - Preliminary No growth in 48 hours. 06/27/24 05:40 Blood Culture (Wb) - Anticubital Left Blood Culture - Preliminary No growth in 48 hours. Rhythm Strip Rhythm Strip: Sinus Rhythm Rate: 90 Ectopy: None Physical Exam Const no apparent distress Cardio regular rate and regular rhythm GI soft to palpation and non-tender Assessment & Plan Assessment/Plan (1) LG (acute kidney injury): PLAN: I am going to delay his surgery from this morning. Patient is still febrile with an unknown source. White count is normal. Blood cultures have been negative. Patient remains intubated. Patient is going to receive dialysis this morning. I will plan to tunnel his catheter later this week after he is afebrile. Frnaklin Edge MD Pager: [facility] [address] [place] [address], [address] [place] [address] Office:
--- NOTE | 2024-06-30 08:15 | VDLE_ITS ---
Reason For Study Reason For Study: Bilateral leg swelling RIGHT LEFT GSV is normal. GSV is normal. CFV is compressible, spontaneous, phasic, competent CFV is compressible, spontaneous, phasic, competent, and demonstrates normal augmentation. and demonstrates normal augmentation. FV is compressible, spontaneous, phasic, competent FV is compressible, spontaneous, phasic, competent and demonstrates normal augmentation. and demonstrates normal augmentation. POP V is compressible, spontaneous, phasic, competent POP V is compressible, spontaneous, phasic, competent and demonstrates normal augmentation. and demonstrates normal augmentation. T/P Trunk is compressible. T/P Trunk is compressible. PTV is compressible. PTV is compressible. RT PerV is compressible. LT PerV is compressible. Procedure This is a venous duplex using B-mode, color flow and spectral Doppler. Exam performed portable in ICU/CCU. A preliminary report was called and/or faxed to [facility]. VL/Venous Duplex US - Jamie Extrem Interpretation Summary Deep veins of the bilateral lower extremities are patent and compressible segme ntally. There is no evidence of bilateral lower extremity deep vein thrombosis. The bilateral great saphenous veins appea r patent and compressible segmentally. Ordering Physician: Milagros Beebe Referring Physician: Karlos Trejo M.D. Performed By: Iveth Sanchez RVT
[2024-06-30] MEDS: 0.9% Normal Saline 1,000 ML IV.SOLN. 1000 ML OPERA.SITE (08:28)
[2024-06-30] MEDS: PureFlow B 3K Dialysis Soln 1 BAG 6 BAG PF (08:28)
[2024-06-30] MEDS: 0.9% Saline Lock 10 ML Syringe IV (08:28)
--- NOTE | 2024-06-30 08:52 | RAD_ITS ---
PROCEDURE: CHEST 1 VIEW (PORTABLE) 06/30/2024 REASON FOR EXAM: RESPIRATORY FAILURE TECHNIQUE: Frontal view of the chest. COMPARISON: Chest radiograph 06/28/2024. FINDINGS: Hardware: Stable endotracheal and gastric tubes. Right IJ central venous catheter with the tip overlying the expected region of the SVC. Heart: Cardiac and mediastinal contours are stable. Lungs: Small bilateral pleural effusions. Bibasilar atelectasis. No pneumothorax. Bones: Degenerative changes are identified within the thoracic spine. Other: The patient is slightly rotated. RAD/Chest 1 View (Portable) IMPRESSION: Stable support devices as described. Small bilateral pleural effusions and ate lectasis. Reading Location: [id number]
[2024-06-30 09:37] LABS: Procalcitonin 3.21 ng/mL (<=0.10)
[2024-06-30] MEDS: Heparin 10,000 UNITS/10 ML Vial IV (12:08)
[2024-06-30] MEDS: Carvedilol 3.125 MG TABLET PO (12:15)
[2024-06-30] MEDS: Cefepime HCl 0.5 GM in 0.9% Normal Saline (50mL Bag) 50 ML IV (12:15)
[2024-06-30] MEDS: Chlorhexidine 15 ML PO ×2 (12:18→20:17)
[2024-06-30] MEDS: Heparin Injection (Vial) 5,000 UNIT/ML VIAL 5000 UNIT SC ×2 (12:19→23:04)
[2024-06-30] MEDS: Acetaminophen 650 MG/20 ML UDC GT ×2 (12:40→18:03)
[2024-06-30] MEDS: Propofol 10MG/Ml 1,000 MG/100 ML Bottle 15.2 MG CONT INF ×2 (12:40→18:04)
[2024-06-30] MEDS: Pantoprazole Sodium 40 MG in 0.9% Normal Saline (100mL MB+) 100 ML 330 MG IV (12:53)
[2024-06-30 12:54] LABS: Bedside Glucose 123 mg/dL (74-106)
--- NOTE | 2024-06-30 12:56 | CHAPLAIN ---
Type of Pastoral Visit ___ Initial Visit _x__ Follow-up Visit ___ On-call Visit ___ General Patient Visit ___ Spiritual Assessment ___ Family Conference ___ Bereavement ___ Rapid Response ___ Code Blue ___ Other (describe below) Pastoral Care Referral From ___ Patient _x__ Family ___ Nurse ___ Physician ___ Elastic Assembler ___ Molder Punch ___ Other (describe below) Sacrament/Intervention _x__ Active listening ___ Anointing ___ Mormon ___ Bereavement ___ Communion ___ Gabriela exploration ___ ___ Life review _x__ Prayer ___ Reconciliation ___ Sacrament of Sick _x__ Supportive presence ___ Wedding ___ Other (describe below) Pastoral Comments patient remains intubated and is receiving dialysis now; spouse is again in the room and is offered presence and supportive listening; asked questions of spouse and she talks about her feelings, the past when other family members were very ill, 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
--- NOTE | 2024-06-30 13:33 | PCM.RX.CS ---
Consult Antibiotic Management Pharmacy has been consulted to manage selected antibiotic: Vancomycin Type of Intervention Type of Consult: Follow-up Labs Labs: Sodium 139 mmol/L (133-145) 06/30/24 04:53 Potassium 3.7 mmol/L (3.3-5.1) 06/30/24 04:53 Chloride 107 mmol/L (98-108) 06/30/24 04:53 Carbon Dioxide 15.7 mmol/L (21.0-32.0) L 06/30/24 04:53 Anion Gap 17 (5-15) H 06/30/24 04:53 BUN 55 mg/dL (4-19) H 06/30/24 04:53 Creatinine 7.66 mg/dL (0.70-1.20) H* 06/30/24 04:53 Est GFR (MDRD) Non-Af 7 (>60) L 06/30/24 04:53 BUN/Creatinine Ratio 7.1 RATIO (10-20) L 06/30/24 04:53 Glucose 105 mg/dL (70-99) H 06/30/24 04:53 Microbiology Microbiology: Microbiology 06/30/24 10:30 Nasal Secretion MRSA (PCR) - Final 06/27/24 14:15 Sputum, Induced/Lukens Gram Stain - Final 06/27/24 14:15 Sputum, Induced/Lukens Respiratory Culture - Final Mixed normal respiratory michael. No Streptococcus pneumoniae, beta-hemolytic Streptococcus or Staphylococcus aureus isolated. 06/27/24 05:55 Blood Culture (Wb) - Left Forearm Blood Culture - Preliminary No growth in 48 hours. 06/27/24 05:40 Blood Culture (Wb) - Anticubital Left Blood Culture - Preliminary No growth in 48 hours. Pharmacy Plan for Drug Dosing Pharmacy Plan for Drug Dosing: DAILY ASSESSMENT Current Vancomycin Dose: Dose per pt levels/ HD schedule Number of Doses Received: 1 (initial dose of 1250mg IV x1) Current Renal Function: on hemodialysis. Per nursing, pt not on a set schedule for treatment as of yet. Renal Function Trend: n/a Any Change in Vanc Plan: patient is ordered to have HD tx session today. Once HD completed, will administer vancomycin 500mg IV x1 per protocol. No HD schedule has been established yet per nursing. Pharmacy will continue to call daily to see when next HD treatment is so a trough can get drawn. Note: The patient will be due for a trough prior to the next HD session. Pending Level: none scheduled, pharmacy will call daily and check HD status Pharmacy Service will continue to monitor and adjust dosing as required.
--- NOTE | 2024-06-30 14:31 | PCM.PN.REN ---
Subjective Subjective Patient remains intubated. No overnight events. Patient tolerated hemodialysis today with around 3.2 L fluid removal. Objective Data Objective Data Vital Signs: Vital Signs Temp Pulse Resp BP Pulse Ox O2 Del Method O2 Flow Rate 100.4 F H 73 14 141/58 H 96 Mechanical Ventilator 40 06/30/24 12:34 06/30/24 13:00 06/30/24 13:00 06/30/24 13:00 06/30/24 13:00 06/30/24 13:00 06/27/24 09:45 FiO2 25 06/30/24 13:00 Oxygen Flow Rate (L/min) 40 Oxygen Delivery Method Mechanical Ventilator Weight: 82.4 kg Body Mass Index (BMI) 26.9 Intake & Output: Intake and Output for Last 24 Hours 06/28/24 06/29/24 06/30/24 23:59 23:59 23:59 Intake Total 1210.05 / 1255.75 1821.17 / 1866.37 500.77 / 500.77 Output Total 3080 / 3205 695 / 1045 4160 / 4160 Balance -1869.95 / -1949.25 1126.17 / 821.37 -3659.23 / -3659.23 Lab / Micro Data 06/30/24 03:32 06/30/24 04:53 Labs: Laboratory Results - last 24 hr 06/29/24 17:22: POC Glucose 121 H 06/29/24 21:38: POC Glucose 108 H 06/30/24 03:32: WBC 7.4, RBC 2.97 L, Hgb 8.6 L, Hct 26.2 L, MCV 88.2, MCH 29.0, MCHC 32.8, RDW Std Deviation 49.7 H, RDW Coeff of Hallie 15.4 H, Plt Count 108 L, MPV 11.6, Immature Gran % (Auto) 0.400, Neut % (Auto) 75.8 H, Lymph % (Auto) 8.1 L, [place] % (Auto) 7.7, Eos % (Auto) 7.5 H, Baso % (Auto) 0.5, Absolute Neuts (auto) 5.6, Absolute Lymphs (auto) 0.60 L, Nucleated RBC % 0 06/30/24 04:53: Sodium 139, Potassium 3.7, Chloride 107, Carbon Dioxide 15.7 L, Anion Gap 17 H, BUN 55 H, Creatinine 7.66 H*, Estim Creat Clear Calc 10.42 L, Est GFR (MDRD) Non-Af 7 L, BUN/Creatinine Ratio 7.1 L, Glucose 105 H, Calcium 7.4 L, Procalcitonin 3.21 H 06/30/24 05:50: POC Glucose 105 06/30/24 12:25: POC Glucose 123 H Micro: Microbiology 06/30/24 10:30 Nasal Secretion MRSA (PCR) - Final 06/27/24 14:15 Sputum, Induced/Lukens Gram Stain - Final 06/27/24 14:15 Sputum, Induced/Lukens Respiratory Culture - Final Mixed normal respiratory michael. No Streptococcus pneumoniae, beta-hemolytic Streptococcus or Staphylococcus aureus isolated. 06/27/24 05:55 Blood Culture (Wb) - Left Forearm Blood Culture - Preliminary No growth in 48 hours. 06/27/24 05:40 Blood Culture (Wb) - Anticubital Left Blood Culture - Preliminary No growth in 48 hours. Radiography Diagnostic Testing: Radiology Impression Chest X-Ray 06/30/24 08:52 IMPRESSION: Stable support devices as described. Small bilateral pleural effusions and atelectasis. Reading Location: [facility] Rhythm Strip Rhythm Strip: Sinus Rhythm Rate: 90 Ectopy: None Physical Exam Narrative Intubated. No acute distress noted S1, S2, RRR Breath sounds clear anteriorly Abdomen soft Nonpitting edema bilateral lower legs Temporary hemodialysis catheter dressing clean, dry and Assessment & Plan Assessment/Plan (1) LG (acute kidney injury): (2) CKD (chronic kidney disease) stage 4, GFR 15-29 ml/min: (3) Acute metabolic acidosis: (4) Acute hypoxic respiratory failure: PLAN: Plan Assessment/Plan: The patient is a 64-year-old male with past history of CKD stage G4, type 2 diabetes mellitus, and hypertension. Patient presents to the hospital with acute hypoxic respiratory failure. Checks x-ray shows bilateral pleural effusion with pulmonary vascular congestion. He was also found to have severe renal dysfunction with creatinine of 9.20 mg/dL and severe acute metabolic acidosis with bicarbonate level of 9 mmol/L. Nephrology is asked to see the patient because of LG on CKD. - Acute kidney injury on chronic kidney disease stage G4. Patient has known CKD. Serum creatinine was already 3.53 mg/dL, EGFR 28 mL/min on 02/28/2022. Patient had 2+ proteinuria in February 2022 as well. Urine albumin to creatinine ratio was already 9.8 g/g at that time. Suspicion is progression of CKD which is likely due to diabetic kidney disease given prior history of proteinuria; now ESRD First HD June 27, patient dialyzed again on 06/28 with 1.8 L fluid removal. Patient underwent hemodialysis today with 3.2 L fluid removal. Patient does have urine output, so far today almost 1L Surgery team consulted for tunneled hemodialysis catheter placement, on hold today due to low grade fever. White count normal. Blood cultures drawn 06/27 so far no growth to date. Case management team to arrange for outpatient hemodialysis, dx: ESRD - Acute metabolic acidosis. Patient presented with serum bicarbonate level of 9 mmol/L. Metabolic acidosis was likely due to LG on CKD. Patient denies diarrhea. Hemodialysis will help control acidosis without giving him more volume with sodium bicarbonate particularly since he is already volume overloaded. - Acute hypoxic respiratory failure. On vent assessment and plan reviewed with Dr. Rush.
[2024-06-30] MEDS: NEPRO 1,000 ML 45 ML GT (16:07)
[2024-06-30] MEDS: fentaNYL drip 100 ML 5 MCG CONT INF (16:07)
[2024-06-30] MEDS: Vancomycin IV 500 MG/100 ML BAG 100 MG IV (17:58)
[2024-06-30 18:19] LABS: Bedside Glucose 97 mg/dL (74-106)
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
[2024-06-30] MEDS: Polyethylene Glycol 3350 17 GM PACKET PO (23:03)
[2024-06-30] MEDS: CHLORHEXIDINE GLUC 2% CLOTH 1 EACH TOWELETTE TOPICAL (23:03)
[2024-07-01] VITALS (42 sets, daily range): BP systolic 104–159; BP diastolic 45–90; PULSE 46–77; RESP 10–27; TEMP 37.5–38.5; O2SAT 94–100; BMI 27.1
[2024-07-01] MEDS: Propofol 10MG/Ml 1,000 MG/100 ML Bottle 15.2 MG CONT INF ×2 (00:47→06:50)
[2024-07-01 01:16] LABS: Bedside Glucose 85 mg/dL (74-106)
[2024-07-01 04:19] LABS: Absolute Lymphocyte Count 0.63 X10^3/uL (0.83-4.51); Absolute Neutrophil Count 5.6 X10^3/uL (2.0-7.7); Basophil# 0.02 X10^3/uL; Basophil% 0.3 % (0-1); Eosinophil# 0.84 X10^3/uL; Eosinophils% 10.5 % (0-5); Hematocrit 17.3 % (40-54); Lymphocyte # 0.63 X10^3/ul (0.83-4.51); Lymphocyte % 7.9 % (19-41); Mean Corp Hgb Conc 32.4 g/dL (32-36); Mean Corpuscular Volume 89.6 fL (80-94); Mean Platelet Vol. 11.9 fl (6.2-12.0); Monocyte# 0.89 X10^3/uL; Monocyte% 11.2 % (0-10); NRBC Flagged by Analyzer 0 % (0-5); Neutrophil # 5.55 X10^3/uL (2.7-7.7); Neutrophil % 69.5 % (47-70); POSITIVE COUNT YES; Platelet Count 141 K/mm3 (150-450); RBC Distribution Width CV 15.5 % (11.6-14.6); RBC Distribution Width SD 50.3 fl (35.1-43.9); Red Blood Count 1.93 M/mm3 (4.6-6.2)
[2024-07-01 04:30] LABS: Hemoglobin 5.6 g/dL (13.0-16.5)
[2024-07-01 04:38] LABS: AST(SGOT) 18 U/L (<=37); Alanine Aminotransfer ALT/SGPT 17 U/L (<=46); Albumin, Serum 2.8 g/dL (3.4-4.8); Alkaline Phosphatase 177 U/L (40-129); Anion Gap 15 (5-15); BUN 49 mg/dL (4-19); BUN/Creat Ratio 7.7 RATIO (10-20); Calcium,Total 7.7 mg/dL (7.6-11.0); Carbon Dioxide 19.6 mmol/L (21.0-32.0); Chloride 103 mmol/L (98-108); Creatinine, Serum 6.29 mg/dL (0.70-1.20); EST Glomerular Filtration Rate 9 (>60); Estimated Creatinine Clearance 11.71 ml/min (50-250); Globulin 2.9 g/dL (2.2-4.2); Glucose 120 mg/dL (70-99); Magnesium 1.8 mg/dL (1.5-2.2); Phosphorus 5.5 mg/dL (2.7-4.5); Potassium 3.5 mmol/L (3.3-5.1); Protein, Total 5.7 g/dL (5.9-8.4); Sodium Level 137 mmol/L (133-145)
--- NOTE | 2024-07-01 04:55 | CT_ITS ---
PROCEDURE: ABDOMEN/PELVIS WITHOUT CONT 07/01/2024 REASON FOR EXAM: DROP IN HGB WITH NO OBCIOUS SOURCE OF BLEEDING TECHNIQUE: Abdomen and pelvis CT without intravenous contrast. Noncontrast technique limits evaluation of the abdominal and pelvic viscera. Coronal and Sagittal reconstruction series were provided. One or more dose reduction techniques were used (e.g., Automated exposure control, adjustment of the mA and/or kV according to patient size, use of iterative reconstruction technique). PATIENT PREPARATION: Per protocol ORAL CONTRAST TYPE: None. FINDINGS: Partially imaged three-vessel moderate to heavy appearing coronary calcification. A couple thin areas of pericardial calcification. Partially imaged bilateral left larger appearing than right pleural effusions with associated adjacent partial imaged passive collapse, atelectasis. The heart is shifted to the right. Appearance of the liver suggesting cirrhosis, clinically correlate. The adrenal glands, gallbladder, pancreas and spleen appear within limits. Small low-density focus posterior spleen axial 58 is nonspecific, possible cyst. Small nonobstructing left intrarenal stone. Bilateral symmetric appearing perinephric stranding without hydronephrosis. Aortoiliac atherosclerotic calcifications. Abdominal aorta appears within limits on noncontrast imaging. No evidence of retroperitoneal hemorrhage identified. Status post left herniorrhaphy. Nasogastric tube within the stomach. No bowel dilation or free air. Some liquid appearing material is seen in the distal and lower colon mixed with some fecal material may correlate for evidence of blood, nonspecific. No colonic wall thickening or pericolonic inflammatory change. A couple noninflamed colonic diverticula. Normal caliber appendix without secondary signs. Hart within a mostly collapsed bladder. Prostate appears enlarged. No free fluid seen. Lower lumbar spondylosis. CT/Abdomen/Pelvis without Cont IMPRESSION: Partially imaged bilateral left larger appearing than right pleural effusions w ith associated adjacent partial imaged passive collapse, atelectasis. Some liquid appearing material is seen in the distal and lower colon mixed with some fecal material may correlate for evidence of blood, nonspecific. No peritoneal free fluid seen. Partially imaged three-vessel moderate to heavy appearing coronary calcificatio n. Appearance of the liver suggesting cirrhosis, clinically correlate. Reading Location: [id number]
[2024-07-01] MEDS: 0.9% Saline Lock 10 ML Syringe IV ×2 (05:46→06:50)
--- NOTE | 2024-07-01 06:54 | PCM.PN.HOSP ---
Reason for Visit Reason for Visit: Shortness of breath Subjective Subjective No issues overnight. Still no bowel movement. Hemoglobin is down again below 6 so we will transfuse 3 units packed red blood cells. Still having intermittent fevers. Source remains unclear. Patient is currently on spontaneous breathing trial and seems to be doing quite well. Objective Data Objective Data Vital Signs: Vital Signs Temp Pulse Resp BP Pulse Ox O2 Del Method O2 Flow Rate 100.1 F H 53 L 20 H 104/45 L 95 Mechanical Ventilator 40 07/01/24 06:00 07/01/24 06:00 07/01/24 06:00 07/01/24 06:00 07/01/24 06:00 07/01/24 06:00 06/27/24 09:45 FiO2 25 07/01/24 06:00 Oxygen Flow Rate (L/min) 40 Oxygen Delivery Method Mechanical Ventilator Weight: 83.3 kg Body Mass Index (BMI) 27.1 Intake & Output: Intake and Output for Last 24 Hours 06/29/24 06/30/24 07/01/24 23:59 23:59 23:59 Intake Total 1821.17 / 1866.37 2277.94 / 2298.14 181.97 / 181.97 Output Total 695 / 1045 4295 / 4295 Balance 1126.17 / 821.37 -2017.1996.86 181.97 / 181.97 Lab / Micro Data 07/01/24 03:59 07/01/24 03:59 Labs: Laboratory Results - last 24 hr 06/30/24 04:53: Procalcitonin 3.21 H 06/30/24 12:25: POC Glucose 123 H 06/30/24 17:57: POC Glucose 97 06/30/24 23:00: POC Glucose 85 07/01/24 03:59: WBC 8.0, RBC 1.93 L, Hgb 5.6 L*, Hct 17.3 L, MCV 89.6, MCH 29.0, MCHC 32.4, RDW Std Deviation 50.3 H, RDW Coeff of Hallie 15.5 H, Plt Count 141 L, MPV 11.9, Immature Gran % (Auto) 0.600, Neut % (Auto) 69.5, Lymph % (Auto) 7.9 L, Drew % (Auto) 11.2 H, Eos % (Auto) 10.5 H, Baso % (Auto) 0.3, Absolute Neuts (auto) 5.6, Absolute Lymphs (auto) 0.63 L, Nucleated RBC % 0, Sodium 137, Potassium 3.5, Chloride 103, Carbon Dioxide 19.6 L, Anion Gap 15, BUN 49 H, Creatinine 6.29 H, Estim Creat Clear Calc 11.71 L, Est GFR (MDRD) Non-Af 9 L, BUN/Creatinine Ratio 7.7 L, Glucose 120 H, Calcium 7.7, Phosphorus 5.5 H, Magnesium 1.8, Total Bilirubin 0.30, AST 18, ALT 17, Alkaline Phosphatase 177 H, Total Protein 5.7 L, Albumin 2.8 L, Globulin 2.9, Albumin/Globulin Ratio 1.0 Micro: Microbiology 06/30/24 10:30 Nasal Secretion MRSA (PCR) - Final 06/27/24 14:15 Sputum, Induced/Lukens Gram Stain - Final 06/27/24 14:15 Sputum, Induced/Lukens Respiratory Culture - Final Mixed normal respiratory michael. No Streptococcus pneumoniae, beta-hemolytic Streptococcus or Staphylococcus aureus isolated. 06/27/24 05:55 Blood Culture (Wb) - Left Forearm Blood Culture - Preliminary No growth in 48 hours. 06/27/24 05:40 Blood Culture (Wb) - Anticubital Left Blood Culture - Preliminary No growth in 48 hours. Radiography Diagnostic Testing: Radiology Impression Venous Doppler Study 06/30/24 08:15 Interpretation Summary Deep veins of the bilateral lower extremities are patent and compressible segmentally. There is no evidence of bilateral lower extremity deep vein thrombosis. The bilateral great saphenous veins appear patent and compressible segmentally. Ordering Physician: Milagros Beebe Referring Physician: Karlos Trejo M.D. Performed By: Iveth Sanchez RVT Chest X-Ray 06/30/24 08:52 IMPRESSION: Stable support devices as described. Small bilateral pleural effusions and atelectasis. Reading Location: [facility] Abdomen/Pelvis CT 07/01/24 04:55 IMPRESSION: Partially imaged bilateral left larger appearing than right pleural effusions with associated adjacent partial imaged passive collapse, atelectasis. Some liquid appearing material is seen in the distal and lower colon mixed with some fecal material may correlate for evidence of blood, nonspecific. No peritoneal free fluid seen. Partially imaged three-vessel moderate to heavy appearing coronary calcification. Appearance of the liver suggesting cirrhosis, clinically correlate. Reading Location: [facility] Rhythm Strip Rhythm Strip: Sinus Rhythm Rate: 90 Ectopy: None Physical Exam Const alert, no apparent distress and average body habitus; Negative for healthy appearing Constitutional Narrative: Upper middle-aged, white male, appears older than stated age, currently resting comfortably on the ventilator on HD, awake and can follow simple commands consistently, currently appears comfortable General Appearance: intubated and patient mechanically ventilated HEENT normocephalic, head/scalp atraumatic and moist oral mucous membranes HEENT Narrative: ET tube and OG in place Resp normal respiratory effort, no retractions, no use of accessory muscles and clear to auscultation bilaterally Auscultation: Negative for crackles, rales, rhonchi or wheezes Cardio regular rate, regular rhythm, S1 normal heart sound, S2 normal heart sound, no murmurs, no rub, no gallops and no clicks GI normal to inspection, nondistended, normoactive bowel sounds, soft to palpation and non-tender Extremity no clubbing, cyanosis or edema Extremity Narrative: Pedal pulses are 2+ Neuro Neuro Narrative: Spontaneously moves extremities and follows commands fairly consistently Sensorium / Orientation: awake and alert Psych Psych Narrative: Unable to assess due to sedation and mechanical ventilation Appearance: intubated Assessment & Plan Assessment/Plan (1) HFrEF (heart failure with reduced ejection fraction): (2) Elevated troponin: (3) Acute hypoxic respiratory failure: (4) Acute metabolic acidosis: (5) LG (acute kidney injury): (6) Pulmonary vascular congestion: (7) Metabolic acidosis: PLAN: Plan Acute hypoxic respiratory failure secondary to severe pulmonary edema - Continue mechanical ventilation -Spontaneous breathing trial in progress and seems to be doing well -Would probably wait extubation to see if GI is going to do an EGD and/or colonoscopy due to his hemoglobin drop in the second time during his hospitalization - Sputum culture pending due to secretions and patient being febrile -Continue empiric antibiotics with cefepime and vancomycin -Repeat blood cultures urine cultures and sputum cultures are pending -Preliminary sputum is Staph aureus and it -Continue spontaneous breathing trials -Continue pulmonary toilet as able -Chest x-ray shows no infiltrate Staph aureus tracheobronchitis - Continue vancomycin and cefepime and await rest of cultures - Aggressive pulmonary toilet - No infiltrate noted on exam and auscultation is unremarkable Fever -Cultures are negative thus far -Sputum cultures show staph aureus - Continue broad-spectrum antibiotics while we are waiting for sensitivities on the rest of the cultures to finalize -Dopplers were negative - Patient is not currently receiving Precedex we will discontinue order Troponin elevation - Highly suspect related to demand ischemia from above -Echocardiogram from 06/27/2024 demonstrated EF of 35% with moderate mitral valve insufficiency and severe global hypokinesis of the LV Acute HFrEF - Global hypokinesis with no wall motion abnormality -EF 35% on echo from 06/27/2024 - Plan is to initiate goal-directed therapy as tolerated -Carvedilol 3.125 initiated 06/30/2024 but then discontinued due to some hemodynamic instability--> once more hemodynamically stable will need to restart Coreg and consider isosorbide and hydralazine in the future to optimize goal-directed therapy - May need repeat echocardiogram and/or stress test to make sure that this is not ischemic in origin - Cardiology is has been following and they plan to sign off today will need reevaluation LG on CKD stage IV with concurrent metabolic acidosis - Suspect this is related to uncontrolled DM-2 - Continue intermittent HD per nephrology - Will need tunneled dialysis catheter but currently on hold due to fevers - Continue to monitor and transition to tunneled dialysis catheter when able Acute on chronic anemia - Hemoglobin was 6.0 on 06/28/2024 - Patient was transfused 3 units of packed red blood cells -Hemoglobin down to 5.8 today--> will transfuse 3 units -Guaiac is pending but patient has not yet had a bowel movement -Consult GI--> no obvious signs of GI bleeding however CT scan did show possible blood in the colon - Monitor closely - EPO per nephrology - Hold subcu heparin for DVT prophylaxis and utilize SCDs Essential hypertension -Blood pressures have been somewhat labile so we will hold off on any antihypertensives or goal-directed therapy for heart failure at this time - Continue PRNs - Had previously been on amlodipine and valsartan Thrombocytopenia -Platelet count continues to trend up - Seems to be stabilizing but will continue to monitor with repeat CBC in a.m. #I am not sure why these are going through correctly. Thanks for catching it DM-2 - Fasting blood sugar this morning was 120 - Continue SSI every 6 hours - Tube feeds are at goal and is on Nepro DVT/GI prophylaxis -With drop in hemoglobin hold subcu heparin and add SCDs - Continue Protonix 40 mg IV daily CODE STATUS -Full code Charges/Coding Visit Charges Inpatient E&M: 70438 Subs Hosp L2
--- NOTE | 2024-07-01 07:15 | NURSING ---
Dr Trejo called in to ICU and ordered that the patient's sedation be placed on hold for an awakening trial. Respiratory therapy was notified to begin a spontaneous breathing trial when patient was able to maintain sustained alertness.
--- NOTE | 2024-07-01 07:20 | PN.CC_ITS ---
Assessment & Plan Assessment/Plan (1) Acute hypoxic respiratory failure: (2) Acute metabolic acidosis: (3) LG (acute kidney injury): (4) Elevated troponin: PLAN: Plan RECOMMENDATIONS: 1. Continue assist-control mode mechanical ventilation. 2. Plan for pressure support throughout the day, with transition back to assist-control for overnight support. 3. Gastroenterology consultation is pending. Transfuse blood products as ordered. Check H&H posttransfusion. 4. Continue empiric antibiotics, pending culture results. 5. Send autoimmune workup as ordered. 6. Tunneled dialysis catheter placement per general surgery. 7. Ongoing dialysis support per nephrology recommendations. 8. Continue appropriate ICU prophylaxis along with tube feeding for nutritional support. 9. Will consider potential extubation once gastroenterology workup has been completed. IMPRESSIONS: 1. Acute on chronic kidney disease with concurrent metabolic acidosis Likely secondary to progressive chronic kidney disease in the setting of diabetes mellitus with history of proteinuria. Nephrology is currently following to assist with ongoing hemodialysis needs. There are tentative plans to proceed with tunneled dialysis catheter placement. The patient continues to have low-grade fevers. Although no definitive evidence of pneumonia was noted on chest imaging, sputum culture is currently demonstrating growth of Staph aureus. Therefore, antibiotics will be continued. Ongoing dialysis support will be continued per nephrology recommendations. 2. Acute hypoxemic respiratory failure Improving. Secondary to pulmonary edema in the setting of progressive kidney disease, hypervolemia and hypertension. The patient's respiratory status has improved with hemodialysis. He does have a low-grade fever and is currently demonstrating growth of Staphylococcus aureus on sputum. Therefore, antibiotics will be continued. Given that the patient is significantly anemic, with gastroenterology consultation pending, we will hold off on extubation until GI workup has been completed. In the interim, however, the patient will be continued on pressure support throughout the day, with plans to transition back to assist-control for overnight support. 3. Troponin elevation Clinical concern for underlying demand ischemia in the setting of numbers 1 and 2. Continue current supportive care. 4. History of hypertension/diabetes mellitus/chronic back pain Complicates care, management, recovery and prognosis. Continue supportive care as noted above. Continue tube feeding for nutritional support. TIME: 34 minutes of critical care time, independent of procedures, was spent addressing the patient's acute on chronic kidney disease with concurrent metabolic acidosis, acute hypoxemic respiratory failure, troponin elevation, review of all data and collaboration with the care team. Subjective Subjective The patient was seen and examined at the bedside this morning. Events from the last 24 hours have been reviewed. The patient continues to have low-grade fevers but remains otherwise hemodynamically stable on assist-control mode mechanical ventilation with an FiO2 requirement of 25% and PEEP of 5. The patient tolerated dialysis yesterday. He is currently documented to be overall net -1.7 L for the hospitalization. White blood cell count remains normal. Unfortunately, hemoglobin has dropped to 5.6 g/dL. Objective Data Objective Data The patient's most recent lab work, culture data and imaging studies have all been personally reviewed. Preliminary sputum culture dated June 30 was positive for 3+ Staphylococcus aureus. Vital Signs: Vital Signs Temp Pulse Resp BP Pulse Ox O2 Del Method O2 Flow Rate 99.5 F H 47 L 20 H 106/45 L 98 Mechanical Ventilator 40 07/01/24 07:00 07/01/24 07:00 07/01/24 07:00 07/01/24 07:00 07/01/24 07:00 07/01/24 07:00 06/27/24 09:45 FiO2 07/01/24 07:00 Oxygen Flow Rate (L/min) 40 Oxygen Delivery Method Mechanical Ventilator Weight: 183 lb 10.321 oz Body Mass Index (BMI) 27.1 Intake & Output: Intake and Output for Last 24 Hours 06/29/24 06/30/24 07/01/24 23:59 23:59 23:59 Intake Total 1821.17 / 1866.37 2277.94 / 2298.14 662.00 / 662.00 Output Total 695 / 1045 4295 / 4295 Balance 1126.17 / 821.37 -2017..86 662.00 / 662.00 Lab / Micro Data Attestation: I reviewed the patient's lab results. 07/01/24 03:59 07/01/24 03:59 Labs: Laboratory Results - last 24 hr 06/30/24 04:53: Procalcitonin 3.21 H 06/30/24 12:25: POC Glucose 123 H 06/30/24 17:57: POC Glucose 97 06/30/24 23:00: POC Glucose 85 07/01/24 03:59: WBC 8.0, RBC 1.93 L, Hgb 5.6 L*, Hct 17.3 L, MCV 89.6, MCH 29.0, MCHC 32.4, RDW Std Deviation 50.3 H, RDW Coeff of Hallei 15.5 H, Plt Count 141 L, MPV 11.9, Immature Gran % (Auto) 0.600, Neut % (Auto) 69.5, Lymph % (Auto) 7.9 L , Wood % (Auto) 11.2 H, Eos % (Auto) 10.5 H, Baso % (Auto) 0.3, Absolute Neuts (auto) 5.6, Absolute Lymphs (auto) 0.63 L, Nucleated RBC % 0, Sodium 137, Potassium 3.5, Chloride 103, Carbon Dioxide 19.6 L, Anion Gap 15, BUN 49 H, C reatinine 6.29 H, Estim Creat Clear Calc 11.71 L, Est GFR (MDRD) Non-Af 9 L, B UN/Creatinine Ratio 7.7 L, Glucose 120 H, Calcium 7.7, Phosphorus 5.5 H, Magnesium 1.8, Total Bilirubin 0.30, AST 18, ALT 17, Alkaline Phosphatase 177 H, Total Protein 5.7 L, Albumin 2.8 L, Globulin 2.9, Albumin/Globulin Ratio 1.0 Micro: Microbiology 06/30/24 10:30 Nasal Secretion MRSA (PCR) - Final 06/27/24 14:15 Sputum, Induced/Lukens Gram Stain - Final 06/27/24 14:15 Sputum, Induced/Lukens Respiratory Culture - Final Mixed normal respiratory michael. No Streptococcus pneumoniae, beta-hemolytic Streptococcus or Staphylococcus aureus isolated. 06/27/24 05:55 Blood Culture (Wb) - Left Forearm Blood Culture - Preliminary No growth in 48 hours. 06/27/24 05:40 Blood Culture (Wb) - Anticubital Left Blood Culture - Preliminary No growth in 48 hours. Radiography Diagnostic Testing: Radiology Impression Venous Doppler Study 06/30/24 08:15 Interpretation Summary Deep veins of the bilateral lower extremities are patent and compressible segmentally. There is no evidence of bilateral lower extremity deep vein thrombosis. The bilateral great saphenous veins appear patent and compressible segmentally. Ordering Physician: Milagros Beebe Referring Physician: Karlos Trejo M.D. Performed By: Iveth Sanchez, RVT Chest X-Ray 06/30/24 08:52 IMPRESSION: Stable support devices as described. Small bilateral pleural effusions and atelectasis. Reading Location: [facility] Abdomen/Pelvis CT 07/01/24 04:55 IMPRESSION: Partially imaged bilateral left larger appearing than right pleural effusions with associated adjacent partial imaged passive collapse, atelectasis. Some liquid appearing material is seen in the distal and lower colon mixed with some fecal material may correlate for evidence of blood, nonspecific. No peritoneal free fluid seen. Partially imaged three-vessel moderate to heavy appearing coronary calcification. Appearance of the liver suggesting cirrhosis, clinically correlate. Reading Location: [facility] Rhythm Strip Rhythm Strip: Sinus Rhythm Rate: 90 Ectopy: None Physical Exam Const Constitutional Narrative: Remains intubated and mechanically ventilated. Currently tolerating pressure support trial. HEENT normocephalic and head/scalp atraumatic Mouth: endotracheal tube in place and OG tube in place Eyes PERRL, EOMs intact bilaterally and conjunctivae normal Neck supple General: trachea midline and CVC in place Chest inspection of chest normal Resp normal respiratory effort Auscultation: diminished lung sounds; Negative for rales, rhonchi or wheezes Cardio regular rate, regular rhythm, S1 normal heart sound and S2 normal heart sound GI soft to palpation and non-tender Extremity General Extremity: edema; Negative for clubbing Skin no rashes or lesions noted Neuro Neuro Narrative: Alert and interactive. Sensorium / Orientation: sedated on vent Charges/Coding Procedures Hospitalists Procedures: 94352 Critical Care 1st Hr
--- NOTE | 2024-07-01 07:36 | PN.CARD_ITS ---
Subjective Subjective Patient seen and evaluated doing well status quo Objective Data Vital Signs: Vital Signs Temp Pulse Resp BP Pulse Ox O2 Del Method O2 Flow Rate 99.5 F H 47 L 20 H 106/45 L 98 Mechanical Ventilator 40 07/01/24 07:00 07/01/24 07:00 07/01/24 07:00 07/01/24 07:00 07/01/24 07:00 07/01/24 07:00 06/27/24 09:45 FiO2 25 07/01/24 07:00 Oxygen Flow Rate (L/min) 40 Oxygen Delivery Method Mechanical Ventilator Weight: 183 lb 10.321 oz Body Mass Index (BMI) 27.1 Intake & Output: Intake and Output for Last 24 Hours 06/29/24 06/30/24 07/01/24 23:59 23:59 23:59 Intake Total 1821.17 / 1866.37 2277.94 / 2298.14 662.00 / 662.00 Output Total 695 / 1045 4295 / 4295 Balance 1126.17 / 821.37 -2016.1996.86 662.00 / 662.00 Lab / Micro Data 07/01/24 03:59 07/01/24 03:59 Labs: Laboratory Results - last 24 hr 06/30/24 04:53: Procalcitonin 3.21 H 06/30/24 12:25: POC Glucose 123 H 06/30/24 17:57: POC Glucose 97 06/30/24 23:00: POC Glucose 85 07/01/24 03:59: WBC 8.0, RBC 1.93 L, Hgb 5.6 L*, Hct 17.3 L, MCV 89.6, MCH 29.0, MCHC 32.4, RDW Std Deviation 50.3 H, RDW Coeff of Hallie 15.5 H, Plt Count 141 L, MPV 11.9, Immature Gran % (Auto) 0.600, Neut % (Auto) 69.5, Lymph % (Auto) 7.9 L , [place] % (Auto) 11.2 H, Eos % (Auto) 10.5 H, Baso % (Auto) 0.3, Absolute Neuts (auto) 5.6, Absolute Lymphs (auto) 0.63 L, Nucleated RBC % 0, Sodium 137, Potassium 3.5, Chloride 103, Carbon Dioxide 19.6 L, Anion Gap 15, BUN 49 H, C reatinine 6.29 H, Estim Creat Clear Calc 11.71 L, Est GFR (MDRD) Non-Af 9 L, B UN/Creatinine Ratio 7.7 L, Glucose 120 H, Calcium 7.7, Phosphorus 5.5 H, Magnesium 1.8, Total Bilirubin 0.30, AST 18, ALT 17, Alkaline Phosphatase 177 H, Total Protein 5.7 L, Albumin 2.8 L, Globulin 2.9, Albumin/Globulin Ratio 1.0 Micro: Microbiology 06/30/24 10:30 Nasal Secretion MRSA (PCR) - Final Rhythm Strip Rhythm Strip: Sinus Rhythm Rate: 90 Ectopy: None Cardiology Labs/Tests 07/01/24 03:59: WBC 8.0, RBC 1.93 L, Hgb 5.6 L*, Hct 17.3 L, MCV 89.6, MCH 29.0, MCHC 32.4, Plt Count 141 L, MPV 11.9, Immature Gran % (Auto) 0.600, Neut % (Auto) 69.5, Lymph % (Auto) 7.9 L, [place] % (Auto) 11.2 H, Eos % (Auto) 10.5 H, Baso % (Auto) 0.3, Absolute Neuts (auto) 5.6, Nucleated RBC % 0, Sodium 137, Potassium 3.5, Chloride 103, Carbon Dioxide 19.6 L, Anion Gap 15, BUN 49 H, C reatinine 6.29 H, Est GFR (MDRD) Non-Af 9 L, BUN/Creatinine Ratio 7.7 L, Glucose 120 H, Calcium 7.7, Phosphorus 5.5 H, Magnesium 1.8, Total Bilirubin 0.30 Rhythm: EKG: ECHO: Stress Test: Cardiac Cath: PCI: CT Surgery: Holter monitor: EPS: PPM: CXR: Chest CT Scan: Radiography Diagnostic Testing: Radiology Impression Venous Doppler Study 06/30/24 08:15 Interpretation Summary Deep veins of the bilateral lower extremities are patent and compressible segmentally. There is no evidence of bilateral lower extremity deep vein thrombosis. The bilateral great saphenous veins appear patent and compressible segmentally. Ordering Physician: Milagros Beebe Referring Physician: Karlos Trejo M.D. Performed By: Iveth Sanchez RVT Chest X-Ray 06/30/24 08:52 IMPRESSION: Stable support devices as described. Small bilateral pleural effusions and atelectasis. Reading Location: [facility] Abdomen/Pelvis CT 07/01/24 04:55 IMPRESSION: Partially imaged bilateral left larger appearing than right pleural effusions with associated adjacent partial imaged passive collapse, atelectasis. Some liquid appearing material is seen in the distal and lower colon mixed with some fecal material may correlate for evidence of blood, nonspecific. No peritoneal free fluid seen. Partially imaged three-vessel moderate to heavy appearing coronary calcification. Appearance of the liver suggesting cirrhosis, clinically correlate. Reading Location: [facility] Physical Exam Const alert, oriented x3 and no apparent distress Constitutional Narrative: Intubated General Appearance: cooperative HEENT hearing grossly normal bilaterally Head and Scalp: atraumatic Eyes EOMs intact bilaterally Neck General: normal visual inspection Chest inspection of chest normal and palpation of chest normal Resp normal respiratory effort Auscultation: clear to auscultation bilaterally Cardio regular rate, regular rhythm, S1 normal heart sound and S2 normal heart sound Jugular Venous Distention: JVD GI normal to inspection, nondistended, normoactive bowel sounds Extremity normal capillary refill and no pedal edema Peripheral Pulses: Yes pulses 2+ throughout and femoral pulses present Skin no rashes or lesions noted Neuro oriented x3 and CN's II-XII intact bilaterally Psych Appearance: grossly normal and appropriate Assessment & Plan Assessment/Plan (1) HFrEF (heart failure with reduced ejection fraction): PLAN: Patient presents with heart failure with reduced ejection fraction. He is currently undergoing hemodialysis. His estimated ejection fraction is noted to be 35%. * He will undergo guideline directed medical care and therapies as tolerated. * At the appropriate time he may need to have a repeat echocardiogram or stress test to make sure that this is not ischemic in origin. (2) HTN (hypertension): QUALIFIERS: Hypertension type: primary hypertension Qualified Code(s): I10 - Essential (primary) hypertension PLAN: Blood pressure appears to be under good control at this time Continue current medical therapy with no major changes. Will start carvedilol 3.125 mg twice a da, when appropriate. Eventually may need isosorbide and hydralazine
[2024-07-01 08:34] LABS: Base Excess -5 mmol/L (-2 to +2); Bicarbonate 18.3 mmol/L (22-26); Blood Gas Specimen Type ART; Mode CPAP/PS; O2 Delivery Device Adult Vent; PEEP 5; PO2 66 mmHG (75-100); SITE R Brach; SO2 95 % (95-99); Total Carbon Dioxide 19 mmol/L; pCO2 23.7 mmHg (35-45)
[2024-07-01 09:24] LABS: Rheumatoid Factor < 10.0 IU/mL (<15)
--- NOTE | 2024-07-01 09:30 | NURSING ---
Dr Trejo at bedside speaking to patient and his . Patient is awake and alert on ventilator, not his head appropriately to questions. Dr Trejo decided against extubating patient at this time due to drop in patients Hgb this morning with pending GI consult for possible EGD later today. Patient nodded his head yes to understanding rational and verbalized the same.
[2024-07-01] MEDS: Cefepime HCl 0.5 GM in 0.9% Normal Saline (50mL Bag) 50 ML IV (09:40)
[2024-07-01] MEDS: Chlorhexidine 15 ML PO ×2 (10:24→21:27)
[2024-07-01] MEDS: Heparin Injection (Vial) 5,000 UNIT/ML VIAL 5000 UNIT SC (10:25)
[2024-07-01] MEDS: Senna/Docusate Sodium 1 Tablet 2 TABLET PO ×2 (10:26→21:26)
[2024-07-01] MEDS: Pantoprazole Sodium 40 MG in 0.9% Normal Saline (100mL MB+) 100 ML 330 MG IV (10:30)
--- NOTE | 2024-07-01 11:47 | PN.RENAL_ITS ---
Subjective Subjective intubated. events noted. low grade fevers. Objective Data Objective Data Vital Signs: Vital Signs Temp Pulse Resp BP Pulse Ox O2 Del Method O2 Flow Rate 100.4 F H 77 14 144/63 H 94 Mechanical Ventilator 40 07/01/24 11:16 07/01/24 11:16 07/01/24 11:16 07/01/24 11:16 07/01/24 11:16 07/01/24 11:28 06/27/24 09:45 FiO2 25 07/01/24 11:28 Oxygen Flow Rate (L/min) 40 Oxygen Delivery Method Mechanical Ventilator Weight: 83.3 kg Body Mass Index (BMI) 27.1 Intake & Output: Intake and Output for Last 24 Hours 06/29/24 06/30/24 07/01/24 23:59 23:59 23:59 Intake Total 1821.17 / 1866.37 2277.94 / 2298.14 890.41 / 890.41 Output Total 695 / 1045 4295 / 4295 Balance 1126.17 / 821.37 -2017.1996.86 890.41 / 890.41 Lab / Micro Data 07/01/24 03:59 07/01/24 03:59 Labs: Laboratory Results - last 24 hr 06/30/24 12:25: POC Glucose 123 H 06/30/24 17:57: POC Glucose 97 06/30/24 23:00: POC Glucose 85 07/01/24 03:59: WBC 8.0, RBC 1.93 L, Hgb 5.6 L*, Hct 17.3 L, MCV 89.6, MCH 29.0, MCHC 32.4, RDW Std Deviation 50.3 H, RDW Coeff of Hallie 15.5 H, Plt Count 141 L, MPV 11.9, Immature Gran % (Auto) 0.600, Neut % (Auto) 69.5, Lymph % (Auto) 7.9 L , [place] % (Auto) 11.2 H, Eos % (Auto) 10.5 H, Baso % (Auto) 0.3, Absolute Neuts (auto) 5.6, Absolute Lymphs (auto) 0.63 L, Nucleated RBC % 0, Sodium 137, Potassium 3.5, Chloride 103, Carbon Dioxide 19.6 L, Anion Gap 15, BUN 49 H, C reatinine 6.29 H, Estim Creat Clear Calc 11.71 L, Est GFR (MDRD) Non-Af 9 L, B UN/Creatinine Ratio 7.7 L, Glucose 120 H, Calcium 7.7, Phosphorus 5.5 H, Magnesium 1.8, Total Bilirubin 0.30, AST 18, ALT 17, Alkaline Phosphatase 177 H, Total Protein 5.7 L, Albumin 2.8 L, Globulin 2.9, Albumin/Globulin Ratio 1.0 07/01/24 08:00: Rheumatoid Factor < 10.0, Scl-70 Scleroderma Ab TNP 07/01/24 09:15: Blood Type A POSITIVE, Antibody Screen NEGATIVE, Crossmatch See Detail Micro: Microbiology 06/30/24 09:27 Sputum, Induced/Lukens Gram Stain - Final 06/30/24 09:27 Sputum, Induced/Lukens Respiratory Culture - Preliminary Staphylococcus aureus 06/30/24 10:30 Nasal Secretion MRSA (PCR) - Final 06/27/24 14:15 Sputum, Induced/Lukens Gram Stain - Final 06/27/24 14:15 Sputum, Induced/Lukens Respiratory Culture - Final Mixed normal respiratory michael. No Streptococcus pneumoniae, beta-hemolytic Streptococcus or Staphylococcus aureus isolated. 06/27/24 05:55 Blood Culture (Wb) - Left Forearm Blood Culture - Preliminary No growth in 48 hours. 06/27/24 05:40 Blood Culture (Wb) - Anticubital Left Blood Culture - Preliminary No growth in 48 hours. ABG Data ABG results: ABG 07/01/24 08:31 Specimen Type ART Sample Site R Brach pH 7.50 H Bicarbonate Actual 18.3 L Total CO2 19 Base Excess -5 L O2 Saturation 95 O2 % 25.0 ABG pCO2 23.7 L ABG pO2 66 L O2 Delivery Device Adult Vent Vent Mode CPAP/PS POC PEEP 5 Radiography Diagnostic Testing: Radiology Impression Venous Doppler Study 06/30/24 08:15 Interpretation Summary Deep veins of the bilateral lower extremities are patent and compressible segmentally. There is no evidence of bilateral lower extremity deep vein thrombosis. The bilateral great saphenous veins appear patent and compressible segmentally. Ordering Physician: Milagros Beebe Referring Physician: Karlos Trejo M.D. Performed By: Iveth Sanchez, AMARA Abdomen/Pelvis CT 07/01/24 04:55 IMPRESSION: Partially imaged bilateral left larger appearing than right pleural effusions with associated adjacent partial imaged passive collapse, atelectasis. Some liquid appearing material is seen in the distal and lower colon mixed with some fecal material may correlate for evidence of blood, nonspecific. No peritoneal free fluid seen. Partially imaged three-vessel moderate to heavy appearing coronary calcification. Appearance of the liver suggesting cirrhosis, clinically correlate. Reading Location: [facility] Rhythm Strip Rhythm Strip: Sinus Rhythm Rate: 90 Ectopy: None Physical Exam Narrative Intubated. No acute distress noted S1, S2, RRR Breath sounds clear anteriorly Abdomen soft Nonpitting edema bilateral lower legs Temporary hemodialysis catheter dressing clean, dry and Assessment & Plan Assessment/Plan (1) LG (acute kidney injury): (2) CKD (chronic kidney disease) stage 4, GFR 15-29 ml/min: (3) Acute metabolic acidosis: (4) Acute hypoxic respiratory failure: PLAN: Plan Assessment/Plan: The patient is a 64-year-old male with past history of CKD stage G4, type 2 diabetes mellitus, and hypertension. Patient presents to the hospital with acute hypoxic respiratory failure. Checks x-ray shows bilateral pleural effusion with pulmonary vascular congestion. He was also found to have severe renal dysfunction with creatinine of 9.20 mg/dL and severe acute metabolic acidosis with bicarbonate level of 9 mmol/L. Nephrology is asked to see the patient because of LG on CKD. - Acute kidney injury on chronic kidney disease stage G4. Patient has known CKD. Serum creatinine was already 3.53 mg/dL, EGFR 28 mL/min on 02/28/2022. Patient had 2+ proteinuria in February 2022 as well. Urine albumin to creatinine ratio was already 9.8 g/g at that time. Suspicion is progression of CKD which is likely due to diabetic kidney disease given prior history of proteinuria; now ESRD. UPEP was negative at that time. First HD June 27 HD 06/30 Surgery team consulted for tunneled hemodialysis catheter placement, on hold today due to low grade fever. Case management team to arrange for outpatient hemodialysis, dx: ESRD - Acute metabolic acidosis. Patient presented with serum bicarbonate level of 9 mmol/L. Metabolic acidosis was likely due to LG on CKD. better Anemia. hb dropped overnight. dw ICU staff. OG is clean. no BMs yet. GI on consult likely HD tomorrow
[2024-07-01 12:36] LABS: Bedside Glucose 103 mg/dL (74-106)
--- NOTE | 2024-07-01 13:14 | PHA.PHARE_ITS ---
Consult Antibiotic Management Pharmacy has been consulted to manage selected antibiotic: Vancomycin Type of Intervention Type of Consult: Follow-up Labs Labs: Sodium 137 mmol/L (133-145) 07/01/24 03:59 Potassium 3.5 mmol/L (3.3-5.1) 07/01/24 03:59 Chloride 103 mmol/L (98-108) 07/01/24 03:59 Carbon Dioxide 19.6 mmol/L (21.0-32.0) L 07/01/24 03:59 Anion Gap 15 (5-15) 07/01/24 03:59 BUN 49 mg/dL (4-19) H 07/01/24 03:59 Creatinine 6.29 mg/dL (0.70-1.20) H 07/01/24 03:59 Est GFR (MDRD) Non-Af 9 (>60) L 07/01/24 03:59 BUN/Creatinine Ratio 7.7 RATIO (10-20) L 07/01/24 03:59 Glucose 120 mg/dL (70-99) H 07/01/24 03:59 Microbiology Microbiology: Microbiology 06/30/24 09:27 Sputum, Induced/Lukens Gram Stain - Final 06/30/24 09:27 Sputum, Induced/Lukens Respiratory Culture - Preliminary Staphylococcus aureus 06/30/24 10:30 Nasal Secretion MRSA (PCR) - Final 06/27/24 14:15 Sputum, Induced/Lukens Gram Stain - Final 06/27/24 14:15 Sputum, Induced/Lukens Respiratory Culture - Final Mixed normal respiratory michael. No Streptococcus pneumoniae, beta-hemolytic Streptococcus or Staphylococcus aureus isolated. 06/27/24 05:55 Blood Culture (Wb) - Left Forearm Blood Culture - Preliminary No growth in 48 hours. 06/27/24 05:40 Blood Culture (Wb) - Anticubital Left Blood Culture - Preliminary No growth in 48 hours. Pharmacy Plan for Drug Dosing Pharmacy Plan for Drug Dosing: DAILY ASSESSMENT Current Vancomycin Dose: dose by level, pt on HD, 500MG X1 yesterday after dialysis Number of Doses Received: 2 Current Renal Function: HD Renal Function Trend: HD Lab/Micro: repeat sputum cx pending Any Change in Vanc Plan: Pt needs tunneled cath placed but has low fevers, no surgery today. Per today's nephrology note, likely HD tomorrow. Will enter pre- HD random level for tomorrow in case of HD. Pending Level: 07/02/24 @ 0600 - random Pharmacy Service will continue to monitor and adjust dosing as required.
[2024-07-01] MEDS: Propofol 10MG/Ml 1,000 MG/100 ML Bottle 7.6 MG CONT INF (13:30)
[2024-07-01 14:14] LABS: Bedside Glucose 111 mg/dL (74-106)
[2024-07-01 16:43] LABS: Hematocrit 33.3 % (40-54); Hemoglobin 11.4 g/dL (13.0-16.5)
[2024-07-01 16:55] LABS: Bedside Glucose 100 mg/dL (74-106)
[2024-07-02] VITALS (43 sets, daily range): BP systolic 124–214; BP diastolic 56–95; PULSE 46–79; RESP 10–26; TEMP 36.7–37.8; O2SAT 92–99; BMI 27.1; BMI 26.1
[2024-07-02 01:03] LABS: Bedside Glucose 87 mg/dL (74-106)
[2024-07-02] MEDS: Propofol 10MG/Ml 1,000 MG/100 ML Bottle 7.6 MG CONT INF (01:58)
[2024-07-02] MEDS: fentaNYL drip 100 ML 5 MCG CONT INF (03:03)
[2024-07-02 06:47] LABS: Absolute Lymphocyte Count 0.61 X10^3/uL (0.83-4.51); Absolute Neutrophil Count 4.7 X10^3/uL (2.0-7.7); Basophil# 0.04 X10^3/uL; Basophil% 0.6 % (0-1); Bedside Glucose 89 mg/dL (74-106); Eosinophil# 0.82 X10^3/uL; Eosinophils% 11.5 % (0-5); Hematocrit 30.9 % (40-54); Hemoglobin 10.3 g/dL (13.0-16.5); Lymphocyte # 0.61 X10^3/ul (0.83-4.51); Lymphocyte % 8.6 % (19-41); Mean Corp Hgb Conc 33.3 g/dL (32-36); Mean Corpuscular Hgb 29.3 pg (27.0-32.0); Mean Corpuscular Volume 87.8 fL (80-94); Mean Platelet Vol. 11.4 fl (6.2-12.0); Monocyte# 0.89 X10^3/uL; Monocyte% 12.5 % (0-10); NRBC Flagged by Analyzer 0 % (0-5); Neutrophil # 4.69 X10^3/uL (2.7-7.7); Platelet Count 134 K/mm3 (150-450); RBC Distribution Width CV 15.1 % (11.6-14.6); RBC Distribution Width SD 48.7 fl (35.1-43.9); Red Blood Count 3.52 M/mm3 (4.6-6.2); White Blood Count 7.1 K/mm3 (4.4-11.0)
[2024-07-02 07:06] LABS: Anion Gap 17 (5-15); BUN 57 mg/dL (4-19); BUN/Creat Ratio 7.9 RATIO (10-20); Calcium,Total 8.3 mg/dL (7.6-11.0); Carbon Dioxide 17.1 mmol/L (21.0-32.0); Chloride 105 mmol/L (98-108); EST Glomerular Filtration Rate 8 (>60); Estimated Creatinine Clearance 10.23 ml/min (50-250); Glucose 97 mg/dL (70-99); Potassium 3.9 mmol/L (3.3-5.1); Sodium Level 139 mmol/L (133-145)
--- NOTE | 2024-07-02 07:26 | PN.CC_ITS ---
Assessment & Plan Assessment/Plan (1) Acute hypoxic respiratory failure: (2) Acute metabolic acidosis: (3) LG (acute kidney injury): (4) Elevated troponin: PLAN: Plan RECOMMENDATIONS: 1. Proceed with a trial of extubation. 2. Once extubated, supplemental oxygen can be weaned to maintain saturations at or above 90%. 3. Bedside swallow evaluation prior to advancement of diet. 4. Continue to monitor H&H and transfuse if hemoglobin drops below 7 g/dL. 5. Okay to discontinue vancomycin. Continue cefepime to complete 7 days of therapy. 6. Tentative plans for tunneled dialysis catheter placement tomorrow. 7. Ongoing dialysis support per nephrology recommendations. 8. Encourage incentive spirometer use and mobilize patient as tolerated. IMPRESSIONS: 1. Acute on chronic kidney disease with concurrent metabolic acidosis Likely secondary to progressive chronic kidney disease in the setting of diabetes mellitus with history of proteinuria. Nephrology is currently following to assist with ongoing hemodialysis needs. There are tentative plans to proceed with tunneled dialysis catheter placement, possibly tomorrow. Although no definitive evidence of pneumonia was noted on chest imaging, sputum culture is currently demonstrating growth of MSSA. Therefore, antibiotics will be continued. Ongoing dialysis support will be continued per nephrology recommendations. 2. Acute hypoxemic respiratory failure Improving. Secondary to pulmonary edema in the setting of progressive kidney disease, hypervolemia and hypertension. The patient's respiratory status has improved with hemodialysis. He does have a low-grade fever and is currently demonstrating growth of MSSA in the sputum. Therefore, antibiotics will be continued. The patient passed a spontaneous breathing trial this morning and was subsequently extubated. Supplemental oxygen will be weaned to maintain saturations at or above 90%. Encourage incentive spirometer use and mobilize patient as tolerated. 3. Anemia Continue to monitor blood counts and transfuse if hemoglobin drops below 7 g/dL. Continue PPI therapy as ordered. 4. Troponin elevation Clinical concern for underlying demand ischemia in the setting of numbers 1 and 2. Continue current supportive care. 5. History of hypertension/diabetes mellitus/chronic back pain Complicates care, management, recovery and prognosis. Continue supportive care as noted above. TIME: 32 minutes of critical care time, independent of procedures, was spent addressing the patient's acute on chronic kidney disease with concurrent metabolic acidosis, acute hypoxemic respiratory failure, troponin elevation, review of all data and collaboration with the care team. Subjective Subjective The patient was seen and examined at the bedside this morning. Events from the last 24 hours have been reviewed. The patient is currently afebrile, hemodynamically stable and maintaining appropriate oxygen saturations on control mode mechanical ventilation with an FiO2 requirement of 25% and PEEP of 5. White blood cell count is normal. Hemoglobin is stable at 10.3 g/dL. The patient is due for dialysis today. The patient did well this morning on his spontaneous awakening trial. He subsequently completed a spontaneous breathing trial without complication. Accordingly, the patient was extubated. Objective Data Objective Data The patient's most recent lab work, culture data and imaging studies have all been personally reviewed. Sputum culture dated June 30 was positive for MSSA. Vital Signs: Vital Signs Temp Pulse Resp BP Pulse Ox O2 Del Method O2 Flow Rate 98.6 F 48 L 20 H 128/59 H 97 Mechanical Ventilator 40 07/02/24 06:00 07/02/24 06:59 07/02/24 06:59 07/02/24 06:00 07/02/24 06:59 07/02/24 06:00 06/27/24 09:45 FiO2 25 07/02/24 06:59 Oxygen Flow Rate (L/min) 40 Oxygen Delivery Method Mechanical Ventilator Weight: 183 lb 10.321 oz Body Mass Index (BMI) 27.1 Intake & Output: Intake and Output for Last 24 Hours 06/30/24 07/01/24 07/02/24 23:59 23:59 23:59 Intake Total 2277.94 / 2298.14 1237.61 / 1250.21 104.09 / 104.09 Output Total 4295 / 4295 1100 / 1100 300 / 300 Balance -2017.06 / -1996.86 137.61 / 150.21 -195.91 / -195.91 Lab / Micro Data Attestation: I reviewed the patient's lab results. 07/02/24 06:25 07/02/24 06:25 Labs: Laboratory Results - last 24 hr 07/01/24 06:08: POC Glucose 103 07/01/24 08:00: Rheumatoid Factor < 10.0, Scl-70 Scleroderma Ab TNP 07/01/24 09:15: Blood Type A POSITIVE, Antibody Screen NEGATIVE, Crossmatch See Detail 07/01/24 09:15: Crossmatch See Detail 07/01/24 13:53: POC Glucose 111 H 07/01/24 16:30: Hgb 11.4 L, Hct 33.3 L 07/01/24 16:33: POC Glucose 100 07/02/24 00:45: POC Glucose 87 07/02/24 06:25: WBC 7.1, RBC 3.52 L, Hgb 10.3 L, Hct 30.9 L, MCV 87.8, MCH 29.3, MCHC 33.3, RDW Std Deviation 48.7 H, RDW Coeff of Hallie 15.1 H, Plt Count 134 L, MPV 11.4, Immature Gran % (Auto) 0.800, Neut % (Auto) 66.0, Lymph % (Auto) 8.6 L , [place] % (Auto) 12.5 H, Eos % (Auto) 11.5 H, Baso % (Auto) 0.6, Absolute Neuts (auto) 4.7, Absolute Lymphs (auto) 0.61 L, Nucleated RBC % 0, Sodium 139, Potassium 3.9, Chloride 105, Carbon Dioxide 17.1 L, Anion Gap 17 H, BUN 57 H, C reatinine 7.20 H, Estim Creat Clear Calc 10.23 L, Est GFR (MDRD) Non-Af 8 L, B UN/Creatinine Ratio 7.9 L, Glucose 97, Calcium 8.3, Random Vancomycin 14.0, POC Glucose 89 Micro: Microbiology 06/30/24 09:27 Sputum, Induced/Lukens Gram Stain - Final 06/30/24 09:27 Sputum, Induced/Lukens Respiratory Culture - Preliminary Staphylococcus aureus 06/30/24 10:30 Nasal Secretion MRSA (PCR) - Final 06/27/24 14:15 Sputum, Induced/Lukens Gram Stain - Final 06/27/24 14:15 Sputum, Induced/Lukens Respiratory Culture - Final Mixed normal respiratory michael. No Streptococcus pneumoniae, beta-hemolytic Streptococcus or Staphylococcus aureus isolated. 06/27/24 05:55 Blood Culture (Wb) - Left Forearm Blood Culture - Preliminary No growth in 48 hours. 06/27/24 05:40 Blood Culture (Wb) - Anticubital Left Blood Culture - Preliminary No growth in 48 hours. ABG Data ABG results: ABG 07/01/24 08:31 Specimen Type ART Sample Site R Brach pH 7.50 H Bicarbonate Actual 18.3 L Total CO2 19 Base Excess -5 L O2 Saturation 95 O2 % 25.0 ABG pCO2 23.7 L ABG pO2 66 L O2 Delivery Device Adult Vent Vent Mode CPAP/PS POC PEEP 5 Radiography Diagnostic Testing: Radiology Impression Venous Doppler Study 06/30/24 08:15 Interpretation Summary Deep veins of the bilateral lower extremities are patent and compressible segmentally. There is no evidence of bilateral lower extremity deep vein thrombosis. The bilateral great saphenous veins appear patent and compressible segmentally. Ordering Physician: Milagros Beebe Referring Physician: Karlos Trejo M.D. Performed By: Iveth Sanchez RVT Chest X-Ray 06/30/24 08:52 IMPRESSION: Stable support devices as described. Small bilateral pleural effusions and atelectasis. Reading Location: [facility] Abdomen/Pelvis CT 07/01/24 04:55 IMPRESSION: Partially imaged bilateral left larger appearing than right pleural effusions with associated adjacent partial imaged passive collapse, atelectasis. Some liquid appearing material is seen in the distal and lower colon mixed with some fecal material may correlate for evidence of blood, nonspecific. No peritoneal free fluid seen. Partially imaged three-vessel moderate to heavy appearing coronary calcification. Appearance of the liver suggesting cirrhosis, clinically correlate. Reading Location: [id number] Rhythm Strip Rhythm Strip: Sinus Rhythm Rate: 90 Ectopy: None Physical Exam Const alert and no apparent distress Constitutional Narrative: Remains intubated and mechanically ventilated. Currently tolerating pressure support trial. General Appearance: cooperative HEENT normocephalic and head/scalp atraumatic Mouth: endotracheal tube in place and OG tube in place Eyes PERRL, EOMs intact bilaterally and conjunctivae normal Neck supple General: trachea midline and CVC in place Chest inspection of chest normal Resp normal respiratory effort Auscultation: diminished lung sounds; Negative for rales, rhonchi or wheezes Cardio regular rate, regular rhythm, S1 normal heart sound and S2 normal heart sound GI soft to palpation and non-tender Extremity General Extremity: edema; Negative for clubbing Skin no rashes or lesions noted Neuro Neuro Narrative: Alert and able to follow commands appropriately. Psych cooperative and affect normal Charges/Coding Procedures Hospitalists Procedures: 89159 Critical Care 1st Hr
[2024-07-02] MEDS: CHLORHEXIDINE GLUC 2% CLOTH 1 EACH TOWELETTE TOPICAL (07:40)
[2024-07-02] MEDS: Pantoprazole Sodium 40 MG in 0.9% Normal Saline (100mL MB+) 100 ML 330 MG IV (07:40)
[2024-07-02] MEDS: Chlorhexidine 15 ML PO (07:40)
[2024-07-02] MEDS: Senna/Docusate Sodium 1 Tablet 2 TABLET PO (07:42)
--- NOTE | 2024-07-02 08:03 | PCM.PN.HOSP ---
Reason for Visit Reason for Visit: Shortness of breath Subjective Subjective Patient extubated today. Voice is weak due to ET tube the patient maintaining his airway findings on room air. Plan is for tunneled dialysis catheter tomorrow as fever curve is improving. I did discuss with family the likelihood that his hemoglobin was spurious resolved as his corrected volume overcorrected based on the amount of blood we gave him and it was stable today. Objective Data Objective Data Vital Signs: Vital Signs Temp Pulse Resp BP Pulse Ox O2 Del Method O2 Flow Rate 98.6 F 53 L 20 H 142/61 H 97 Mechanical Ventilator 40 07/02/24 07:00 07/02/24 07:00 07/02/24 07:00 07/02/24 07:00 07/02/24 07:00 07/02/24 07:00 06/27/24 09:45 FiO2 25 07/02/24 07:00 Oxygen Flow Rate (L/min) 40 Oxygen Delivery Method Mechanical Ventilator Weight: 83.3 kg Body Mass Index (BMI) 27.1 Intake & Output: Intake and Output for Last 24 Hours 06/30/24 07/01/24 07/02/24 23:59 23:59 23:59 Intake Total 2277.94 / 2298.14 1237.61 / 1250.21 104.09 / 104.09 Output Total 4295 / 4295 1100 / 1100 345 / 345 Balance -2017. / -1996.86 137.61 / 150.21 -240.91 / -240.91 Lab / Micro Data 07/02/24 06:25 07/02/24 06:25 Labs: Laboratory Results - last 24 hr 07/01/24 06:08: POC Glucose 103 07/01/24 08:00: Rheumatoid Factor < 10.0, Scl-70 Scleroderma Ab TNP 07/01/24 09:15: Blood Type A POSITIVE, Antibody Screen NEGATIVE, Crossmatch See Detail 07/01/24 09:15: Crossmatch See Detail 07/01/24 13:53: POC Glucose 111 H 07/01/24 16:30: Hgb 11.4 L, Hct 33.3 L 07/01/24 16:33: POC Glucose 100 07/02/24 00:45: POC Glucose 87 07/02/24 06:25: WBC 7.1, RBC 3.52 L, Hgb 10.3 L, Hct 30.9 L, MCV 87.8, MCH 29.3, MCHC 33.3, RDW Std Deviation 48.7 H, RDW Coeff of Hallie 15.1 H, Plt Count 134 L, MPV 11.4, Immature Gran % (Auto) 0.800, Neut % (Auto) 66.0, Lymph % (Auto) 8.6 L, [place] % (Auto) 12.5 H, Eos % (Auto) 11.5 H, Baso % (Auto) 0.6, Absolute Neuts (auto) 4.7, Absolute Lymphs (auto) 0.61 L, Nucleated RBC % 0, Sodium 139, Potassium 3.9, Chloride 105, Carbon Dioxide 17.1 L, Anion Gap 17 H, BUN 57 H, Creatinine 7.20 H, Estim Creat Clear Calc 10.23 L, Est GFR (MDRD) Non-Af 8 L, BUN/Creatinine Ratio 7.9 L, Glucose 97, Calcium 8.3, Random Vancomycin 14.0, POC Glucose 89 Micro: Microbiology 06/30/24 09:27 Sputum, Induced/Lukens Gram Stain - Final 06/30/24 09:27 Sputum, Induced/Lukens Respiratory Culture - Final Staphylococcus aureus 06/27/24 05:55 Blood Culture (Wb) - Left Forearm Blood Culture - Final No growth in 5 days. 06/27/24 05:40 Blood Culture (Wb) - Anticubital Left Blood Culture - Final No growth in 5 days. 06/30/24 10:30 Nasal Secretion MRSA (PCR) - Final 06/27/24 14:15 Sputum, Induced/Lukens Gram Stain - Final 06/27/24 14:15 Sputum, Induced/Lukens Respiratory Culture - Final Mixed normal respiratory michael. No Streptococcus pneumoniae, beta-hemolytic Streptococcus or Staphylococcus aureus isolated. ABG Data ABG results: ABG 07/01/24 08:31 Specimen Type ART Sample Site R Brach pH 7.50 H Bicarbonate Actual 18.3 L Total CO2 19 Base Excess -5 L O2 Saturation 95 O2 % 25.0 ABG pCO2 23.7 L ABG pO2 66 L O2 Delivery Device Adult Vent Vent Mode CPAP/PS POC PEEP 5 Rhythm Strip Rhythm Strip: Sinus Rhythm Rate: 90 Ectopy: None Physical Exam Const alert, oriented x3, no apparent distress and average body habitus; Negative for healthy appearing Constitutional Narrative: Upper middle-aged, white male, appears older than stated age, sitting up in bed on room air, extubated, at bedside HEENT normocephalic, head/scalp atraumatic and moist oral mucous membranes HEENT Narrative: Mallampati 2, no thrush Neck Neck Narrative: Right IJ temporary dialysis catheter in place Resp normal respiratory effort, no retractions, no use of accessory muscles and clear to auscultation bilaterally Auscultation: Negative for crackles, rales, rhonchi or wheezes Cardio regular rate, regular rhythm, S1 normal heart sound, S2 normal heart sound, no murmurs, no rub, no gallops and no clicks GI normal to inspection, nondistended, normoactive bowel sounds, soft to palpation and non-tender; Negative for hepatosplenomegaly Extremity no clubbing, cyanosis or edema Extremity Narrative: Pedal pulses are 2+ Neuro oriented x3, moves all extremities and no focal motor deficits Neuro Narrative: Generalized weakness noted but no focal deficits, voice is weak Speech: Negative for speech normal Psych affect normal Psych Narrative: Eye contact is good and patient interacts appropriately Assessment & Plan Assessment/Plan (1) HFrEF (heart failure with reduced ejection fraction): (2) Elevated troponin: (3) Acute hypoxic respiratory failure: (4) Acute metabolic acidosis: (5) LG (acute kidney injury): (6) Pulmonary vascular congestion: (7) Metabolic acidosis: PLAN: Plan Acute hypoxic respiratory failure secondary to severe pulmonary edema - Extubated 07/02/2024 -Continue pulmonary toilet as able - I-S/Acapella MSSA tracheobronchitis - Continue cefepime -If other cultures remain unremarkable will transition to Ancef tomorrow to complete course will need 7 days total -Discontinue vancomycin - Aggressive pulmonary toilet - No infiltrate noted on exam and auscultation is unremarkable Fever - Fever curve is improving and resolved likely related to MSSA tracheobronchitis Troponin elevation - Highly suspect related to demand ischemia from above -Echocardiogram from 06/27/2024 demonstrated EF of 35% with moderate mitral valve insufficiency and severe global hypokinesis of the LV - Plan is for outpatient cardiology follow-up after discharge Acute HFrEF - Global hypokinesis with no wall motion abnormality -EF 35% on echo from 06/27/2024 - Plan is to initiate goal-directed therapy as tolerated - Start carvedilol 3.125 twice daily today -If blood pressure remains elevated will consider initiation of hydralazine and/or nitrate tomorrow - Will need outpatient cardiology follow-up - Cardiology has signed off LG on CKD stage IV with concurrent metabolic acidosis - Suspect this is related to uncontrolled DM-2 - Continue intermittent HD per nephrology - Plan is for tunneled dialysis catheter tomorrow - Continue to monitor and transition to tunneled dialysis catheter when able Acute on chronic anemia - Hemoglobin was 6.0 on 06/28/2024 - Patient was transfused 3 units of packed red blood cells -Hemoglobin down to 5.6 a.m. on 08/01/2024--> will transfuse 3 units -Follow-up hemoglobin was 11.4 which is overcorrection and hemoglobin this morning was 10.3 -Highly suspect 5.6 was inaccurate--> discussed with family - Will hold off on EGD for now - Monitor closely - EPO per nephrology - If hemoglobin stable tomorrow we will restart DVT prophylaxis Essential hypertension - Start Coreg 3.125 twice daily - Continue PRNs - Had previously been on amlodipine and valsartan Thrombocytopenia - Platelet count still mildly low but overall stable - Repeat CBC in a.m. DM-2 - Fasting blood sugar this morning was 97 - Continue SSI but transition to AC - Renal diet initiated DVT/GI prophylaxis - Hold heparin again today and if stable tomorrow will restart next-continue SCDs - Continue Protonix 40 mg IV daily CODE STATUS -Full code Charges/Coding Visit Charges Inpatient E&M: 73762 Subs Hosp L2
--- NOTE | 2024-07-02 08:56 | NURSING ---
Dr. Trejo ordered to extubate patient. This RN and Ankita, respiratory therapist at bedside. Extubated at 0845, restraints D/C'd, oral suctioned and explained use of yankauer and coughing up all secretions. Patient verbalizes understanding.
[2024-07-02 09:08] LABS: ANTINUCLEAR ANTIBODIES DIRECT Negative (Negative)
[2024-07-02] MEDS: PureFlow B 3K Dialysis Soln 1 BAG 6 BAG PF (10:26)
[2024-07-02] MEDS: 0.9% Normal Saline 1,000 ML IV.SOLN. 1000 ML OPERA.SITE (10:26)
[2024-07-02] MEDS: 0.9% Saline Lock 10 ML Syringe IV (10:27)
--- NOTE | 2024-07-02 10:54 | PCM.PN.SRG ---
Subjective Subjective Patient evaluated resting comfortably in bed on dialysis. He denies feeling feverish. He denies any current chest pain. Objective Data Objective Data Vital Signs: Vital Signs Temp Pulse Resp BP Pulse Ox O2 Del Method O2 Flow Rate 98.5 F 61 15 161/68 H 96 Room Air 40 07/02/24 10:00 07/02/24 10:29 07/02/24 10:29 07/02/24 10:29 07/02/24 10:29 07/02/24 10:29 06/27/24 09:45 FiO2 25 07/02/24 08:00 Oxygen Flow Rate (L/min) 40 Oxygen Delivery Method Room Air Weight: 183 lb 10.321 oz Body Mass Index (BMI) 27.1 Intake & Output: Intake and Output for Last 24 Hours 06/30/24 07/01/24 07/02/24 23:59 23:59 23:59 Intake Total 2277.94 / 2298.14 1237.61 / 1250.21 214.09 / 214.09 Output Total 4295 / 4295 1100 / 1100 345 / 345 Balance -2017.06 / -1996.86 137.61 / 150.21 -130.91 / -130.91 Lab / Micro Data 07/02/24 06:25 07/02/24 06:25 Labs: Laboratory Results - last 24 hr 07/01/24 06:08: POC Glucose 103 07/01/24 08:00: HASEEB Screen Negative 07/01/24 09:15: Blood Type A POSITIVE, Antibody Screen NEGATIVE, Crossmatch See Detail 07/01/24 09:15: Crossmatch See Detail 07/01/24 13:53: POC Glucose 111 H 07/01/24 16:30: Hgb 11.4 L, Hct 33.3 L 07/01/24 16:33: POC Glucose 100 07/02/24 00:45: POC Glucose 87 07/02/24 06:25: WBC 7.1, RBC 3.52 L, Hgb 10.3 L, Hct 30.9 L, MCV 87.8, MCH 29.3, MCHC 33.3, RDW Std Deviation 48.7 H, RDW Coeff of Hallie 15.1 H, Plt Count 134 L, MPV 11.4, Immature Gran % (Auto) 0.800, Neut % (Auto) 66.0, Lymph % (Auto) 8.6 L, [place] % (Auto) 12.5 H, Eos % (Auto) 11.5 H, Baso % (Auto) 0.6, Absolute Neuts (auto) 4.7, Absolute Lymphs (auto) 0.61 L, Nucleated RBC % 0, Sodium 139, Potassium 3.9, Chloride 105, Carbon Dioxide 17.1 L, Anion Gap 17 H, BUN 57 H, Creatinine 7.20 H, Estim Creat Clear Calc 10.23 L, Est GFR (MDRD) Non-Af 8 L, BUN/Creatinine Ratio 7.9 L, Glucose 97, Calcium 8.3, Random Vancomycin 14.0, POC Glucose 89 Micro: Microbiology 06/30/24 09:27 Sputum, Induced/Lukens Gram Stain - Final 06/30/24 09:27 Sputum, Induced/Lukens Respiratory Culture - Final Staphylococcus aureus 06/27/24 05:55 Blood Culture (Wb) - Left Forearm Blood Culture - Final No growth in 5 days. 06/27/24 05:40 Blood Culture (Wb) - Anticubital Left Blood Culture - Final No growth in 5 days. 06/30/24 10:30 Nasal Secretion MRSA (PCR) - Final 06/27/24 14:15 Sputum, Induced/Lukens Gram Stain - Final 06/27/24 14:15 Sputum, Induced/Lukens Respiratory Culture - Final Mixed normal respiratory michael. No Streptococcus pneumoniae, beta-hemolytic Streptococcus or Staphylococcus aureus isolated. Rhythm Strip Rhythm Strip: Sinus Rhythm Rate: 90 Ectopy: None Physical Exam Chest Chest Narrative: Right IJ temporary catheter placement noted Resp Auscultation: rales bilateral Cardio regular rate and regular rhythm Assessment & Plan Assessment/Plan (1) LG (acute kidney injury): (2) CKD (chronic kidney disease) stage 4, GFR 15-29 ml/min: PLAN: Plan I am following this patient in conjunction with Dr. Edge. He will independently evaluate this patient. Labs reviewed. Hgb stable Normal temperature since [address] right chest tunneled dialysis catheter tomorrow at [address] Edge Consent and NPO in place We will continue to monitor this patient Charges/Coding Visit Charges Inpatient E&M: 07697 Subs Hosp L2
--- NOTE | 2024-07-02 11:36 | PN.RENAL_ITS ---
Subjective Subjective Patient seen and examined on dialysis. at bedside. Tolerating dialysis well. No complaints. Objective Data Objective Data Vital Signs: Vital Signs Temp Pulse Resp BP Pulse Ox O2 Del Method O2 Flow Rate 98.1 F 70 16 168/76 H 95 Room Air 40 07/02/24 10:44 07/02/24 11:30 07/02/24 11:30 07/02/24 11:30 07/02/24 11:30 07/02/24 11:30 06/27/24 09:45 FiO2 25 07/02/24 08:00 Oxygen Flow Rate (L/min) 40 Oxygen Delivery Method Room Air Weight: 83.3 kg Body Mass Index (BMI) 27.1 Intake & Output: Intake and Output for Last 24 Hours 06/30/24 07/01/24 07/02/24 23:59 23:59 23:59 Intake Total 2277.94 / 2298.14 1237.61 / 1250.21 214.09 / 214.09 Output Total 4295 / 4295 1100 / 1100 345 / 345 Balance -2017. / -1996.86 137.61 / 150.21 -130.91 / -130.91 Lab / Micro Data 07/02/24 06:25 07/02/24 06:25 Labs: Laboratory Results - last 24 hr 07/01/24 06:08: POC Glucose 103 07/01/24 08:00: HASEEB Screen Negative 07/01/24 09:15: Crossmatch See Detail 07/01/24 09:15: Crossmatch See Detail 07/01/24 13:53: POC Glucose 111 H 07/01/24 16:30: Hgb 11.4 L, Hct 33.3 L 07/01/24 16:33: POC Glucose 100 07/02/24 00:45: POC Glucose 87 07/02/24 06:25: WBC 7.1, RBC 3.52 L, Hgb 10.3 L, Hct 30.9 L, MCV 87.8, MCH 29.3, MCHC 33.3, RDW Std Deviation 48.7 H, RDW Coeff of Hallie 15.1 H, Plt Count 134 L, MPV 11.4, Immature Gran % (Auto) 0.800, Neut % (Auto) 66.0, Lymph % (Auto) 8.6 L , [place] % (Auto) 12.5 H, Eos % (Auto) 11.5 H, Baso % (Auto) 0.6, Absolute Neuts (auto) 4.7, Absolute Lymphs (auto) 0.61 L, Nucleated RBC % 0, Sodium 139, Potassium 3.9, Chloride 105, Carbon Dioxide 17.1 L, Anion Gap 17 H, BUN 57 H, C reatinine 7.20 H, Estim Creat Clear Calc 10.23 L, Est GFR (MDRD) Non-Af 8 L, B UN/Creatinine Ratio 7.9 L, Glucose 97, Calcium 8.3, Random Vancomycin 14.0, POC Glucose 89 Micro: Microbiology 06/30/24 09:27 Sputum, Induced/Lukens Gram Stain - Final 06/30/24 09:27 Sputum, Induced/Lukens Respiratory Culture - Final Staphylococcus aureus 06/27/24 05:55 Blood Culture (Wb) - Left Forearm Blood Culture - Final No growth in 5 days. 06/27/24 05:40 Blood Culture (Wb) - Anticubital Left Blood Culture - Final No growth in 5 days. 06/30/24 10:30 Nasal Secretion MRSA (PCR) - Final 06/27/24 14:15 Sputum, Induced/Lukens Gram Stain - Final 06/27/24 14:15 Sputum, Induced/Lukens Respiratory Culture - Final Mixed normal respiratory michael. No Streptococcus pneumoniae, beta-hemolytic Streptococcus or Staphylococcus aureus isolated. Rhythm Strip Rhythm Strip: Sinus Rhythm Rate: 90 Ectopy: None Physical Exam Narrative Intubated. No acute distress noted S1, S2, RRR Breath sounds clear anteriorly Abdomen soft Nonpitting edema bilateral lower legs Temporary hemodialysis catheter accessed for hemodialysis Hart with clear yellow urine in bag Assessment & Plan Assessment/Plan (1) LG (acute kidney injury): (2) CKD (chronic kidney disease) stage 4, GFR 15-29 ml/min: (3) Acute metabolic acidosis: (4) Acute hypoxic respiratory failure: PLAN: Plan Assessment/Plan: The patient is a 64-year-old male with past history of CKD stage G4, type 2 diabetes mellitus, and hypertension. Patient presents to the hospital with acute hypoxic respiratory failure. Checks x-ray shows bilateral pleural effusion with pulmonary vascular congestion. He was also found to have severe renal dysfunction with creatinine of 9.20 mg/dL and severe acute metabolic acidosis with bicarbonate level of 9 mmol/L. Nephrology is asked to see the patient because of LG on CKD. - Acute kidney injury on chronic kidney disease stage G4--> now ESRD Patient has known CKD. Serum creatinine was already 3.53 mg/dL, EGFR 28 mL/min on 02/28/2022. Patient had 2+ proteinuria in February 2022 as well. Urine albumin to creatinine ratio was already 9.8 g/g at that time. Suspicion is progression of CKD which is likely due to diabetic kidney disease given prior history of proteinuria; now ESRD. UPEP was negative at that time. [facility] June 27. Patient undergoing hemodialysis today with around 3 L fluid removal. Surgery team consulted for tunneled hemodialysis catheter placement; temporary hemodialysis catheter to be pulled today after dialysis. Case management team to arrange for outpatient hemodialysis, dx: ESRD - Acute metabolic acidosis. serum bicarbonate level of 9 mmol/L on presentation. Metabolic acidosis was likely due to LG on CKD. better - Anemia. hb dropped 5.6, patient received PRBC, today hemoglobin 10.3. GI consulted. Discussed with case management about outpatient hemodialysis arrangements. Discussed outpatient hemodialysis with patient and . Questions answered. Assessment and plan reviewed with Dr. Collazo.
[2024-07-02 12:11] LABS: Bedside Glucose 84 mg/dL (74-106)
[2024-07-02 12:17] LABS: Hepatitis B Surface Antigen Nonreactive (Nonreactive)
--- NOTE | 2024-07-02 12:34 | CASEMGMT ---
MARCELA spoke with Rosemary from [employer]. She did assist patient and his apply for Medicaid. Medicaid is still pending at this time. Jami Beavers MSW ZACHARY
--- NOTE | 2024-07-02 13:42 | CASEMGMT ---
Marilyn from Nephrology states to this RN FANTA that the pt will require HD as an OP and to make a referral to [facility] in [place]. CARMEN CM to pt room at this time. Pt and Gaston (HD RN) at bedside. Pt is currently being dialyzed. At this time, the pt states that he wants to DC home once he is medically ready. However, PT and OT evaluations are pending. CM to follow for HH or potential SNF needs. Regarding HD, pt states that he prefers [facility] in [place] and denies transportation issues. Pt states that he prefers a MWF schedule and to start as late in the day as possible. Pt is planned for a tunneled catheter tomorrow morning. Pt is currently SP as he has a pending [employer] application. See SW notes. At this time, the only immunizations [facility] has on record are the pt's COVID vaccines. TC to pt PCP office who also states that the only record they have are COVID vaccinations. Pt states that she will look for any records at home. Gaston states that this should not be an issue. However, Gaston does report that the pt insurance status could cause issues or delays in start time. To follow. Referral sent to [facility] via the portal with: Pt demographics, H&P, Nephrology notes, Manager Social Responsibility notes, recent hospitalist note, recent HD treatment sheets, recent labs, current allergy list, current medication list, current vaccination information, and Hep B antigen result. CM to follow. Donovan STOVER RN, CM
[2024-07-02] MEDS: Cefepime HCl 0.5 GM in 0.9% Normal Saline (50mL Bag) 50 ML IV (14:27)
--- NOTE | 2024-07-02 14:57 | NURSING ---
Notified by general surgery ok to remove temp dialysis catheter, as pt will be receiving tunneled line in the am. Temp catheter removed post HD today utilizing sterile technique. Sutures removed, catheter removed easily w/o resistance. Pressure held with sterile 4x4 gauze until hemostasis achieved. exit site dressed with new sterile 4x4 & opsite. Removed catheter was intact. pt tolerate procedure without complication.
[2024-07-02 16:08] LABS: CCP IgG Antibodies 8 units (0-19); Cytoplasmic Ab (C-ANCA) <1:20 titer (Neg:<1:20); Perinuclear Ab (P-ANCA) <1:20 titer (Neg:<1:20)
--- NOTE | 2024-07-02 16:25 | CASEMGMT ---
Hortencia at [facility] calls this CARMEN CM and states that she has secured a TTS schedule with a 1245p Chair time, pending the pt's insurance clearance. Hortencia states that she will not be able to generate or finalize a scheduled dialysis letter until the pt's insurance has been approved. Hortencia states that there is not MWF availability. Hortencia states that the earliest SOC would be next Sunday. CARMEN CM to pt room at this time. Pt states that he is agreeable to this. Pt advised to submit the needed paperwork to get the RENATE application process expedited. Pt states that she does not know what paperwork she needs to submit. This RN CM notified MARCELA and Rosemary from [facility] to provide the pt's with further assistance. CM to follow. Donovan STOVER RN CM
[2024-07-02 17:03] LABS: Bedside Glucose 94 mg/dL (74-106)
[2024-07-02 21:31] LABS: Bedside Glucose 81 mg/dL (74-106)
[2024-07-03] VITALS (21 sets, daily range): BP systolic 99–172; BP diastolic 59–79; PULSE 61–77; RESP 14–22; TEMP 36.3–37.5; O2SAT 93–99; BMI 25.8; BMI 25.7
[2024-07-03 03:30] LABS: Absolute Neutrophil Count 5.2 X10^3/uL (2.0-7.7); Basophil# 0.05 X10^3/uL; Basophil% 0.7 % (0-1); Eosinophil# 0.73 X10^3/uL; Eosinophils% 9.8 % (0-5); Hematocrit 35.5 % (40-54); Hemoglobin 11.9 g/dL (13.0-16.5); Lymphocyte % 9.4 % (19-41); Mean Corp Hgb Conc 33.5 g/dL (32-36); Mean Corpuscular Hgb 29.2 pg (27.0-32.0); Mean Platelet Vol. 10.8 fl (6.2-12.0); Monocyte# 0.77 X10^3/uL; Monocyte% 10.3 % (0-10); NRBC Flagged by Analyzer 0 % (0-5); Neutrophil # 5.16 X10^3/uL (2.7-7.7); Neutrophil % 69.1 % (47-70); Platelet Count 165 K/mm3 (150-450); RBC Distribution Width CV 14.5 % (11.6-14.6); RBC Distribution Width SD 46.5 fl (35.1-43.9); Red Blood Count 4.08 M/mm3 (4.6-6.2); White Blood Count 7.5 K/mm3 (4.4-11.0)
[2024-07-03 03:57] LABS: Anion Gap 17 (5-15); BUN 46 mg/dL (4-19); BUN/Creat Ratio 8.2 RATIO (10-20); Calcium,Total 8.6 mg/dL (7.6-11.0); Chloride 103 mmol/L (98-108); Creatinine, Serum 5.65 mg/dL (0.70-1.20); EST Glomerular Filtration Rate 10 (>60); Estimated Creatinine Clearance 13.03 ml/min (50-250); Glucose 86 mg/dL (70-99); Sodium Level 138 mmol/L (133-145)
[2024-07-03 06:26] LABS: Bedside Glucose 86 mg/dL (74-106)
--- NOTE | 2024-07-03 06:41 | PCM.PRE.AN2 ---
ASA Classification* ASA Classification ASA Classification: 4 Assessment & Plan Anesthesia* Anesthesia Assessment Anesthesia Assessment: Discussed sedation and/or anesthesia options, risks, benefits, and alternatives with patient/parents/legal guardian/POA. Questions invited. The patient/parents/legal guardian/POA seems to understand and agrees to proceed with anesthesia plan. Reviewed the physical assessment, medical history, allergy history and patient home medications list prior to surgery/procedure/anesthetic and documented any changes. Performed airway and anesthesia risk assessments. Anesthesia Type Anesthesia Type: MAC History Source History Obtained from:: Patient and Chart Anesthesia Focused Assessment* Temperature: 98.5 F Pulse Rate: 70 Blood Pressure: 158/77 Respiratory Rate: 17 Pulse Ox: 98 Oxygen Delivery Method: Room Air Airway Assessment Mouth opens: >3 cm Mallampati Score: III Teeth Condition: Dentures (Patient has full upper and lower dentures. They are out.) Neck Range of motion (ROM): Full ROM Focused Labs Anesthesia Preop lab: CBC WBC 7.5 K/mm3 (4.4-11.0) 07/03/24 03:15 07/03/24 RBC 4.08 M/mm3 (4.6-6.2) L 07/03/24 03:15 07/03/24 Hgb 11.9 g/dL (13.0-16.5) L 07/03/24 03:15 07/03/24 Hct 35.5 % (40-54) L 07/03/24 03:15 07/03/24 Plt Count 165 K/mm3 (150-450) 07/03/24 03:15 07/03/24 CHEMISTRY Potassium 4.0 mmol/L (3.3-5.1) 07/03/24 03:15 07/03/24 Sodium 138 mmol/L (133-145) 07/03/24 03:15 07/03/24 Magnesium 1.8 mg/dL (1.5-2.2) 07/01/24 03:59 07/01/24 Phosphorus 5.5 mg/dL (2.7-4.5) H 07/01/24 03:59 07/01/24 BUN 46 mg/dL (4-19) H 07/03/24 03:15 07/03/24 Creatinine 5.65 mg/dL (0.70-1.20) H 07/03/24 03:15 07/03/24 Glucose 86 mg/dL (70-99) 07/03/24 03:15 07/03/24 POC Glucose 86 mg/dL (74-106) 07/03/24 06:06 07/03/24 TSH 5.42 uIU/mL (0.358-3.74) H 12/28/21 08:17 12/28/21 COAG PT 15.8 SECONDS (11.7-14.9) H 06/27/24 16:45 06/27/24 Pre-Assessment Diagnosis/Proposed Procedure Planned Operative Procedure(s): Right possible left chest tunneled dialysis catheter placement. Anesthesia History Anesthesia History - electroplater automatic: Anesthesia History - electroplater automatic Hx Hospitalization Any Problems With Anesthesia Cholinesterase deficiency You/Your Family Experience fever (hyperthermia) with Relationship Recent Exposure to Contagious Disease Does patient have nerve stimulator Patient instructed to have device shut off --Does patient have Pacemaker or ICD? When Was Last Pacemaker Check QUESTION #4 FULL TEXT: You/Your Family Experience fever (hyperthermia) with Anesthesia Last Oral Intake Last Oral intake: Last Oral Intake NPO since Meds taken in AM with sips of water? Meds patient instructed to take am of surgery Any additional information?: Yes NPO since: 00:00 Meds taken in AM with sips of water?: No PONV PONV - electroplater automatic: PONV - electroplater automatic Female HX of Motion Sickness HX of N/V After Surgery Non-Smoker Duration of Surgery greater than 60 minutes Number of Risk Factors PONV Score Height & Weight Height & Weight: Anesthesia: Height & Weight Height 5 ft 9 in 07/02/24 09:33 Weight: 79.2 kg 07/03/24 04:17 Body Mass Index (BMI) 25.8 07/03/24 04:17 Respiratory Assessment Respiratory Assessment - electroplater automatic: Respiratory Tract Infection Hx - electroplater automatic Hx Respiratory Tract Infection Any additional information?: Yes Hx Respiratory Tract Infection: Yes (Patient currently has MSSA in his sputum.) STOP Sleep Apnea STOP Sleep Apnea - electroplater automatic: STOP Sleep Apnea - electroplater automatic Hx Hypertension Yes 06/30/24 15:13 Hx Sleep Apnea No 06/27/24 09:10 CPAP BIPAP Do you snore loudly (louder No 06/27/24 09:10 than talking or can be heard Do you often feel tired/ No 06/27/24 09:10 fatigued/ sleepy during daytime? Has anyone observed you stop No 06/27/24 09:10 breathing during sleep? STOP Results Negative 06/27/24 09:10 QUESTION #5 FULL TEXT : Do you snore loudly (louder than talking or can be heard through closed doors)? 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 Specify any problems Hx of Preganancy in last 3 N/A 06/27/24 09:10 Months [facility] 09:10 & Questions: Date: 06/27/24 06/27/24 09:10 Time: 13:10 06/27/24 09:10 Patient unable to answer at this time (ie. confused, unrespo /Reproduction History /Reproductive History - electroplater automatic: /Reproductive Hx- electroplater automatic Hx Now Gestational Age (in weeks): EDC: Hx Hx Para Hx Section SAB Active Medications Active Medications: Current Medications Generic Name Dose Route Start Last Admin Trade Name Freq PRN Reason Stop Dose Admin Acetaminophen 650 mg 06/29/24 12:00 06/30/24 18:03 Acetaminophen 650 Mg/20 Ml Udc GT 650 mg Q6H PRN PRN Administration Pain 1-10 or Fever Carvedilol 3.125 mg 07/03/24 08:00 Car[facility] 3.125 [facility] Chlorhexidine Gluconate 15 ml 06/29/24 10:00 07/02/24 21:08 Chlorhexidine 15 Ml PO Not Given BID INOCENTE Chlorhexidine Gluconate 1 each 06/29/24 10:00 07/02/24 07:40 Chlorhexidine Gluc 2% Cloth 1 Each [place] TOPICAL 1 each DAILY INOCENTE Administration Glucagon 1 mg 06/27/24 16:17 Glucagon 1 Mg/Ml Syringe IM X1 PRN Hypoglycemia Protocol Heparin Sodium (Porcine) 5,000 unit 06/27/24 10:00 07/01/24 10:25 Heparin Injection (Vial) 5,000 Unit/Ml Vial SC 5,000 unit Q12 INOCENTE Administration Pantoprazole Sodium 40 mg/ 110 mls @ 330 mls/hr 06/27/24 10:00 07/02/24 09:08 Sodium Chloride IV Infused Q24 INOCENTE Infusion Dextrose 250 mls @ 0 mls/hr 06/27/24 16:17 06/29/24 18:04 Dextrose 10%-Water IV Infused .Q0M PRN Infusion HYPOGLYCEMIA Protocol As Directed Cefepime HCl 0.5 gm/ Sodium 50 mls @ 100 mls/hr 06/30/24 10:00 07/02/24 15:13 Chloride IV 07/05/24 10:01 Infused Q24 INOCENTE Infusion Sodium Chloride 100 mls @ 15 mls/hr 06/29/24 14:43 06/30/24 19:15 IV 0 mls/hr .Q6H40M PRN Infusion Saline Flush Sodium Chloride 100 mls @ 15 mls/hr 06/29/24 14:43 IV .Q6H40M PRN Additional IVPB Infusion Insulin Human Lispro 0 unit 07/02/24 16:30 07/03/24 06:08 Insulin Lispro 100 Unit/Ml Insuln.Pen SC Not Given ACHS INOCENTE Protocol Senna/Docusate Sodium 2 tablet 07/01/24 10:00 07/02/24 21:10 Senna/Docusate Sodium 1 Tablet PO Not Given BID INOCENTE Sodium Chloride 10 - 40 ml 06/27/24 13:18 07/02/24 10:27 0.9% Saline Lock 10 Ml Syringe IV 20 ml UD PRN Administration SALINE FLUSH [facility] Medical History Tobacco use HTN (hypertension) HTN (hypertension) Hearing problem Back problem Seasonal allergies Home Medications ?Medication ?Instructions ?Recorded ?Last Taken ?Type blood sugar diagnostic (Accu-Chek #10 ea 07/09/19 Unknown History Erika Plus test strips) blood-glucose meter (Accu-Chek #1 ea 07/09/19 Unknown History Erika Plus Meter) blood pressure monitor (Blood #1 ea 09/29/21 Unknown Rx Pressure Kit) compr.stocking,knee,long,large #12 ea 09/29/21 Unknown Rx amlodipine 10 mg tablet 10 mg PO DAILY #30 tabs 04/15/24 Unknown Rx valsartan 320 mg tablet 320 mg PO DAILY #30 tabs 04/15/24 Unknown Rx Allergy/AdvReac Type Severity Reaction Status Date / Time ciprofloxacin (From Cipro) Allergy Hives Verified 06/27/24 05:05 ciprofloxacin HCl (From Allergy Hives Verified 06/27/24 05:05 Cipro) meperidine HCl (From Demerol) AdvReac Other Verified 06/27/24 05:05 Family History Other Hypertension Surgical History History of hernia repair Social History Smoking Status: Heavy Smoker (>10/day) Tobacco: How many years used: 20 second hand exposure: Yes alcohol intake: never substance use type: does not use what type of physical activity do you participate in: walking frequency: daily duration: 60-90 minutes/day Review of Systems (Anesthesia) ROS Narrative System reviewed and no additional complaints, except as documented.
[2024-07-03] MEDS: 0.9% Normal Saline (500mL Bag) 500 ML 15 ML IV (07:01)
--- NOTE | 2024-07-03 07:11 | PN.HOSP_ITS ---
Reason for Visit Reason for Visit: Shortness of breath Subjective Subjective Patient sitting up in a chair eating breakfast. He states he is doing well. No issues overnight. Tunneled dialysis catheter placed this morning. Discussed overall plan of care with probable discharge Sunday after dialysis as long as we get clearance for dialysis as an outpatient for next Sunday. I discussed with him that we would talk to case management on Sunday. Patient is clinically doing well. Objective Data Objective Data Vital Signs: Vital Signs Temp Pulse Resp BP Pulse Ox O2 Del Method O2 Flow Rate 98.5 F 70 17 158/77 H 98 Room Air 40 07/03/24 06:44 07/03/24 06:44 07/03/24 06:44 07/03/24 06:44 07/03/24 06:44 07/03/24 06:54 07/03/24 06:44 FiO2 25 07/03/24 06:44 Oxygen Flow Rate (L/min) 40 Oxygen Delivery Method Room Air Weight: 79.2 kg Body Mass Index (BMI) 25.7 Intake & Output: Intake and Output for Last 24 Hours 07/01/24 07/02/24 07/03/24 23:59 23:59 23:59 Intake Total 1237.61 / 1250.21 624.09 / 624.09 Output Total 1100 / 1100 4195 / 4195 Balance 137.61 / 150.21 -3570.91 / -3570.91 Lab / Micro Data 07/03/24 03:15 07/03/24 03:15 Labs: Laboratory Results - last 24 hr 07/01/24 08:00: Cycl Citrul Peptide IgG 8, HASEEB Screen Negative, c-ANCA Antibody <1:20, Atypical p-ANCA <1:20, p-ANCA Antibody <1:20 07/02/24 11:28: Hep Bs Antigen Nonreactive 07/02/24 11:51: POC Glucose 84 07/02/24 16:31: POC Glucose 94 07/02/24 21:07: POC Glucose 81 07/03/24 03:15: WBC 7.5, RBC 4.08 L, Hgb 11.9 L, Hct 35.5 L, MCV 87.0, MCH 29.2, MCHC 33.5, RDW Std Deviation 46.5 H, RDW Coeff of Hallie 14.5, Plt Count 165, MPV 10.8, Immature Gran % (Auto) 0.700, Neut % (Auto) 69.1, Lymph % (Auto) 9.4 L, M molina % (Auto) 10.3 H, Eos % (Auto) 9.8 H, Baso % (Auto) 0.7, Absolute Neuts (auto) 5.2, Absolute Lymphs (auto) 0.70 L, Nucleated RBC % 0, Sodium 138, Potassium 4.0, Chloride 103, Carbon Dioxide 18.0 L, Anion Gap 17 H, BUN 46 H, C reatinine 5.65 H, Estim Creat Clear Calc 13.03 L, Est GFR (MDRD) Non-Af 10 L, B UN/Creatinine Ratio 8.2 L, Glucose 86, Calcium 8.6 07/03/24 06:06: POC Glucose 86 Micro: Microbiology 06/30/24 09:27 Sputum, Induced/Lukens Gram Stain - Final 06/30/24 09:27 Sputum, Induced/Lukens Respiratory Culture - Final Staphylococcus aureus 06/27/24 05:55 Blood Culture (Wb) - Left Forearm Blood Culture - Final No growth in 5 days. 06/27/24 05:40 Blood Culture (Wb) - Anticubital Left Blood Culture - Final No growth in 5 days. 06/30/24 10:30 Nasal Secretion MRSA (PCR) - Final 06/27/24 14:15 Sputum, Induced/Lukens Gram Stain - Final 06/27/24 14:15 Sputum, Induced/Lukens Respiratory Culture - Final Mixed normal respiratory michael. No Streptococcus pneumoniae, beta-hemolytic Streptococcus or Staphylococcus aureus isolated. Rhythm Strip Rhythm Strip: Sinus Rhythm Rate: 90 Ectopy: None Physical Exam Narrative General: Alert, Oriented x3, Cooperative, moderate respiratory distress HEENT: Atraumatic, PERRLA, EOMI, Normocephalic Oral: Moist Mucosa Neck: Supple, No JVD Lungs: Diminished, Normal air movement, No rhonchi, No wheeze, rales, tachypneic Cardiovascular: Regular rate, Regular Rhythm, Normal S1, Normal S2, No murmurs Abdomen: Soft, Non Tender, Non-Distended, No Hepato-splenomegaly Extremities: Edema, Capillary Refill Less than 3 Seconds Skin: No rashes, No breakdown Musculoskeletal: No Tenderness to Palpation of Joints or Extremities Neurological: No focal neurological deficits, moves all extremities Psych/Mental Status: Flat Const alert, oriented x3, no apparent distress and average body habitus; Negative for healthy appearing Constitutional Narrative: Upper middle-aged, white male, appears older than stated age, sitting up in bed on room air, extubated, at bedside General Appearance: intubated and patient mechanically ventilated HEENT normocephalic, head/scalp atraumatic and moist oral mucous membranes Eyes PERRL and conjunctivae normal Eyes Narrative: Mild conjunctival pallor bilaterally, pupils are pinpoint due to fentanyl use Neck supple and no JVD Neck Narrative: Right IJ temporary dialysis catheter in place Resp normal respiratory effort, no retractions, no use of accessory muscles and clear to auscultation bilaterally Resp Narrative: Scattered rhonchi, remains on ventilator with minimal settings Auscultation: Negative for crackles, rales, rhonchi or wheezes Cardio regular rate, regular rhythm, S1 normal heart sound, S2 normal heart sound, no murmurs, no rub, no gallops and no clicks GI normal to inspection, nondistended, normoactive bowel sounds, soft to palpation, non-tender and non-distended; Negative for hepatosplenomegaly Extremity no clubbing, cyanosis or edema Extremity Narrative: Pedal pulses are 2+ Skin no rashes or lesions noted Neuro oriented x3, moves all extremities and no focal motor deficits Neuro Narrative: Generalized weakness noted but no focal deficits, voice is weak Sensorium / Orientation: awake, alert and sedated on vent Speech: Negative for speech normal Psych affect normal Psych Narrative: Eye contact is good and patient interacts appropriately Appearance: intubated Assessment & Plan Assessment/Plan (1) HFrEF (heart failure with reduced ejection fraction): (2) Elevated troponin: (3) Acute hypoxic respiratory failure: (4) Acute metabolic acidosis: (5) LG (acute kidney injury): (6) Pulmonary vascular congestion: (7) Metabolic acidosis: PLAN: Plan Acute hypoxic respiratory failure secondary to severe pulmonary edema - Extubated 07/02/2024 -Remains on room air -Continue pulmonary toilet as able - I-S/Acapella MSSA tracheobronchitis -Discontinue cefepime and start oral antibiotics with amoxicillin to complete treatment will need 4 more days - Aggressive pulmonary toilet - No infiltrate noted on exam and auscultation is unremarkable - Patient stable on room air Fever - Fever curve is improving and resolved likely related to MSSA tracheobronchitis Troponin elevation - Highly suspect related to demand ischemia from above -Echocardiogram from 06/27/2024 demonstrated EF of 35% with moderate mitral valve insufficiency and severe global hypokinesis of the LV - Plan is for outpatient cardiology follow-up after discharge Acute HFrEF - Global hypokinesis with no wall motion abnormality -EF 35% on echo from 06/27/2024 - Plan is to initiate goal-directed therapy as tolerated - Continue carvedilol 3.125 twice daily today - Start hydralazine 10 mg twice daily - If patient will tolerate will add nitrate tomorrow - Will need outpatient cardiology follow-up - Cardiology has signed off LG on CKD stage IV with concurrent metabolic acidosis - Suspect this is related to uncontrolled DM-2 - Continue intermittent HD per nephrology -Tunneled dialysis catheter in place -Next dialysis is planned for Sunday - Continue to monitor and transition to tunneled dialysis catheter when able Acute on chronic anemia - Hemoglobin was 6.0 on 06/28/2024 - Patient was transfused 3 units of packed red blood cells -Hemoglobin down to 5.6 a.m. on 08/01/2024--> will transfuse 3 units - Hemoglobin today is 11.9 and stable - Monitor closely - EPO per nephrology -Reinitiate DVT prophylaxis Essential hypertension -Continue Coreg 3.125 twice daily -Start hydralazine 10 mg twice daily - Continue PRNs - Had previously been on amlodipine and valsartan Thrombocytopenia -Resolved DM-2 - Fasting blood sugar this morning was 97 - Continue SSI but transition to AC - Renal diet initiated DVT/GI prophylaxis -Restart subcu heparin -Discontinue Protonix CODE STATUS -Full code Charges/Coding Visit Charges Inpatient E&M: 92787 Subs Hosp L2
--- NOTE | 2024-07-03 07:25 | PCM.PN.INT ---
Assessment & Plan Assessment/Plan (1) Acute hypoxic respiratory failure: (2) Acute metabolic acidosis: (3) LG (acute kidney injury): (4) Elevated troponin: PLAN: Plan RECOMMENDATIONS: 1. Continue antibiotics to complete 7 days of therapy. 2. Continue to monitor H&H and transfuse if hemoglobin drops below 7 g/dL. 3. Ongoing dialysis support per nephrology recommendations. 4. Encourage incentive spirometer use and mobilize patient as tolerated. 5. The patient is medically stable for transfer out of the intensive care unit. Will sign off from a critical care perspective. IMPRESSIONS: 1. Acute on chronic kidney disease with concurrent metabolic acidosis Likely secondary to progressive chronic kidney disease in the setting of diabetes mellitus with history of proteinuria. Nephrology is currently following to assist with ongoing hemodialysis needs. The patient underwent successful tunneled dialysis catheter placement on July 03. 2. Acute hypoxemic respiratory failure Resolved. Secondary to pulmonary edema in the setting of progressive kidney disease, hypervolemia and hypertension. The patient's respiratory status has improved with hemodialysis. In addition, the patient developed fevers with sputum culture that was positive for MSSA. He appears to have defervesced with antimicrobial therapy, which I would recommend be continued for a total of 7 days. Encourage incentive spirometer use and mobilize patient as tolerated. 3. Anemia Stable. Continue to monitor blood counts and transfuse if hemoglobin drops below 7 g/dL. Continue PPI therapy as ordered. 4. Troponin elevation Clinical concern for underlying demand ischemia in the setting of numbers 1 and 2. Continue current supportive care. 5. History of hypertension/diabetes mellitus/chronic back pain Complicates care, management, recovery and prognosis. Continue supportive care as noted above. This note was generated with [employer] dictation software. It may contain incorrect words, spelling, and punctuation that were not noted in checking the note before signing. Subjective Subjective The patient was seen and examined at the bedside this morning. Events from the last 24 hours have been reviewed. The patient is currently afebrile, hemodynamically stable and maintaining appropriate oxygen saturations on room air. The patient has done well from a respiratory perspective following extubation yesterday. He is documented to be overall net -6 L for the hospitalization. White blood cell count is normal. Hemoglobin is stable at 11.9 g/dL. Platelet count is within normal limits. The patient underwent successful tunneled dialysis catheter placement this morning. Objective Data Objective Data The patient's most recent lab work, culture data and imaging studies have all been personally reviewed. Sputum culture dated June 30 was positive for MSSA. Vital Signs: Vital Signs Temp Pulse Resp BP Pulse Ox O2 Del Method O2 Flow Rate 98.5 F 70 17 158/77 H 98 Room Air 40 07/03/24 06:44 07/03/24 06:44 07/03/24 06:44 07/03/24 06:44 07/03/24 06:44 07/03/24 06:54 07/03/24 06:44 FiO2 07/03/24 06:44 Oxygen Flow Rate (L/min) 40 Oxygen Delivery Method Room Air Weight: 174 lb 9.698 oz Body Mass Index (BMI) 25.7 Intake & Output: Intake and Output for Last 24 Hours 07/01/24 07/02/24 07/03/24 23:59 23:59 23:59 Intake Total 1237.61 / 1250.21 624.09 / 624.09 Output Total 1100 / 1100 4195 / 4195 Balance 137.61 / 150.21 -3570.91 / -3570.91 Lab / Micro Data Attestation: I reviewed the patient's lab results. 07/03/24 03:15 07/03/24 03:15 Labs: Laboratory Results - last 24 hr 07/01/24 08:00: Cycl Citrul Peptide IgG 8, HASEEB Screen Negative, c-ANCA Antibody <1:20, Atypical p-ANCA <1:20, p-ANCA Antibody <1:20 07/02/24 11:28: Hep Bs Antigen Nonreactive 07/02/24 11:51: POC Glucose 84 07/02/24 16:31: POC Glucose 94 07/02/24 21:07: POC Glucose 81 07/03/24 03:15: WBC 7.5, RBC 4.08 L, Hgb 11.9 L, Hct 35.5 L, MCV 87.0, MCH 29.2, MCHC 33.5, RDW Std Deviation 46.5 H, RDW Coeff of Hallie 14.5, Plt Count 165, MPV 10.8, Immature Gran % (Auto) 0.700, Neut % (Auto) 69.1, Lymph % (Auto) 9.4 L, Bee % (Auto) 10.3 H, Eos % (Auto) 9.8 H, Baso % (Auto) 0.7, Absolute Neuts (auto) 5.2, Absolute Lymphs (auto) 0.70 L, Nucleated RBC % 0, Sodium 138, Potassium 4.0, Chloride 103, Carbon Dioxide 18.0 L, Anion Gap 17 H, BUN 46 H, Creatinine 5.65 H, Estim Creat Clear Calc 13.03 L, Est GFR (MDRD) Non-Af 10 L, BUN/Creatinine Ratio 8.2 L, Glucose 86, Calcium 8.6 07/03/24 06:06: POC Glucose 86 Micro: Microbiology 06/30/24 09:27 Sputum, Induced/Lukens Gram Stain - Final 06/30/24 09:27 Sputum, Induced/Lukens Respiratory Culture - Final Staphylococcus aureus 06/27/24 05:55 Blood Culture (Wb) - Left Forearm Blood Culture - Final No growth in 5 days. 06/27/24 05:40 Blood Culture (Wb) - Anticubital Left Blood Culture - Final No growth in 5 days. 06/30/24 10:30 Nasal Secretion MRSA (PCR) - Final 06/27/24 14:15 Sputum, Induced/Lukens Gram Stain - Final 06/27/24 14:15 Sputum, Induced/Lukens Respiratory Culture - Final Mixed normal respiratory michael. No Streptococcus pneumoniae, beta-hemolytic Streptococcus or Staphylococcus aureus isolated. ABG Data ABG results: ABG 07/01/24 08:31 Specimen Type ART Sample Site R Brach pH 7.50 H Bicarbonate Actual 18.3 L Total CO2 19 Base Excess -5 L O2 Saturation 95 O2 % 25.0 ABG pCO2 23.7 L ABG pO2 66 L O2 Delivery Device Adult Vent Vent Mode CPAP/PS POC PEEP 5 Radiography Diagnostic Testing: Radiology Impression Venous Doppler Study 06/30/24 08:15 Interpretation Summary Deep veins of the bilateral lower extremities are patent and compressible segmentally. There is no evidence of bilateral lower extremity deep vein thrombosis. The bilateral great saphenous veins appear patent and compressible segmentally. Ordering Physician: Milagros Beebe Referring Physician: Karlos Trejo M.D. Performed By: Iveth Sanchez RVT Chest X-Ray 06/30/24 08:52 IMPRESSION: Stable support devices as described. Small bilateral pleural effusions and atelectasis. Reading Location: [facility] Abdomen/Pelvis CT 07/01/24 04:55 IMPRESSION: Partially imaged bilateral left larger appearing than right pleural effusions with associated adjacent partial imaged passive collapse, atelectasis. Some liquid appearing material is seen in the distal and lower colon mixed with some fecal material may correlate for evidence of blood, nonspecific. No peritoneal free fluid seen. Partially imaged three-vessel moderate to heavy appearing coronary calcification. Appearance of the liver suggesting cirrhosis, clinically correlate. Reading Location: [facility] Rhythm Strip Rhythm Strip: Sinus Rhythm Rate: 90 Ectopy: None Physical Exam Const alert, oriented x3 and no apparent distress General Appearance: cooperative and well developed HEENT normocephalic, head/scalp atraumatic and moist oral mucous membranes Eyes PERRL, EOMs intact bilaterally and conjunctivae normal Neck supple General: trachea midline Chest inspection of chest normal Resp normal respiratory effort Auscultation: diminished lung sounds; Negative for rales, rhonchi or wheezes Cardio regular rate, regular rhythm, S1 normal heart sound and S2 normal heart sound GI soft to palpation and non-tender Extremity no clubbing, cyanosis or edema Skin no rashes or lesions noted Neuro oriented x3, CN's II-XII intact bilaterally and moves all extremities Psych cooperative and affect normal Charges/Coding Visit Charges Inpatient E&M: 49988 Subs Hosp L3
[2024-07-03] MEDS: Cefazolin 2 GM in Syringe IV (07:35)
[2024-07-03] MEDS: Lidocaine 1% /Epi 1:100 (20ml) 20 ML Vial (07:45)
[2024-07-03] MEDS: Heparin 10,000 UNITS/10 ML Vial 10000 UNITS (07:52)
--- NOTE | 2024-07-03 07:57 | PCM.OPRPT ---
Operative Report (Standard) Operative Information Date of Procedure: 07/03/24 Pre-Operative Diagnosis: Acute on chronic kidney injury Post-Operative Diagnosis: Same Surgery/Procedure Performed: Ultrasound and fluoroscopy guided right chest tunneled dialysis catheter placement utilizing right IJ fire hydrant mechanic: No Type of Anesthesia: Local MAC RN Documented Start/Stop Times: Operation Date: 07/03/24 07:30 Case Time Into Pre-Op 07/03/24 06:39 Out of Pre-Op 07/03/24 07:20 Anesthesia Start 07/03/24 07:26 Into Room 07/03/24 07:26 Procedure Start Time: 07:45 Procedure Stop Time: 07:58 Select all DRAINS/GRAFTS/IMPLANTS that apply: Implanted device Implanted device details: 23 cm palindrome curved dialysis catheter Estimated Blood Loss: 5 Specimen collected: No Description of surgery: Patient was brought back to the operating room and MAC anesthesia was induced. The right neck and chest were prepped and draped in usual sterile fashion. Ultrasound was used to localize the right IJ. It was marked. The area was injected with local anesthetic as well as an area on the chest. An incision was made in the neck and then under ultrasound guidance the IJ was accessed and a guidewire was placed without resistance. Next serial dilators were placed over the wire and then the peel-away sheath was placed and the wire was removed. The peel-away sheath was capped. The catheter was then tunneled from the lower incision to the upper incision. It was placed through the peel-away sheath under fluoroscopy guidance. The peel-away sheath was removed. Each catheter was aspirated and flushed with saline and they both aspirated and flushed easily. The small neck incision was closed with a 3-0 Vicryl suture. The catheter was sutured to the skin using 3-0 nylon. Next each port was instilled with 2 cc of heparinized saline and then clamped and capped. Dressings were applied and patient was brought to PACU in stable condition where chest x-ray will be obtained. Surgical Findings: None Complications Complications: No
--- NOTE | 2024-07-03 08:00 | RAD_ITS ---
EXAM: Chest radiograph. CLINICAL HISTORY: Line placement. COMPARISON: 06/27/2024. TECHNIQUE: Single-view. FINDINGS: The cardiac silhouette remains mildly enlarged. Mild decrease in central pulmonary venous congestion. Endotracheal tube has been removed. Enteric feeding tube has been removed. Right internal jugular double-lumen central catheter is in good position with its tip in the superior vena cava. RAD/CXR for Line Placement IMPRESSION: Right internal jugular central catheter is in good position. Reading Location: [facility]
--- NOTE | 2024-07-03 08:17 | PCM.POST.ANE ---
Anesthesia: Postop Eval I Current Vital Signs Temperature: 97.4 F Pulse Rate: 72 Blood Pressure: 157/78 Respiratory Rate: 14 Pulse Ox: 95 Oxygen Delivery Method: Room Air Assessment Airway patent: Yes Spontaneous unlabored respirations: Yes Mental status: Awake nausea: No Vomiting: No Anesthesia Complication: No Fluid Hydration Crystalloid volume administer (ml): 200 Total IV fluid infused: 200 Progress Note Anesthesia document: Postop Eval 1 completed: Yes
--- NOTE | 2024-07-03 09:31 | CASEMGMT ---
Addendum entered by Larissa Garg 07/03/24 09:40: Tunneled cath report and CXR uploaded to the [email or web address] Portal Original Note: Pt states that she has brought in paperwork that may help quicken the pt's insurance pending application. Rosemary from [employer] states that she will do what she can to get the [employer] application process expedited. This RN CM also questioned if the pt could apply for [facility], seeing that the pt is 64 and may qualify. SW aware and to f/u with the pt today. TC received from Radha Holly (Marni). Marni states that they cannot do a chair time of 1245pm as originally planned. Marni states that the pt will have to be at the center at 0950 on his first appointment. Pt and pt aware and deny concerns. Marni states that she is unsure if they can get the pt on their finalized schedule with the pending insurance and to contact the admissions counselor through [email or web address]. TC to Hortencia ([email or web address] Produce Specialist) at this time to f/u. No answer, left. Per the [email or web address] admissions portal, [email or web address] has received all of their required documents. CM to follow.
[2024-07-03] MEDS: Acetaminophen 650 MG/20 ML UDC PO (10:15)
[2024-07-03] MEDS: Pantoprazole Sodium 40 MG in 0.9% Normal Saline (100mL MB+) 100 ML 330 MG IV (10:16)
[2024-07-03] MEDS: Carvedilol 3.125 MG TABLET PO ×2 (10:17→16:02)
[2024-07-03 11:24] LABS: Bedside Glucose 179 mg/dL (74-106)
[2024-07-03] MEDS: Cefepime HCl 0.5 GM in 0.9% Normal Saline (50mL Bag) 50 ML IV (11:33)
--- NOTE | 2024-07-03 11:35 | CASEMGMT ---
Addendum entered by Michell Linder 07/03/24 16:08: SW followed up with pt who states that his is working on medicare application and stepped out of the room to do so. Pt denies having any questions or concerns about application at this time. MARCELA remains available to follow. MARIA ISABEL Becerra Original Note: Social Work- SW met with pt and to discuss resources and insurance coverage. brought income verification for [employer] rep to submit with [employer] application. Application process started yesterday. SW provided education and printables (including phone number and website) for medicare sign up. Pt reports that he prefers online. Pt utilized online method to sign up for her benefits previously and is familiar with the system. SW strongly encouraged pt to complete process this morning. SW provided education and printables for social security disability sign up, including phone number and website. SW discussed VA benefits, as pt served for 2 years in the [employer] [[email or web address]] and was honorably discharged. Pt reports that he has not used VA services in the past and does not believe that he has ever provided DD-214 for benefits, although pt does report having DD-214 papers at home. MARCELA called VA and left a voicemail to determine service connectedness for certain. 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 MARCELA found information online including contacts and plan number for pt to determine if there is a possibility that pt could receive a pension. MARCELA found information that indicated that anyone under 20 years of service would not receive a pension, but encouraged pt to call and verify potential benefits. Pt and have no additional requests for information at this time. MARCELA remains available to follow. MARIA ISABEL Becerra
--- NOTE | 2024-07-03 12:00 | CASEMGMT ---
Hortencia @ [facility] states that she sent an expedited e-mail to their financial department. Hortencia states that she has not heard anything back yet but will keep us posted. Hortencia continues to state that [facility] does not do Sunday start times and that the earliest that the pt can start OP HD is next Sunday, 07/08. Dr. Beebe notified and aware. Pt to receive HD at [facility] on Sunday and potentially DC subsequently. CM to follow.
--- NOTE | 2024-07-03 12:32 | PN.RENAL_ITS ---
Subjective Subjective No overnight events. Ambulating in room. Working with therapy. at bedside. Objective Data Objective Data Vital Signs: Vital Signs Temp Pulse Resp BP Pulse Ox O2 Del Method O2 Flow Rate 98.9 F 72 18 131/73 H 96 Room Air 40 07/03/24 12:00 07/03/24 12:00 07/03/24 12:00 07/03/24 12:00 07/03/24 12:00 07/03/24 12:00 07/03/24 06:44 FiO2 07/03/24 06:44 Oxygen Flow Rate (L/min) 40 Oxygen Delivery Method Room Air Weight: 79.2 kg Body Mass Index (BMI) 25.7 Intake & Output: Intake and Output for Last 24 Hours 07/01/24 07/02/24 07/03/24 23:59 23:59 23:59 Intake Total 1237.61 / 1250.21 624.09 / 624.09 180 / 180 Output Total 1100 / 1100 4195 / 4195 Balance 137.61 / 150.21 -3570.91 / -3570.91 180 / 180 Lab / Micro Data 07/03/24 03:15 07/03/24 03:15 Labs: Laboratory Results - last 24 hr 07/01/24 08:00: Cycl Citrul Peptide IgG 8, c-ANCA Antibody <1:20, Atypical p- ANCA <1:20, p-ANCA Antibody <1:20, QUYNH-1 Antibody Not Reportable, Double Strand DNA Ab Not Reportable 07/02/24 16:31: POC Glucose 94 07/02/24 21:07: POC Glucose 81 07/03/24 03:15: WBC 7.5, RBC 4.08 L, Hgb 11.9 L, Hct 35.5 L, MCV 87.0, MCH 29.2, MCHC 33.5, RDW Std Deviation 46.5 H, RDW Coeff of Hallie 14.5, Plt Count 165, MPV 10.8, Immature Gran % (Auto) 0.700, Neut % (Auto) 69.1, Lymph % (Auto) 9.4 L, M molina % (Auto) 10.3 H, Eos % (Auto) 9.8 H, Baso % (Auto) 0.7, Absolute Neuts (auto) 5.2, Absolute Lymphs (auto) 0.70 L, Nucleated RBC % 0, Sodium 138, Potassium 4.0, Chloride 103, Carbon Dioxide 18.0 L, Anion Gap 17 H, BUN 46 H, C reatinine 5.65 H, Estim Creat Clear Calc 13.03 L, Est GFR (MDRD) Non-Af 10 L, B UN/Creatinine Ratio 8.2 L, Glucose 86, Calcium 8.6 07/03/24 06:06: POC Glucose 86 07/03/24 11:06: POC Glucose 179 H Micro: Microbiology 07/01/24 08:00 Blood Culture (Wb) - Left Wrist Blood Culture - Preliminary No growth in 48 hours. 07/01/24 08:00 Blood Culture (Wb) - Right Forearm Blood Culture - Preliminary No growth in 48 hours. 07/01/24 11:03 Urine Catheter - Catheter Urine Culture - Final Culture exhibits no growth. 06/30/24 09:27 Sputum, Induced/Lukens Gram Stain - Final 06/30/24 09:27 Sputum, Induced/Lukens Respiratory Culture - Final Staphylococcus aureus 06/27/24 05:55 Blood Culture (Wb) - Left Forearm Blood Culture - Final No growth in 5 days. 06/27/24 05:40 Blood Culture (Wb) - Anticubital Left Blood Culture - Final No growth in 5 days. 06/30/24 10:30 Nasal Secretion MRSA (PCR) - Final 06/27/24 14:15 Sputum, Induced/Lukens Gram Stain - Final 06/27/24 14:15 Sputum, Induced/Lukens Respiratory Culture - Final Mixed normal respiratory michael. No Streptococcus pneumoniae, beta-hemolytic Streptococcus or Staphylococcus aureus isolated. Radiography Diagnostic Testing: Radiology Impression Chest X-Ray 07/03/24 08:00 IMPRESSION: Right internal jugular central catheter is in good position. Reading Location: [place] [address] Rhythm Strip Rhythm Strip: Sinus Rhythm Rate: 90 Ectopy: None Physical Exam Narrative Intubated. No acute distress noted S1, S2, RRR Lung sounds clear anteriorly Abdomen soft Nonpitting edema bilateral lower legs Tunneled hemodialysis catheter right chest dressing clean, dry and intact Assessment & Plan Assessment/Plan (1) LG (acute kidney injury): (2) CKD (chronic kidney disease) stage 4, GFR 15-29 ml/min: (3) Acute metabolic acidosis: (4) Acute hypoxic respiratory failure: PLAN: Plan Assessment/Plan: The patient is a 64-year-old male with past history of CKD stage G4, type 2 diabetes mellitus, and hypertension. Patient presents to the hospital with acute hypoxic respiratory failure. Checks x-ray shows bilateral pleural effusion with pulmonary vascular congestion. He was also found to have severe renal dysfunction with creatinine of 9.20 mg/dL and severe acute metabolic acidosis with bicarbonate level of 9 mmol/L. Nephrology is asked to see the patient because of LG on CKD. - Acute kidney injury on chronic kidney disease stage G4--> now ESRD Patient has known CKD. Serum creatinine was already 3.53 mg/dL, EGFR 28 mL/min on 02/28/2022. Patient had 2+ proteinuria in February 2022 as well. Urine albumin to creatinine ratio was already 9.8 g/g at that time. Suspicion is progression of CKD which is likely due to diabetic kidney disease given prior history of proteinuria; now ESRD. UPEP was negative [facility] June 27. Patient underwent hemodialysis yesterday with around 3.5 L fluid removal. Tunneled hemodialysis catheter placed today. No acute indication for ORTHOPAEDIC NURSE today. Case management team arranging outpatient hemodialysis, dx: ESRD. Tentative outpatient hemodialysis schedule TTS, therefore will likely plan for dialysis Sunday. Assessment and plan reviewed with Dr. Collazo.
--- NOTE | 2024-07-03 14:25 | POSTOPAN2_ITS ---
Anesthesia Postop Eval I Sum Postop Eval Completion status Anesthesia document: Postop Eval 1 completed: Yes Anesthesia Postop Eval I Summary Anesthesia Postop Eval I Summary: Anesthesia Postop Eval I: Assessment Summary Airway patent Yes 07/03/24 08:17 GUEST RELATIONS RECEPTIONIST.HBARR Spontaneous unlabored Yes 07/03/24 08:17 GUEST RELATIONS RECEPTIONIST.HBARR respirations Mental status Awake 07/03/24 08:17 GUEST RELATIONS RECEPTIONIST.HBARR nausea No 07/03/24 08:17 GUEST RELATIONS RECEPTIONIST.HBARR Vomiting No 07/03/24 08:17 GUEST RELATIONS RECEPTIONIST.HBARR Anesthesia Postop Eval I: Fluid Summary Crystalloid volume administer 200 07/03/24 08:17 GUEST RELATIONS RECEPTIONIST.HBARR (ml) Colloids volume administered ( ml) Blood Product volume administered (ml) Total IV fluid infused 200 07/03/24 08:17 GUEST RELATIONS RECEPTIONIST.HBARR Anesthesia Postop Eval I: Summary Notes Anesthesia Complication No 07/03/24 08:17 GUEST RELATIONS RECEPTIONIST.HBARR Anesthesia Complication Comment: Post-operative progress note Anesthesia: Postop Eval II Evaluation Mental status: Awake and Calm Pain Level: 0 nausea: No Vomiting: No Complications Anesthesia Complication: No
--- NOTE | 2024-07-03 14:25 | PCM.POSTANE2 ---
Anesthesia Postop Eval I Sum Postop Eval Completion status Anesthesia document: Postop Eval 1 completed: Yes Anesthesia Postop Eval I Summary Anesthesia Postop Eval I Summary: Anesthesia Postop Eval I: Assessment Summary Airway patent Yes 07/03/24 08:17 TRAFFIC ENGINEERING DIRECTOR.HBARR Spontaneous unlabored Yes 07/03/24 08:17 TRAFFIC ENGINEERING DIRECTOR.HBARR respirations Mental status Awake 07/03/24 08:17 TRAFFIC ENGINEERING DIRECTOR.HBARR nausea No 07/03/24 08:17 TRAFFIC ENGINEERING DIRECTOR.HBARR Vomiting No 07/03/24 08:17 TRAFFIC ENGINEERING DIRECTOR.HBARR Anesthesia Postop Eval I: Fluid Summary Crystalloid volume administer 200 07/03/24 08:17 TRAFFIC ENGINEERING DIRECTOR.HBARR (ml) Colloids volume administered ( ml) Blood Product volume administered (ml) Total IV fluid infused 200 07/03/24 08:17 TRAFFIC ENGINEERING DIRECTOR.HBARR Anesthesia Postop Eval I: Summary Notes Anesthesia Complication No 07/03/24 08:17 TRAFFIC ENGINEERING DIRECTOR.HBARR Anesthesia Complication Comment: Post-operative progress note Anesthesia: Postop Eval II Evaluation Mental status: Awake and Calm Pain Level: 0 nausea: No Vomiting: No Complications Anesthesia Complication: No
[2024-07-03 15:27] LABS: Bedside Glucose 107 mg/dL (74-106)
[2024-07-03] MEDS: Senna/Docusate Sodium 1 Tablet 2 TABLET PO (20:15)
[2024-07-03] MEDS: Heparin Injection (Vial) 5,000 UNIT/ML VIAL 5000 UNIT SC (20:15)
[2024-07-03] MEDS: hydrALAZINE 10 MG Tablet PO (20:15)
[2024-07-03 20:40] LABS: Bedside Glucose 115 mg/dL (74-106)
[2024-07-04] VITALS (8 sets, daily range): BP systolic 145–185; BP diastolic 77–115; PULSE 64–88; RESP 18; TEMP 36.3–36.7; O2SAT 96–100; BMI 26.7
[2024-07-04] MEDS: Acetaminophen 650 MG/20 ML UDC PO (02:33)
[2024-07-04] MEDS: hydrALAZINE 20 MG/ML Vial 10 MG IV (02:34)
[2024-07-04 06:32] LABS: Hematocrit 36.2 % (40-54); Hemoglobin 11.9 g/dL (13.0-16.5); Mean Corp Hgb Conc 32.9 g/dL (32-36); Mean Corpuscular Hgb 28.9 pg (27.0-32.0); Mean Corpuscular Volume 87.9 fL (80-94); Mean Platelet Vol. 10.6 fl (6.2-12.0); Platelet Count 163 K/mm3 (150-450); RBC Distribution Width CV 14.1 % (11.6-14.6); RBC Distribution Width SD 45.7 fl (35.1-43.9); Red Blood Count 4.12 M/mm3 (4.6-6.2); White Blood Count 7.2 K/mm3 (4.4-11.0)
[2024-07-04 06:41] LABS: Bedside Glucose 90 mg/dL (74-106)
[2024-07-04 07:31] LABS: Albumin, Serum 3.3 g/dL (3.4-4.8); Anion Gap 19 (5-15); BUN 58 mg/dL (4-19); BUN/Creat Ratio 8.9 RATIO (10-20); Calcium,Total 8.4 mg/dL (7.6-11.0); Carbon Dioxide 16.4 mmol/L (21.0-32.0); Chloride 102 mmol/L (98-108); Creatinine, Serum 6.47 mg/dL (0.70-1.20); EST Glomerular Filtration Rate 9 (>60); Estimated Creatinine Clearance 11.38 ml/min (50-250); Glucose 89 mg/dL (70-99); Phosphorus 5.1 mg/dL (2.7-4.5); Sodium Level 138 mmol/L (133-145)
--- NOTE | 2024-07-04 07:51 | PCM.PN.HOSP ---
Reason for Visit Reason for Visit: Shortness of breath Subjective Subjective Patient states he woke up at about 3 AM and felt acutely short of breath but his vitals were fine when the nurse checked them. He states it almost felt like panic. He is requesting something for sleep as he states he is not sleeping very well here. We did discuss that that is uncommon after ICU admission. Will start melatonin 10 mg nightly. States his breathing feels fine now. Blood pressures are elevated and we discussed that I am uptitrating his medication for goal-directed therapy for heart failure. Objective Data Objective Data Vital Signs: Vital Signs Temp Pulse Resp BP Pulse Ox O2 Del Method O2 Flow Rate 98.0 F 77 18 182/82 H 97 Room Air 40 07/04/24 02:08 07/04/24 02:59 07/04/24 02:59 07/04/24 02:59 07/04/24 02:59 07/04/24 02:59 07/03/24 06:44 FiO2 25 07/03/24 06:44 Oxygen Flow Rate (L/min) 40 Oxygen Delivery Method Room Air Weight: 82.2 kg Body Mass Index (BMI) 26.7 Intake & Output: Intake and Output for Last 24 Hours 07/02/24 07/03/24 07/04/24 23:59 23:59 23:59 Intake Total 624.09 / 624.09 180 / 380 800 / 800 Output Total 4195 / 4195 Balance -3570.91 / -3570.91 180 / 380 800 / 800 Lab / Micro Data 07/04/24 05:30 07/04/24 05:30 Labs: Laboratory Results - last 24 hr 07/03/24 11:06: POC Glucose 179 H 07/03/24 15:06: POC Glucose 107 H 07/03/24 20:05: POC Glucose 115 H 07/04/24 05:30: WBC 7.2, RBC 4.12 L, Hgb 11.9 L, Hct 36.2 L, MCV 87.9, MCH 28.9, MCHC 32.9, RDW Std Deviation 45.7 H, RDW Coeff of Hallie 14.1, Plt Count 163, MPV 10.6, Sodium 138, Potassium 4.0, Chloride 102, Carbon Dioxide 16.4 L, Anion Gap 19 H, BUN 58 H, Creatinine 6.47 H, Estim Creat Clear Calc 11.38 L, Est GFR (MDRD) Non-Af 9 L, BUN/Creatinine Ratio 8.9 L, Glucose 89, Calcium 8.4, Phosphorus 5.1 H, Albumin 3.3 L 07/04/24 06:14: POC Glucose 90 Micro: Microbiology 07/01/24 08:00 Blood Culture (Wb) - Left Wrist Blood Culture - Preliminary No growth in 48 hours. 07/01/24 08:00 Blood Culture (Wb) - Right Forearm Blood Culture - Preliminary No growth in 48 hours. 07/01/24 11:03 Urine Catheter - Catheter Urine Culture - Final Culture exhibits no growth. 06/30/24 09:27 Sputum, Induced/Lukens Gram Stain - Final 06/30/24 09:27 Sputum, Induced/Lukens Respiratory Culture - Final Staphylococcus aureus 06/27/24 05:55 Blood Culture (Wb) - Left Forearm Blood Culture - Final No growth in 5 days. 06/27/24 05:40 Blood Culture (Wb) - Anticubital Left Blood Culture - Final No growth in 5 days. 06/30/24 10:30 Nasal Secretion MRSA (PCR) - Final 06/27/24 14:15 Sputum, Induced/Lukens Gram Stain - Final 06/27/24 14:15 Sputum, Induced/Lukens Respiratory Culture - Final Mixed normal respiratory michael. No Streptococcus pneumoniae, beta-hemolytic Streptococcus or Staphylococcus aureus isolated. Radiography Diagnostic Testing: Radiology Impression Chest X-Ray 07/03/24 08:00 IMPRESSION: Right internal jugular central catheter is in good position. Reading Location: [place] [address] Rhythm Strip Rhythm Strip: Sinus Rhythm Rate: 90 Ectopy: None Physical Exam Const alert, oriented x3, no apparent distress and average body habitus; Negative for healthy appearing Constitutional Narrative: Upper middle-aged, white male, appears older than stated age, sitting up in chair, appears comfortable, nontoxic at bedside HEENT normocephalic, head/scalp atraumatic and moist oral mucous membranes HEENT Narrative: Mallampati 2, no thrush Resp normal respiratory effort, no retractions, no use of accessory muscles and clear to auscultation bilaterally Auscultation: Negative for crackles, rales, rhonchi or wheezes Cardio regular rate, regular rhythm, S1 normal heart sound, S2 normal heart sound, no murmurs, no rub, no gallops and no clicks GI normal to inspection, nondistended, normoactive bowel sounds, soft to palpation, non-tender and non-distended; Negative for hepatosplenomegaly Extremity no clubbing, cyanosis or edema Extremity Narrative: Pedal pulses are 2+ Skin Skin Narrative: Tunneled dialysis catheter right sites of chest-dressing for insertion site clean dry and intact Neuro oriented x3, moves all extremities and no focal motor deficits Neuro Narrative: Generalized weakness noted but no focal deficits, voice is getting stronger Speech: Negative for speech normal Psych affect normal Psych Narrative: Eye contact is good and patient interacts appropriately Appearance: intubated Assessment & Plan Assessment/Plan (1) HFrEF (heart failure with reduced ejection fraction): (2) Elevated troponin: (3) Acute hypoxic respiratory failure: (4) Acute metabolic acidosis: (5) LG (acute kidney injury): (6) Pulmonary vascular congestion: (7) Metabolic acidosis: PLAN: Plan Acute hypoxic respiratory failure secondary to severe pulmonary edema -Resolved and remains on room air - Extubated 07/02/2024 - I-S/Acapella MSSA tracheobronchitis -Discontinue cefepime and start oral antibiotics with amoxicillin to complete treatment will need 3 more days - Aggressive pulmonary toilet - No infiltrate noted on exam and auscultation is unremarkable - Patient stable on room air Troponin elevation - Highly suspect related to demand ischemia from above -Echocardiogram from 06/27/2024 demonstrated EF of 35% with moderate mitral valve insufficiency and severe global hypokinesis of the LV - Plan is for outpatient cardiology follow-up after discharge Acute HFrEF - Global hypokinesis with no wall motion abnormality -EF 35% on echo from 06/27/2024 - Plan is to initiate goal-directed therapy as tolerated - Continue carvedilol and increased to 6.25 daily - Increase hydralazine to 50 mg 3 times daily -Add Imdur 30 mg daily with anticipated increase tomorrow - Will need outpatient cardiology follow-up - Cardiology has signed off LG on CKD stage IV with concurrent metabolic acidosis - Suspect this is related to uncontrolled DM-2 - Continue intermittent HD per nephrology -Tunneled dialysis catheter in place -Next dialysis is planned for Sunday - Continue to monitor and transition to tunneled dialysis catheter when able Acute on chronic anemia - Hemoglobin was 6.0 on 06/28/2024 - Patient was transfused 3 units of packed red blood cells -Hemoglobin down to 5.6 a.m. on 08/01/2024--> will transfuse 3 units - Hemoglobin remained stable 11.9 today - Monitor closely - EPO per nephrology Essential hypertension - Continue Coreg 6.25 - Increase hydralazine to 50 mg 3 times daily - Add Imdur 30 mg daily - Continue PRNs DM-2 - Fasting blood sugar this morning was 89 - Discontinue SSI and Accu-Cheks - Renal diet initiated DVT prophylaxis -Continue subcu heparin CODE STATUS -Full code Charges/Coding Visit Charges Inpatient E&M: 71438 Subs Hosp L2
[2024-07-04] MEDS: Carvedilol 6.25 MG Tablet PO ×2 (08:00→16:44)
[2024-07-04] MEDS: Isosorbide Mononitrate 30 MG Tablet PO (09:33)
[2024-07-04] MEDS: Heparin Injection (Vial) 5,000 UNIT/ML VIAL 5000 UNIT SC ×2 (09:34→21:14)
--- NOTE | 2024-07-04 10:28 | PN.RENAL_ITS ---
Subjective Subjective No new complaints. Saturating well on room air. Objective Data Objective Data Vital Signs: Vital Signs Temp Pulse Resp BP Pulse Ox O2 Del Method O2 Flow Rate 97.7 F L 70 18 177/86 H 96 Room Air 40 07/04/24 07:40 07/04/24 07:40 07/04/24 07:40 07/04/24 07:40 07/04/24 07:40 07/04/24 07:40 07/03/24 06:44 FiO2 25 07/03/24 06:44 Oxygen Flow Rate (L/min) 40 Oxygen Delivery Method Room Air Weight: 82.2 kg Body Mass Index (BMI) 26.7 Intake & Output: Intake and Output for Last 24 Hours 07/02/24 07/03/24 07/04/24 23:59 23:59 23:59 Intake Total 624.09 / 624.09 180 / 380 800 / 800 Output Total 4195 / 4195 Balance -3570.91 / -3570.91 180 / 380 800 / 800 Lab / Micro Data 07/04/24 05:30 07/04/24 05:30 Labs: Laboratory Results - last 24 hr 07/03/24 11:06: POC Glucose 179 H 07/03/24 15:06: POC Glucose 107 H 07/03/24 20:05: POC Glucose 115 H 07/04/24 05:30: WBC 7.2, RBC 4.12 L, Hgb 11.9 L, Hct 36.2 L, MCV 87.9, MCH 28.9, MCHC 32.9, RDW Std Deviation 45.7 H, RDW Coeff of Hallie 14.1, Plt Count 163, MPV 10.6, Sodium 138, Potassium 4.0, Chloride 102, Carbon Dioxide 16.4 L, Anion Gap 19 H, BUN 58 H, Creatinine 6.47 H, Estim Creat Clear Calc 11.38 L, Est GFR (MDRD) Non-Af 9 L, BUN/Creatinine Ratio 8.9 L, Glucose 89, Calcium 8.4, P hosphorus 5.1 H, Albumin 3.3 L 07/04/24 06:14: POC Glucose 90 Micro: Microbiology 07/01/24 08:00 Blood Culture (Wb) - Left Wrist Blood Culture - Preliminary No growth in 48 hours. 07/01/24 08:00 Blood Culture (Wb) - Right Forearm Blood Culture - Preliminary No growth in 48 hours. 07/01/24 11:03 Urine Catheter - Catheter Urine Culture - Final Culture exhibits no growth. 06/30/24 09:27 Sputum, Induced/Lukens Gram Stain - Final 06/30/24 09:27 Sputum, Induced/Lukens Respiratory Culture - Final Staphylococcus aureus 06/27/24 05:55 Blood Culture (Wb) - Left Forearm Blood Culture - Final No growth in 5 days. 06/27/24 05:40 Blood Culture (Wb) - Anticubital Left Blood Culture - Final No growth in 5 days. 06/30/24 10:30 Nasal Secretion MRSA (PCR) - Final 06/27/24 14:15 Sputum, Induced/Lukens Gram Stain - Final 06/27/24 14:15 Sputum, Induced/Lukens Respiratory Culture - Final Mixed normal respiratory michael. No Streptococcus pneumoniae, beta-hemolytic Streptococcus or Staphylococcus aureus isolated. Rhythm Strip Rhythm Strip: Sinus Rhythm Rate: 90 Ectopy: None Physical Exam Narrative No acute distress noted S1, S2, RRR Lung sounds clear anteriorly Abdomen soft Nonpitting edema bilateral lower legs Tunneled hemodialysis catheter right chest dressing clean, dry and intact Assessment & Plan Assessment/Plan (1) LG (acute kidney injury): (2) CKD (chronic kidney disease) stage 4, GFR 15-29 ml/min: (3) Acute metabolic acidosis: (4) Acute hypoxic respiratory failure: PLAN: Plan Assessment/Plan: The patient is a 64-year-old male with past history of CKD stage G4, type 2 diabetes mellitus, and hypertension. Patient presents to the hospital with acute hypoxic respiratory failure. Checks x-ray shows bilateral pleural effusion with pulmonary vascular congestion. He was also found to have severe renal dysfunction with creatinine of 9.20 mg/dL and severe acute metabolic acidosis with bicarbonate level of 9 mmol/L. Nephrology is asked to see the patient because of LG on CKD. - Acute kidney injury on chronic kidney disease stage G4--> now ESRD Patient has known CKD. Serum creatinine was already 3.53 mg/dL, EGFR 28 mL/min on 02/28/2022. Patient had 2+ proteinuria in February 2022 as well. Urine albumin to creatinine ratio was already 9.8 g/g at that time. Suspicion is progression of CKD which is likely due to diabetic kidney disease given prior history of proteinuria; now ESRD. UPEP was negative [facility] June 27. Patient underwent hemodialysis Placement in outpatient dialysis unit, tentative schedule Sunday, , Sunday Will plan for dialysis tomorrow
--- NOTE | 2024-07-04 10:35 | CASEMGMT ---
Hortencia @ [facility], Received an email from our financial dept advising that they are working on financial clearance and JANNETTE to be completed. I will continue to keep you posted.
[2024-07-04 12:37] LABS: Bedside Glucose 114 mg/dL (74-106)
[2024-07-04] MEDS: hydrALAZINE 25 MG Tablet PO (13:24)
--- NOTE | 2024-07-04 15:02 | CASEMGMT ---
[facility] Coordinator Daylin Ashley states (via the [employer]), Patient is medically and financially cleared to treat on 07/08. Daylin faxed the schedule letter to [facility]. The letter states that the pts chair time is 1245p on Sunday. TC to Radha Holly who states that this had to be changed to 10:10am. Daylin notified. Pt's finalized chair time is 1010 q TTS. Pt to arrive 30 min early on Sunday. CARMEN JEWELL to pt room at this time. Pt up independently at this time. Pt updated with the aforementioned information and states that he is agreeable and thanks this CARMEN JEWELL. At this time, the pt states that he feels safe returning home tomorrow after dialysis with his and denies the need for any additional HH or OP Tx. Pt denies further questions or concerns at this time.
[2024-07-04] MEDS: AMOXICILLIN 500 MG CAPSULE PO (16:43)
[2024-07-04 17:48] LABS: Bedside Glucose 85 mg/dL (74-106)
[2024-07-04] MEDS: 0.9% Saline Lock 10 ML Syringe IV (21:12)
[2024-07-04] MEDS: hydrALAZINE 50 MG Tablet PO (21:14)
[2024-07-05] VITALS (14 sets, daily range): BP systolic 154–211; BP diastolic 67–111; PULSE 67–84; RESP 16–18; TEMP 36.5–36.9; O2SAT 95–100; BMI 26.9; BMI 25.7
[2024-07-05 06:16] LABS: Anion Gap 17 (5-15); BUN 68 mg/dL (4-19); BUN/Creat Ratio 9.5 RATIO (10-20); Calcium,Total 8.4 mg/dL (7.6-11.0); Carbon Dioxide 16.5 mmol/L (21.0-32.0); Chloride 102 mmol/L (98-108); EST Glomerular Filtration Rate 8 (>60); Estimated Creatinine Clearance 10.23 ml/min (50-250); Glucose 91 mg/dL (70-99); Sodium Level 136 mmol/L (133-145)
--- NOTE | 2024-07-05 10:58 | PCM.DC.SUM ---
Providers Date of Admission: 06/27/24 Date of Discharge: 07/05/24 Primary Care Physician: Dr. Omar Trejo, Consultations 06/27/24 08:34 Consult: Entertainment Agent / Pulmonary Medicine Routine Consulting Provider: Intensivists/Pulmonary Med Reason for Consult: Metabolic acidosis and renal failure may need dialysis line EMERGENT Consult: No Notified: Yes Date Notified: 06/27/24 Time Notified: 07:23 Method of Notification: Verbal Consult: Nephrology Routine Consulting Provider: Xu Sanches Reason for Consult: Dialysis EMERGENT Consult: No Notified: Yes Date Notified: 06/27/24 Time Notified: 07:24 Method of Notification: ED Physician Initiated 06/27/24 08:44 Consult: General Surgery Routine Consulting Provider: Franklin Edge Reason for Consult: Tunneled dialysis line EMERGENT Consult: No Notified: Yes Date Notified: 06/27/24 Time Notified: 08:44 Method of Notification: Text 06/27/24 09:36 Consult: Cardiology Routine Consulting Provider: Willem Marinelli Reason for Consult: NSTEMI EMERGENT Consult: No Notified: Yes Date Notified: 06/27/24 Time Notified: 09:36 Method of Notification: Verbal 07/01/24 06:06 Consult: Gastroenterology Routine Consulting Provider: Natalia Gastroentercoty Reason for Consult: suspected GI bleed EMERGENT Consult: No Notified: Yes Date Notified: 07/01/24 Time Notified: 06:07 Method of Notification: Text Reason For Visit: RENAL FAILURE Diagnosis Discharge Diagnosis (1) HFrEF (heart failure with reduced ejection fraction): Status: Acute Code(s): I50.20 - Unspecified systolic (congestive) heart failure (2) Elevated troponin: Status: Acute Code(s): R79.89 - Other specified abnormal findings of blood chemistry (3) Acute hypoxic respiratory failure: Status: Acute Code(s): J96.01 - Acute respiratory failure with hypoxia (4) Acute metabolic acidosis: Status: Acute Code(s): E87.21 - Acute metabolic acidosis (5) LG (acute kidney injury): Status: Acute Code(s): N17.9 - Acute kidney failure, unspecified (6) Pulmonary vascular congestion: Status: Acute Code(s): R09.89 - Other specified symptoms and signs involving the circulatory and respiratory systems (7) Metabolic acidosis: Status: Acute Code(s): E87.20 - Acidosis, unspecified Medications at Discharge Home Medications blood sugar diagnostic (Accu-Chek Erika Plus test strips) #10 ea 07/09/19 blood-glucose meter (Accu-Chek Erika Plus Meter) #1 ea 07/09/19 blood pressure monitor (Blood Pressure Kit) #1 ea 09/29/21 compr.stocking,knee,long,large #12 ea 09/29/21 carvedilol 12.5 mg tablet 12.5 mg PO BIDCM #60 tabs 07/05/24 cefdinir 300 mg capsule 300 mg PO DAILY #3 caps 07/05/24 hydralazine 50 mg tablet 100 mg (2 x 50 mg) PO TID #90 tabs 07/05/24 isosorbide mononitrate 60 mg tablet,extended release 24 hr 60 mg PO DAILY #30 tabs 07/05/24 Hospital Course Operations None Procedures 2-D Echocardiogram, Blood transfusion, Central line placement (Tunneled dialysis catheter/temporary dialysis catheter), Dialysis, EKG and Intubation Summary of Care Provided Minutes Spent on Discharge: 45 Hospital Course: Patient is a 64-year-old white male who presents emergency department at [facility] on 06/27/2024 with a chief complaint of shortness of breath. Patient awoke from sleeping on the morning of presentation with acute onset shortness of breath. He had been previously diagnosed with nephrotic syndrome for which she was referred to wool dyer in [place] several years ago however due to lack of employment the patient never followed up with a wool dyer. He has known history of diabetes and hypertension on presentation. At the time of presentation his last creatinine that we had available was 2.53 in February 2022. Vital signs on presentation showed a temperature of 97.2, heart rate 91, respiratory rate 33, blood pressure was 166/67 and oxygen saturations were 100% on BiPAP at 100%. CBC showed a slightly elevated white count of 13,000 with a hemoglobin of 8.2 which appears to be chronic antiplatelet count of 290,000. ABG showed a pH of 7.02 with a pCO2 of 37 and a pO2 of 214. Chemistry panel showed a bicarb of 8.6 with a BUN of 70 and serum creatinine 9.2. Lactic acid was 2.6. Troponin was 67 and BNP was 48,591. Chest x-ray was consistent with congestive heart failure. The patient was placed on sodium bicarb drip and admitted to the intensive care unit. Initially was on BiPAP and able to be weaned however shortly after he became significantly dyspneic with pending respiratory distress having increased work of breathing and tachypnea and he required intubation. He was intubated and a temporary hemodialysis catheter was placed. Echocardiogram done on the day of admission showed an EF of 35% with mild to moderate eccentric mitral valve insufficiency and no wall motion abnormality. Given his heart failure, cardiology was consulted. Given his critical illness, cardiac workup was deferred and prior to discharge we were able to place him on goal-directed therapy for reduced ejection fraction. He had intermittent dialysis and he was able to decrease his oxygen demand and ventilator support. General surgery was consulted for a tunneled dialysis catheter which was initially to be placed on 06/30/2024 however the patient developed a fever. Cultures were obtained and he was started on broad-spectrum antibiotics. Culture showed MSSA pneumonia and ultimately he was transitioned to Omnicef at discharge. He was initially placed on amoxicillin however he developed a rash related to this. He has 3 more days at discharge. He was extubated on 07/02/2024. Tunneled dialysis catheter was able to be placed finally by general surgery on 07/03/2024. Patient tolerated procedure well. He remained afebrile after placement of dialysis catheter. He was run twice with his new temporary dialysis catheter without difficulty. Again we were able to optimize his blood pressure control with goal-directed therapy for his newly diagnosed heart failure with reduced ejection fraction. At discharge she was on carvedilol 12.5 mg p.o. twice daily, hydralazine 100 mg p.o. 3 times daily, and Imdur 60 mg daily. Antibiotics were completed with cefdinir 300 mg daily to be taken after dialysis on dialysis days. I have asked him to call cardiology office early next week to set up a hospital follow-up appointment. I do anticipate he will have an ischemic workup with a stress test and a repeat echocardiogram after he has been on goal-directed therapy for 6 to 8 weeks. He may need some up titration of his antihypertensives. He did have some acute on chronic anemia during his hospital course and required transfusion. Ultimately he had 6 units of packed red blood cells. He had no signs of acute bleeding and hemoglobin was stable in the 10-12 range at the time of discharge. His hemoglobin A1c was found less than 4.2 however he was anemic. This was probably low given his anemia. But his blood sugars during his hospital course were not high enough to warrant any oral or insulin therapy at the time of discharge. I would recommend a repeat hemoglobin A1c be obtained in 6 months. He is to follow-up with [facility] in [place] for dialysis on Sunday. His dialysis schedule is set to be T/R/S. He will follow-up with nephrology there and then ongoing as an outpatient at their direction. He also should see his primary care physician within the next week or 2. Discharge diagnoses: Acute hypoxic respiratory failure Severe pulmonary edema MSSA tracheobronchitis Troponin elevation Acute HFrEF LG CKD stage IV Anion gap metabolic acidosis Acute on chronic anemia Essential hypertension DM-2 Physical Exam Const alert, oriented x3, no apparent distress and average body habitus; Negative for healthy appearing Constitutional Narrative: Upper middle-aged, white male, appears older than stated age, sitting up in chair, appears comfortable, currently on dialysis and dialysis nurse at bedside General Appearance: cooperative, comfortable, well kempt, intubated and patient mechanically ventilated Exam Limitations: no limitations HEENT normocephalic, head/scalp atraumatic, hearing grossly normal bilaterally and moist oral mucous membranes HEENT Narrative: Mallampati 2, no thrush Eyes EOMs intact bilaterally and conjunctivae normal Eyes Narrative: No scleral icterus Neck supple and no JVD Neck Narrative: Trachea midline Resp normal respiratory effort, no retractions, no use of accessory muscles and clear to auscultation bilaterally Auscultation: Negative for crackles, rales, rhonchi or wheezes Cardio regular rate, regular rhythm, S1 normal heart sound, S2 normal heart sound, no murmurs, no rub, no gallops and no clicks GI normal to inspection, nondistended, normoactive bowel sounds, soft to palpation and non-tender Extremity no clubbing, cyanosis or edema Extremity Narrative: Pedal pulses are 2+ Skin no jaundice, no petechiae and no mottling Skin Narrative: Tunneled dialysis catheter right sites of chest-dressing for insertion site clean dry and intact Neuro oriented x3, moves all extremities and no focal motor deficits Neuro Narrative: Mild generalized weakness noted but no focal deficits Speech: speech normal Psych affect normal Psych Narrative: Eye contact is good and patient interacts appropriately Weight / BMI Weight Weight: 82.6 kg Body Mass Index (BMI) 26.9 ABG / Lab / Microbiology Data 07/04/24 05:30 07/05/24 05:29 Laboratory: Laboratory Results - last 24 hr 07/04/24 12:08: POC Glucose 114 H 07/04/24 17:30: POC Glucose 85 07/05/24 05:29: Sodium 136, Potassium 4.0, Chloride 102, Carbon Dioxide 16.5 L, Anion Gap 17 H, BUN 68 H, Creatinine 7.20 H, Estim Creat Clear Calc 10.23 L, Est GFR (MDRD) Non-Af 8 L, BUN/Creatinine Ratio 9.5 L, Glucose 91, Calcium 8.4 Microbiology: Microbiology 07/01/24 08:00 Blood Culture (Wb) - Left Wrist Blood Culture - Preliminary No growth in 48 hours. 07/01/24 08:00 Blood Culture (Wb) - Right Forearm Blood Culture - Preliminary No growth in 48 hours. 07/01/24 11:03 Urine Catheter - Catheter Urine Culture - Final Culture exhibits no growth. 06/30/24 09:27 Sputum, Induced/Lukens Gram Stain - Final 06/30/24 09:27 Sputum, Induced/Lukens Respiratory Culture - Final Staphylococcus aureus 06/27/24 05:55 Blood Culture (Wb) - Left Forearm Blood Culture - Final No growth in 5 days. 06/27/24 05:40 Blood Culture (Wb) - Anticubital Left Blood Culture - Final No growth in 5 days. 06/30/24 10:30 Nasal Secretion MRSA (PCR) - Final 06/27/24 14:15 Sputum, Induced/Lukens Gram Stain - Final 06/27/24 14:15 Sputum, Induced/Lukens Respiratory Culture - Final Mixed normal respiratory michael. No Streptococcus pneumoniae, beta-hemolytic Streptococcus or Staphylococcus aureus isolated. D/C Instructions Discharge Diet: Low fat / Low cholesterol (Try to limit fluid intake to 2 L or less daily/try to limit salt intake to 3 g or less daily) and Renal Diet Discharge Activity: Return to Normal Activity DC O2, CPAP, BIPAP Needs Home O2 Discharge instructions: No Meaningful Use Info Meaningful Use Meaningful Use Diagnoses (Choose all that apply): None applicable Ischemic Stroke Statin Dosing Therapy Reference: STATIN DOSE THERAPY REFERENCE: * Patients > 75 years receive moderate or high dose statin therapy. * Patients 75 years or YOUNGER should receive HIGH intensity statin dose unless contraindicated. You will be required to document reason for non-treatment if statin daily dose does not meet guidelines. HIGH DOSE STATIN THERAPY DAILY Atorvastatin > than or = to 40 mg Rosuvastatin > than or = to 20 mg Amlodipine + Atorvastatin > than or = to 2.5/40 mg Ezetimibe + Simvastatin 10/80 mg Simvastatin 80mg Discharge Plan Admission Admit Date/Time: 06/27/24 07:21 Primary Reason for Your Visit: Shortness of breath Attending Provider: Milagros Beebe Primary Care Provider: Omar Trejo Consulting Providers: Mateo Cabello; Willem Marinelli; Franklin Edge; Xu Sanches Instructions Additional Instructions / Restrictions: 1. Please call the caustic pump operator office on Sunday to schedule a follow-up. 2. Overall goal blood pressure is going to be less than 130/80 ultimately but it will likely take us time to get there 3. Please complete antibiotics as ordered 4. You have dialysis starting Sunday as an outpatient at [facility] in [place] Discharge Orders/Prescriptions Prescriptions: New carvedilol 12.5 mg Tablet 12.5 mg PO BIDCM Qty: 60 1RF cefdinir 300 mg Capsule 300 mg PO DAILY Qty: 3 0RF Rx Instructions: Take after dialysis on dialysis days hydralazine 50 mg Tablet 100 mg PO TID Qty: 90 1RF isosorbide mononitrate 60 mg Tablet Extended Release 24 Hr 60 mg PO DAILY Qty: 30 1RF Continued (DME) blood-glucose meter [Accu-Chek Erika Plus Meter] Misc See Rx Instructions .ROUTE .MEDSUPPLY Qty: 1 Rx Instructions: As directed once daily (DME) blood sugar diagnostic [Accu-Chek Erika Plus test strp] Strip See Rx Instructions .ROUTE .MEDSUPPLY Qty: 10 Rx Instructions: As directed once daily (DME) blood pressure monitor [Blood Pressure Kit] Kit See Rx Instructions .Route Qty: 1 0RF Rx Instructions: Check blood pressure twice a day (DME) compr.stocking,knee,long,large Misc See Rx Instructions .Route Qty: 12 0RF Rx Instructions: wear daily 20-30mmHg Discontinued valsartan 320 mg tablet 320 mg PO DAILY Qty: 30 2RF amlodipine 10 mg tablet 10 mg PO DAILY Qty: 30 2RF Referrals / Follow Up: Omar Trejo DO [Primary Care Provider] - Within 1 Week Anni Collazo MD [Med Staff - Consulting] - See Referral Note (At dialysis center and outpatient thereafter as directed by physician) Willem Marinelli MD [Med Staff - Active Staff] - Within 2 Weeks (Please call Sunday to set up an appointment) Disposition Disposition (needs filled in before D/C Order can be placed): Home, Self Care Charges/Coding Visit Charges Inpatient E&M: 08557 Disch Hosp >30min
[2024-07-05] MEDS: Heparin 10,000 UNITS/10 ML Vial 3000 UNITS IV (11:40)
[2024-07-05] MEDS: 0.9% Normal Saline 1,000 ML IV.SOLN. 1000 ML OPERA.SITE (11:40)
[2024-07-05] MEDS: PureFlow B 2K Dialysis Soln 1 BAG 6 BAG PF (11:41)
[2024-07-05] MEDS: Senna/Docusate Sodium 1 Tablet 2 TABLET PO (12:25)
[2024-07-05] MEDS: Isosorbide Mononitrate 60 MG Tablet PO (12:25)
[2024-07-05] MEDS: Cefdinir 300 MG Capsule PO (12:30)
--- NOTE | 2024-07-05 12:31 | CASEMGMT ---
CARMEN JEWELL called [facility] and cost of prescriptions is $57.47. CARMEN JEWELL updated patient and . Patient is able to afford medicaitons and will be paying in arita with exact change. Patient denied further needs or concerns. CARMEN JEWELL called P and updated that patient would like meds to bed and has exact change for payment in arita.
--- NOTE | 2024-07-08 08:46 | CASEMGMT ---
Rosemary from [facility] [employer] notifies this RN CM that the pt was approved for Medicaid with retro back to Mar 12.
== END 2024-07-05 13:31 | disposition home or self-care (01) | DRG 130 ==
LOC: ED 07:22 → ICU 07:35 → PCU 07-03 17:18
PROVIDERS: Internal Medicine Critical Care Medicine; Internal Medicine Nephrology; Nurse Practitioner Adult Health; Surgery; Admitting Provider Family Medicine; Emergency Provider Emergency Medicine; PCP Family Medicine; Visit Provider Internal Medicine
PROC: 0JH63XZ Insertion of Tunneled Vascular Access Device into Chest Subcutaneous Tissue and Fascia, Percutaneous Approach (ICD-10-PCS; principal; 2024-07-03 07:15)
DX: J96.01 Acute respiratory failure with hypoxia (principal); J04.10 Acute tracheitis without obstruction; I50.21 Acute systolic (congestive) heart failure; E87.21 Acute metabolic acidosis; D63.1 Anemia in chronic kidney disease; E87.71 Transfusion associated circulatory overload; N18.4 Chronic kidney disease, stage 4 (severe); E11.22 Type 2 diabetes mellitus with diabetic chronic kidney disease; I13.0 Hypertensive heart and chronic kidney disease with heart failure and stage 1 through stage 4 chronic kidney disease, or unspecified chronic kidney disease; I34.0 Nonrheumatic mitral (valve) insufficiency; I24.89 Other forms of acute ischemic heart disease; J81.1 Chronic pulmonary edema; N17.9 Acute kidney failure, unspecified; J98.11 Atelectasis; Z99.2 Dependence on renal dialysis; M54.9 Dorsalgia, unspecified; Z79.4 Long term (current) use of insulin; J40 Bronchitis, not specified as acute or chronic; N04.9 Nephrotic syndrome with unspecified morphologic changes; G89.29 Other chronic pain; Z79.891 Long term (current) use of opiate analgesic; R50.9 Fever, unspecified; R21 Rash and other nonspecific skin eruption; T36.95XA Adverse effect of unspecified systemic antibiotic, initial encounter; Y92.239 Unspecified place in hospital as the place of occurrence of the external cause; B95.61 Methicillin susceptible Staphylococcus aureus infection as the cause of diseases classified elsewhere
CPT/HCPCS: 31500; 31720; 36415; 36600; 71045; 74176; 76000; 76770; 80048; 80053; 80069; 80202; 81001; 82550; 82728; 82803; 82962; 83036; 83540; 83550; 83605; 83735; 83880; 84100; 84145; 84478; 84484; 85014; 85018; 85025; 85027; 85610; 85730; 86037; 86038; 86200; 86225; 86235; 86431; 86850; 86900; 86901; 87040; 87070; 87077; 87086; 87186; 87205; 87340; 87641; 90937; 93005; 93308; 93970; 94002; 94003; 94660; 94668; 97110; 97162; 97166; 97530; 97535; 97802; 97803; 99252; 99285; 99406; C1750; P9016; A4216; C1752; G0257; G0463; J1940; J2405

== ENCOUNTER → 2024-08-06 | Outpatient (CLI) | payer MEDICAID, SELFPAY ==
--- NOTE | 2024-08-06 09:49 | VDUE_ITS ---
Reason For Study Reason For Study: Dialysis Access Right Lower Arm Left Arm Radial artery measures 0.29x0.26 cm with a velocity Brachial artery measures 0.62x0.51 cm with a velocity of 72.0 cm/s. of 90.1 cm/s. Right Arm Cephalic Vein at distal forearm measures 0.13x0.12 Brachial artery measures 0.51x0.54 cm with a velocity cm. of 99.1 cm/s. Cephalic Vein at mid forearm measures 0.14x0.16 cm. Cephalic Vein at distal forearm measures 0.28x0.27 Cephalic Vein proximal forearm measures 0.26x0.30 cm. cm. Cephalic Vein distal upper arm measures 0.26x0.27 cm. Cephalic Vein at mid forearm measures 0.31x0.36 cm. Cephalic Vein at mid upper arm measures 0.28x0.26 cm. Cephalic Vein proximal forearm measures 0.40x0.48 cm. Cephalic Vein at proximal upper arm measures Cephalic Vein distal upper arm measures 0.20x0.20 cm. 0.33x0.36 cm. Cephalic Vein at mid upper arm measures 0.17x0.20 cm. Proximal Basilic vein measures 0.67x0.73 cm. Cephalic Vein at proximal upper arm measures Mid Basilic vein measures 0.37x0.45 cm. 0.37x0.33 cm. Distal Basilic vein measures 0.43x0.44 cm. Proximal Basilic vein measures 0.62x0.77 cm. Left Lower Arm Mid Basilic vein measures 0.46x0.47 cm. Radial artery measures 0.27x0.28 cm with a velocity Distal Basilic vein measures 0.54x0.57 cm. of 73.2 cm/s. Procedure Exam performed in department. VL/Dialysis Vein Map PRE-OP BILAT Interpretation Summary Bilateral upper extremity arteries patent with normal waveforms and measurement s above. Bilateral upper extremity veins patent, measurements above. Ordering Physician: Anni Collazo Referring Physician: Karlos Trejo M.D. Performed By: Gabriela Olsen RVT ???
== END | disposition home or self-care (01) ==
LOC: CVS 09:46
PROVIDERS: PCP Family Medicine; Referring Provider Internal Medicine Nephrology; Visit Provider Internal Medicine Nephrology
DX: N18.6 End stage renal disease (principal)
CPT/HCPCS: 93985

== ENCOUNTER → 2024-10-14 | Outpatient (CLI) | payer MEDICARE, SELFPAY ==
--- NOTE | 2024-10-14 09:39 | ECHOD_ITS ---
Reason For Study Reason For Study: HFrEF Procedure This was a 2D Doppler, Color Flow transthoracic echocardiogram. The study was technically difficult. Exam performed in department. Left Ventricle Normal LV size. Mild concentric left ventricular hypertrophy. Left ventricular systolic function is normal. The left ventricular ejection fraction is 55 %. No regional wall motion abnormalities noted. Right Ventricle Normal RV size. Normal systolic function. Atria Normal left atrium. Normal right atrium. Mitral Valve Mild focal mitral valve calcification of the anterior leaflet. Tricuspid Valve Normal tricuspid valve. Aortic Valve Trisinus/trileaflet aortic valve. Pulmonic Valve Normal pulmonic valve. Great Vessels Normal aortic root. The pulmonary artery is normal size. Inferior vena cava collapse with sniff. Pericardium/Pleural No pericardial effusion. MMode/2D Measurements & Calculations LVIDd: 6.0 cm IVSd: 1.2 cm LVOT diam: 2.2 cm LVIDs: 3.5 cm LVPWd: 1.2 cm LVOT area: 3.8 cm2 RVDd: 3.2 cm FS: 41.7 % asc Aorta Diam: 3.7 cm LAV(MOD-bp): 38.5 ml LVAd ap4: 27.8 cm2 LAV(MOD-bp) Indexed: 19.3 ml/m2 LVLd ap4: 7.1 cm LAV(MOD-sp2): 34.7 ml EDV(MOD-sp4): 88.6 ml LAV(MOD-sp4): 40.8 ml EDV(sp4-el): 92.8 ml LVAs ap4: 16.6 cm2 LVLs ap4: 5.9 cm ESV(MOD-sp4): 38.4 ml ESV(sp4-el): 39.5 ml EF(MOD-sp4): 56.6 % EF(sp4-el): 57.4 % LVAd ap2: 18.7 cm2 SV(MOD-sp4): 50.1 ml SV(MOD-sp2): 24.2 ml LVLd ap2: 7.0 cm SI(MOD-sp4): 25.1 ml/m2 SI(MOD-sp2): 12.1 ml/m2 EDV(MOD-sp2): 39.8 ml EDV(sp2-el): 42.4 ml LVAs ap2: 10.7 cm2 LVLs ap2: 6.0 cm ESV(MOD-sp2): 15.7 ml ESV(sp2-el): 16.2 ml EF(MOD-sp2): 60.7 % SV(sp4-el): 53.3 ml Ao sinus diam: 3.[address] Junction: 2.3 cm LA dimension(2D): 3.7 cm LA A4 area: 16.9 cm2 RA A4 area: 13.5 cm2 TAPSE: 2.3 cm Time Measurements MV dec time: 0.19 sec Doppler Measurements & Calculations MV E max robel: 81.7 cm/sec Lat Peak E' Robel: 11.0 cm/sec Med Peak E' Robel: 10.0 cm/sec MV A max robel: 73.5 cm/sec E/E' lat: 7.5 E/E' med: 8.2 MV E/A: 1.1 MV dec slope: 435.8 cm/sec2 Ao V2 max: 166.5 cm/sec LV V1 max: 146.7 cm/sec Ao max P.1 mmHg LV V1 max P.6 mmHg Ao V2 mean: 110.8 cm/sec LV V1 mean P.0 mmHg Ao mean P.6 mmHg LV V1 mean: 106.7 cm/sec Ao V2 VTI: 36.7 cm LV V1 VTI: 33.8 cm AV (velocity ratio): 0.92 EAMON(I,D): 3.5 cm2 EAMON(V,D): 3.4 cm2 SV(LVOT): 129.7 ml PA V2 max: 114.8 cm/sec ECHO/Echo Complete Interpretation Summary Normal LV size. Left ventricular systolic function is normal. The left ventricular ejection fraction is 55 %. Mild concentric left ventricular hypertrophy. Mild focal mitral valve calcification of the anterior leaflet. Ordering Physician: Nela Khan Referring Physician: Nela Khan Performed By: Ange Ace RDCS
== END | disposition home or self-care (01) ==
LOC: CVS 09:38
PROVIDERS: PCP Family Medicine; Referring Provider Nurse Practitioner Gerontology; Visit Provider Nurse Practitioner Gerontology
DX: I11.0 Hypertensive heart disease with heart failure (principal); I50.20 Unspecified systolic (congestive) heart failure
CPT/HCPCS: 93306

== ENCOUNTER → 2025-01-15 | Outpatient (CLI) | payer MEDICARE, MEDICAID, SELFPAY ==
--- NOTE | 2025-01-15 13:07 | RAD_ITS ---
PROCEDURE: HAND MIN 3 VIEWS 01/15/2025 REASON FOR EXAM: PAIN IN THE BASE OF THE THUMB TECHNIQUE: Procedure Code: ALLISON Modality: DX Procedure: HAND MIN 3 VIEWS Laterality: Right COMPARISON: None. 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 Mild degenerative changes seen at the scaphoid trapezial trapezoidal joint. Minimal to mild degenerative changes are seen elsewhere in the fingers. No acute fracture or dislocation is noted. Reading Location: [place] [id number]
== END | disposition home or self-care (01) ==
PROVIDERS: PCP Family Medicine; Referring Provider Family Medicine; Visit Provider Family Medicine
DX: M79.644 Pain in right finger(s) (principal)
CPT/HCPCS: 73130